=== PATIENT | female | born 1960 | race African-American/Black ===

== ENCOUNTER → 2016-10-04 | Outpatient (CLI) | payer OTHER ==
[~2016-10-04] MED LIST: ADULT LOW DOSE81 MG PO; AMLODIPINE BESY10 MG PO; APAP500 PO; ATIVAN1 MG PO; BENZTROPINE ME0.5 MG PO; CELEXA 20 MG TA20 MG PO; CLOZAPINE; CLOZAPINE25 MG PO; CORRECTOL5 M1 PO; DEPAKOTE500 MG PO; DUONEB 2.5-0.5 M3 ML INH; ENALAPRIL MALEAT5 M1 PO; FERRO-TIME325 MG PO; FERROUS GLUCON325 M4 PO; GEMFIBROZIL 60600 MG PO; GLUCOPHAGE1000 MG PO; GLUCOPHAGE500 MG PO; HALDOL5 MG/1 ML IM; HALOPERIDO50 MG/1 M1 IM; IRON325 PO; LANTUS SUBQ; LEVOTHYROXIN0.125 M1 PO; LEVOTHYROXIN0.137 M1 PO; LIPITOR20 MG PO; LITHIUM CARBON150 MG PO; MUCINEX600 MG PO; MULTI VITAMIN1 EACH PO; NEURONTIN 400400 M1 PO; SEROQUEL 100 M100 MG PO; THERAPEUTIC-M1 EAC2; VITCB500GO PO; ZPAK
== END ==
LOC: RAD 01:09
DX: Z12.31 Encounter for screening mammogram for malignant neoplasm of breast (principal)

== ENCOUNTER → 2016-12-21 | Outpatient (CLI) | payer OTHER | LOC: ULTRA 10-07 01:03 | DX: N63 Unspecified lump in breast (principal) ==

== ENCOUNTER → 2018-02-05 | Outpatient (CLI) | payer OTHER | LOC: RAD 12:41 → SPEECH 12:41 | DX: I11.0 Hypertensive heart disease with heart failure (principal); I50.9 Heart failure, unspecified; R13.13 Dysphagia, pharyngeal phase; E11.8 Type 2 diabetes mellitus with unspecified complications; E03.9 Hypothyroidism, unspecified; F20.0 Paranoid schizophrenia; M25.562 Pain in left knee ==

== ENCOUNTER 2018-10-03 13:53 | Inpatient (IN) | payer OTHER ==
[2018-10-03] VITALS (24 sets, daily range): BP systolic 78–107; BP diastolic 36–61
[~2018-10-03] VITALS: Ht 170.2 cm; Wt 67.4 kg
[~2018-10-03 13:53] MED LIST changes: -APAP500 PO; +ATIVAN0.5 MG PO; -ATIVAN1 MG PO; +BISA-LAX5 MG PO; -CORRECTOL5 M1 PO; -DUONEB 2.5-0.5 M3 ML INH; -GLUCOPHAGE1000 MG PO; +IPRAT-ALBUT 0.5-3 ML INH; -LEVOTHYROXIN0.137 M1 PO; +LEVOXYL125 MCG PO; +METFORMIN HCL1000 M1 PO; +TYLENOL325 MG PO
[2018-10-03 14:24] LABS: HEMATOCRIT 25.6 % (37.0-47.0); HEMOGLOBIN 8.5 gm/dL (12.0-15.0); MCH 28.3 pg (26.0-34.0); MCHC 33.1 g/dL (28.0-37.0); MCV 85.4 fL (80.0-100.0); PLATELET COUNT 629 thou/uL (150-400); RDW 16.5 % (10.5-14.5); WBC 12.9 thou/uL (4.0-11.0)
[2018-10-03 14:33] LABS: ANION GAP 11 mmol/L (7-16); BUN 15 mg/dL (7-18); CALCIUM 8.9 mg/dL (8.5-10.1); CHLORIDE 100 mmol/L (98-107); CO2 27 mmol/L (21-32); CREATININE 1.5 mg/dL (0.6-1.0); GLUCOSE 181 mg/dL (74-106); POTASSIUM 4.1 mmol/L (3.5-5.1); SODIUM 138 mmol/L (136-145)
[2018-10-03 14:35] LABS: URINE BILIRUBIN NEGATIVE (Negative); URINE BLOOD NEGATIVE (Negative); URINE CLARITY CLEAR; URINE COLOR YELLOW; URINE GLUCOSE-RANDOM* TRACE (Negative); URINE KETONES NEGATIVE (Negative); URINE LEUKOCYTES NEGATIVE (Negative); URINE NITRITE NEGATIVE (Negative); URINE PROTEIN (DIPSTICK) TRACE (Negative); URINE SPECIFIC GRAVITY >= 1.030 (1.005-1.035)
[2018-10-03 14:41] LABS: ALBUMIN 2.3 g/dL (3.4-5.0); SGOT 23 U/L (15-37); SGPT 36 U/L (30-65); TOTAL BILIRUBIN 0.3 mg/dL (<0.1-1.0); TOTAL PROTEIN 8.1 g/dL (6.4-8.2); TROPONIN-I <0.06 ng/mL (<0.06)
[2018-10-03 14:59] LABS: BE(vivo) -2.4 mmol/L (-2 to +3); HCO3 22.9 mmol/L (22.0-26.0); PO2 72.6 mmHg (80.0-100.0); pH 7.355 (7.360-7.450)
[2018-10-03 15:26] LABS: ABSOLUTE NEUTROPHILS 11.4 thou/uL (1.4-8.2)
[2018-10-03 15:27] LABS: ANISOCYTOSIS 1+; POLYCHROMASIA OCCASIONAL
[2018-10-03] MEDS ORDERED: HUMALOG100 UNIT/1 SUBQ (15:37)
[2018-10-03] MEDS ORDERED: ASPIR 8181 MG PO (15:39)
[2018-10-03] MEDS ORDERED: COREG6.25 MG PO (15:41)
[2018-10-03] MEDS ORDERED: LISINOPRIL2.5 MG PO (15:44)
[2018-10-03] MEDS ORDERED: TRAMADOL 50 MG50 MG PO (15:46)
[2018-10-03] MEDS ORDERED: OXYBUTYNIN 5 MG5 M2 PO (15:46)
[2018-10-03] MEDS ORDERED: GLUCOTROL5 MG PO (15:47)
[2018-10-03 16:59] LABS: HCO3 24.3 mmol/L (22.0-26.0); PCO2 48.3 mmHg (35.0-45.0); PO2 102.8 mmHg (80.0-100.0); sO2 97.2 % (92.0-98.0)
[2018-10-03 17:02] LABS: pH 7.319 (7.360-7.450)
[2018-10-03 18:57] LABS: % SATURATION 7 % (20-39); IRON 18 ug/dL (50-170); TIBC 241 ug/dL (250-450)
--- NOTE | 2018-10-03 19:03 | 2DMMODE ---
[facility] [place] [address] 2 D/M-MODE ECHOCARDIOGRAM Name: TIM BAZZI Room #: 240-P [facility] IN [facility]#: [id number] ������������� Admission: 10/03/18 ������������� Attend Phys: Huan Oliveira, Discharge: ��� ������������� ��� Date of : 60 Date of Service: 10/03/18 1903 �� Report #: [id number] �������� ��������������������������������������������[id number] THIS REPORT FOR: //name// APPROVED REPORT Study performed: 10/03/2018 17:51:11 EXAM: Comprehensive 2D, Doppler, and color-flow Echocardiogram Patient Location: ER Status: on-call/STAT BSA: 1.93 HR: 91 bpm BP: 87/50 mmHg Other Information Study Quality: Good Indications Short of air, Pericardial effusion, new onset CHF. Hx: HTN, HLP, DM, Tob. 2D Dimensions RVDd: 35.23 mm IVSd: 10.40 (7-11mm) LVOT Diam: 21.05 (18-24mm) LVDd: 55.59 mm PWd: 9.23 (7-11mm) Ascending Ao: 32.79 (22-36mm) LVDs: 45.86 (25-40mm) Aortic Root: 30.76 mm Volumes Left Atrial Volume (Systole) Single Plane 4CH: 42.36 mL Single Plane 2CH: 58.68 mL LA ESV Index: 28.00 mL/m2 Aortic Valve AoV Peak Shravan.: 1.50 m/s AO Peak Gr.: 9.04 mmHg LVOT Max P.41 mmHg LVOT Max V: 1.05 m/s YUMIKO Vmax: 2.43 cm2 Pulmonary Valve PV Peak Shravan.: 0.77 m/s PV Peak Gr.: 2.40 mmHg Tricuspid Valve [facility] [address] [place] [address] 2 D/M-MODE ECHOCARDIOGRAM Name: TIM BAZZI Room #: [address] [place] [address] [place] [facility].#: [id number] ������������� Admission: 10/03/18 ������������� Attend Phys: Huan Oliveira, Discharge: ��� ������������� ��� Date of : 60 Date of Service: 10/03/18 1903 �� Report #: [id number] �������� ��������������������������������������������[id number] TR Peak Shravan.: 2.29 m/s RAP Estimate: 10.00 mmHg TR Peak Gr.: 20.93 mmHg PA Pressure: 31.00 mmHg Left Ventricle The left ventricle is normal size. There is normal left ventricular wall thickness. Left ventricular systolic function is moderately decreased. LVEF is 40-45%. This study is not technically sufficient to allow evaluation of the LV diastolic function. Right Ventricle The right ventricle is normal size. Right ventricle is mildly hypokinetic. Atria The left atrium size is normal. The right atrium size is normal. Aortic Valve Aortic valve is trileaflet, minimally calcified. Moderate aortic regurgitation. There is no aortic valvular stenosis. Mitral Valve Mitral valve leaflets are mildly thickened. Moderate to severe mitral regurgitation No evidence of mitral valve stenosis. Tricuspid Valve The tricuspid valve is normal in structure. Mild tricuspid regurgitation. Estimated PAP is 30mmHg. Pulmonic Valve The pulmonary valve is normal in structure. Trace pulmonic regurgitation. Great Vessels The aortic root is normal in size. The ascending aorta is normal in size. IVC is normal in size and collapses <50% with inspiration. Pericardium Moderate to moderately large pericardial effusion. <Conclusion> Left ventricular systolic function is moderately decreased. LVEF is 40-45%. [facility] [address] [place] [address] 2 D/M-MODE ECHOCARDIOGRAM Name: BAZZITIM Room #: 240-P [facility] IN [facility].#: [id number] ������������� Admission: 10/03/18 ������������� Attend Phys: Huan Oliveira, Discharge: ��� ������������� ��� Date of : 60 Date of Service: 10/03/18 1903 �� Report #: [id number] �������� ��������������������������������������������[id number] Aortic valve is trileaflet, minimally calcified, no stenosis. Moderate aortic regurgitation. Mitral valve leaflets are mildly thickened. Moderate to severe mitral regurgitation Mild tricuspid regurgitation. Estimated pulmonary artery pressure of 30mmHg. Moderate to moderately large pericardial effusion. Pleural effusions EF similar to May 2013. AI similiar, MR less than previously. Pericardial effusion not present on prior study ��������������������������������������������� <ELECTRONICALLY SIGNED> ���������������������������������������� By: Kamaljit Segal MD, [facility] ��������������������������������������������� 10/03/181902 02 02 Kamaljit Segal MD, [facility] /INF
[2018-10-03 19:35] LABS: TOTAL PROTEIN 7.4 g/dL (6.4-8.2)
--- NOTE | 2018-10-03 23:03 | NUR ---
VASCULAR ACCESS CONSULTED FOR A CL FOR THIS PT ON MULTIPLE IV MEDS AND PRESSORS. 5FRTLPICC PLACED IN RT IJ PER HOSPITAL P&P. TIP AT THE [facility] AND RELEASED FOR USE. PLEASE SEE INSERTION NOTE FOR DETAILS.
[2018-10-04] VITALS (68 sets, daily range): BP systolic 63–137; BP diastolic 28–64
[2018-10-04 05:34] LABS: HEMATOCRIT 22.5 % (37.0-47.0); HEMOGLOBIN 7.5 gm/dL (12.0-15.0); MCH 28.6 pg (26.0-34.0); MCHC 33.4 g/dL (28.0-37.0); MCV 85.4 fL (80.0-100.0); RBC 2.63 mil/uL (4.20-5.00); RDW 16.3 % (10.5-14.5); WBC 11.4 thou/uL (4.0-11.0)
[2018-10-04 05:45] LABS: ANION GAP 7 mmol/L (7-16); BUN 16 mg/dL (7-18); CALCIUM 8.1 mg/dL (8.5-10.1); CHLORIDE 102 mmol/L (98-107); CO2 29 mmol/L (21-32); CREATININE 1.4 mg/dL (0.6-1.0); GLUCOSE 155 mg/dL (74-106); MAGNESIUM 1.8 mg/dL (1.8-2.4); POTASSIUM 3.2 mmol/L (3.5-5.1); SODIUM 138 mmol/L (136-145); TROPONIN-I <0.06 ng/mL (<0.06)
--- NOTE | 2018-10-04 06:25 | NUR ---
END OF SHIFT SUMMARY: Pt has been intermittently restless and awake tonight despite being on Propofol 20-25 mcg/kg/min. Pt opens eyes to voice, able to follow commands and lift head off pillow. BP low with sedation so pt has been on Levophed gtt to keep SBP >90 and MAP >60; Levophed currently at 12 mcg/min. Pt given Lasix at beginning of shift, diuresed well, 2050 cc clear yellow urine this shift. Monitor remains sinus rhythm with 1st degree AVB and BBB. O2 sat 98-100% on 40% FiO2 per vent. Suctioning minimal pink tinged thin secretions from ETT. Remains in soft wrist restraints bilaterally as pt always reaches for ETT when awake.
[2018-10-04 09:12] LABS: APTT 32.7 Seconds (24.5-32.8); INR 1.3; PROTIME 13.1 Seconds (9.3-11.4)
--- NOTE | 2018-10-04 11:20 | HC ---
[facility] [place] [address] CONSULTATION Name: TIM BAZZI Room #: 240-[facility] IN M.R.#: [id number] Admission: 10/03/18 ������������������ Attend Phys: Huan Oliveira MD Discharge: ������������������ Date of : 60 Report #: [id number] THIS REPORT FOR: //name// CC: Orlando Oliveira DATE OF SERVICE: 10/03/2018 REASON FOR CONSULTATION: I was asked to evaluate concerning respiratory failure and pulmonary infiltrate with congestive heart failure. HISTORY OF PRESENT ILLNESS: The patient was a 58-year-old who was discharged yesterday, [facility] after treatment for pneumonia. She has underlying paranoid schizophrenia, hypertension, hyperlipidemia, diabetes and Hodgkin's lymphoma. Unclear if she is on any treatment for her lymphoma. Unclear of the stage. She developed acute respiratory compromise in the snf this morning. No fever, chills or sweats. No definite cough or sputum production. No nausea or vomiting. On presentation to the Emergency Room, she became unresponsive and required intubation and mechanical ventilation. She has had minimal tracheal secretions. She has been on the ventilator, 40% FiO2 with ABG showing a pO2 of 104, pCO2 of 48 and pH 7.3. Chest x-ray showed evidence of pleural effusions. Echocardiogram showed a fairly large pericardial effusion and bilateral pleural effusions. She had diffuse ST wave changes. CT of the head was negative. CT of the chest showed no definite infiltrate, although she had atelectasis and right upper lobe bronchiectasis. She has had no vomiting or diarrhea. There has been no abdominal pain reported. She has now an indwelling Valencia catheter. No rashes or decubiti. REVIEW OF SYSTEMS: A 10-point review of systems was negative other than what is described above. ALLERGIES: None known. MEDICATIONS: As noted on her MAR, now on vancomycin, Zosyn and Levaquin. PAST MEDICAL HISTORY: Paranoid schizophrenia, hypothyroidism, hyperlipidemia, Hodgkin's disease, diabetes, iron deficiency anemia and hypertension. FAMILY HISTORY: Unobtainable. SOCIAL HISTORY: Smoker of cigarettes. No significant alcohol intake. PHYSICAL EXAMINATION: VITAL SIGNS: Afebrile, blood pressure 95/52 on 5 mcg of Levophed, heart rate 94, intubated on FIO2 of 40%. She was sedated on propofol. IV access without drainage or erythema. [address] [address] CONSULTATION Name: TIM BAZZI Jane Room #: 240-P [facility] IN .R.#: [id number] Admission: 10/03/18 ������������������ Attend Phys: Huan Oliveira MD Discharge: ������������������ Date of : 60 Report #: [id number] HEENT: Eyes without scleral icterus. Pupils are equal, round and reactive to light. Mouth was orally intubated with no lesions identified. NECK: Supple. LUNGS: Decreased breath sounds in the bases bilaterally. HEART: Distant heart sounds with no murmur, gallop or rub. ABDOMEN: Soft, nontender, no hepatosplenomegaly or mass appreciated. GENITOURINARY: External genitalia without lesion or mass with indwelling Valencia catheter. RECTAL: Not performed. EXTREMITIES: Without clubbing, cyanosis or edema. NEUROLOGIC: The patient was sedated and did not respond to painful stimuli. Unable to assess mood. LABORATORY STUDIES: Hemoglobin 8.5, WBC 12.9 and platelet count 629,000. Creatinine 1.5. Alkaline phosphatase 155. Liver function tests normal. LDH 186. TSH 6.3. Sedimentation rate 103. CRP 242. Urinalysis is unremarkable. BNP 3243. Procalcitonin less than 0.05. Blood and sputum cultures are pending. Echocardiogram: EF of 40-45% with moderate to large pericardial effusion, moderate MR and moderate aortic regurgitation. CT of the chest, large pericardial effusion, bilateral pleural effusions, basilar atelectasis and right upper lobe bronchiectasis. IMPRESSION: 1. A 58-year-old recently hospitalized for pneumonia now with acute respiratory failure, pericardial effusion, I am suspecting pericarditis the cause of which is still indeterminate. The patient does have a history of lymphoma. I do not know much more than that regarding this diagnosis. There was no adenopathy seen on CT scan. No evidence of pneumonia on CT scan. No evidence of urinary tract infection. 2. Hypertension, diabetes, schizophrenia and Hodgkin's lymphoma. RECOMMENDATION: We will continue with healthcare-associated antibiotic coverage for now pending further studies. Would anticipate sampling the pericardium fluid or pleural fluid to further evaluate this. Her sedimentation rate is markedly elevated. We will check viral studies. Continue full ICU support. Sixty minutes. ��������������������������������������������� <ELECTRONICALLY SIGNED> ���������������������������������������� By: Gabino Murillo MD ��������������������������������������������� 10/04/18 1120 2215 0949 Gabino Murillo MD /nt
[2018-10-04 15:01] LABS: CLARITY CLOUDY; COLOR DARK YELLOW; SOURCE RIGHT THORACENTESIS; TOTAL VOLUME 60 mL
[2018-10-04 15:18] LABS: BF NUCLEATED CELLS 602; BF RBC 8758
[2018-10-04 15:45] LABS: BE(vivo) -3.8 mmol/L (-2 to +3); HCO3 22.7 mmol/L (22.0-26.0); sO2 97.6 % (92.0-98.0)
[2018-10-04 15:47] LABS: pH 7.292 (7.360-7.450)
[2018-10-04 16:03] LABS: BF MACROPHAGE 14; BF NEUTROPHILS 1
--- NOTE | 2018-10-04 16:30 | NUR ---
patient admits from [facility] with SOA. Patient intubated and sedated. Patient has a PA. Carine mckee sp with PA office Saud Ocasio who is aware of admission and consent to tx. Patient recently dc [facility]. Called and left message at [facility] on womens unit, to call [email or web address] for update. Casemgt following for dc planning.
--- NOTE | 2018-10-04 17:53 | EKG ---
[address] [address] ELECTROCARDIOGRAM REPORT Name: TIM BAZZI Room #: 240-P ADM IN M.R.#: [id number] ������������������ Admission: 10/03/18 ������������������ Attend Phys: Huan Oliveira MD Discharge: ������������������ Date of : 60 Report #: [id number] ����������������������������������������������������������������� [id number] THIS REPORT FOR: //name// [facility] ED Test Date: 2018-10-03 Test Time: 17:23:30 Pat Name: TIM BAZZI Department: Room: 240 Gender: F Payroll Human Resources Assistant: AMIRA : 1960 Requested By: Amadou Hernandez Order Number: [id number] MD: Kamaljit Segal Measurements Intervals [place] Rate: 96 P: 58 ND: 172 QRS: -46 QRSD: 142 T: 72 QT: 428 QTc: 541 Interpretive Statements Sinus rhythm IVCD, consider atypical RBBB Diffuse ST elevation, consider pericarditis Compared to ECG 05/22/2013 04:26:[address] segment elevation is now present Electronically Signed On 10-04-2018 17:53:33 CDT by Kamaljit Segal [email or web address] ��������������������������������������������� <ELECTRONICALLY SIGNED> ���������������������������������������� By: Kamaljit Segal MD, [facility] ��������������������������������������������� 10/04/18 1753 1723 172 Kamaljit Segal MD, [facility] /EPI
--- NOTE | 2018-10-04 18:02 | EKG ---
[address] [address] ELECTROCARDIOGRAM REPORT Name: TIM BAZZI Room #: 240-P ADM IN M.R.#: [id number] ������������������ Admission: 10/03/18 ������������������ Attend Phys: Huan Oliveira MD Discharge: ������������������ Date of : 60 Report #: [id number] ����������������������������������������������������������������� [id number] THIS REPORT FOR: //name// [facility] Test Date: 2018-10-04 Test Time: 07:43:40 Pat Name: TIM BAZZI Department: Room: 240 P Gender: F Fish Cutter: ALVAREZ : 1960 Requested By: Kamaljit Segal Order Number: [id number] MD: Kamaljit Segal Measurements Intervals [place] Rate: 96 P: OR: QRS: -44 QRSD: 145 T: 81 QT: 533 QTc: 674 Interpretive Statements Sinus rhythm with first-degree AV block RBBB and LAFB Minimal diffuse ST elevation, consider pericarditis Compared to ECG 05/22/2013 04:26:58 no significant change was found Electronically Signed On 10-04-2018 18:02:30 CDT by aKmaljit Segal [email or web address] ��������������������������������������������� <ELECTRONICALLY SIGNED> ���������������������������������������� By: Kamaljit Segal MD, [facility] ��������������������������������������������� 10/04/18 1802 0743 0743 Kamaljit Segal MD, [facility] /EPI
--- NOTE | 2018-10-04 19:32 | NUR ---
VERBAL CONSENT GIVEN FOR THORACENTESIS BY FACILITY-SEE CONSENT. PT TOLERATED PROCEEDURE WELL. VITAL SIGNS STABLE, ORDERS FROM PARESH TO REEVALUATE THE NEED FOR CPAP TRIAL AFTER THORACENTESIS. 1600 CPAP ATTEMPTED, BLOOD GASES NOT IDEAL, ORDERS PER PARESH TO PUT BACK ON AC SETTINGS AND DRAW A BLOOD GAS IN TWO HOURS-REPORTED THIS TO SARAH ESPINAL. ATTEMPTED TO SWITCH PROPOFOL TO PRECEDEX AND TITRATE LEVOPHED. PT DID NOT TOLERATE ATTEMPT. PT REMAINS ON LEVOPHED 10MCG AND PROPOFOL 21MCG. VITAL SINGS STABLE WITH THESE SETTINGS.
[2018-10-04 19:48] LABS: BE(vivo) 2.9 mmol/L (-2 to +3); HCO3 25.5 mmol/L (22.0-26.0); PCO2 31.2 mmHg (35.0-45.0); PO2 93.4 mmHg (80.0-100.0); sO2 97.9 % (92.0-98.0)
[2018-10-05] VITALS (90 sets, daily range): BP systolic 65–126; BP diastolic 27–76
--- NOTE | 2018-10-05 04:45 | NUR ---
ASSUMED CARE @ 1900 10/04/18, PT ASSESSMENTS AND VSS COMPLETE PER ICU PROTOCOL. PT ABLE TO FOLLOW COMMANDS, PT ON LOW DOSE PROPOFOL AND PRECEDEX GTT WAS INITIATED DURING THE SHIFT, BP TOLERATING BETTER NOW, LEVO GTT DOWN TO 2MCG FROM 10MCG AT START OF SHIFT. PT IN 1 DEGREE AVB. PT ON THE VENT, SEE PROCESS INTERVENTIONS FOR SPECIFIC SETTING, SATS IN THE HIGH 90'S. OG IN PLACE TO LIS, BELLY DISTENDED, DRUM-LIKE SOUND HEARD WHEN PERCUSSED, TRENT FLOOR PLAN ADJUSTER NOTIFIED, KUB ORDERED, STILL AWAITING RESULTS. BA IN PLACE, GOP NOTED. RESTRAINTS IN PLACE FOR PATIENT SAFETY. FALL PRECAUTIONS IN PLACE. PLAN OF CARE- WILL CONT TO MONITOR.
[2018-10-05 04:52] LABS: HEMATOCRIT 21.1 % (37.0-47.0); HEMOGLOBIN 7.1 gm/dL (12.0-15.0); MCH 28.5 pg (26.0-34.0); MCHC 33.4 g/dL (28.0-37.0); MCV 85.4 fL (80.0-100.0); RBC 2.47 mil/uL (4.20-5.00); RDW 16.2 % (10.5-14.5); WBC 12.9 thou/uL (4.0-11.0)
[2018-10-05 05:01] LABS: CALCIUM 7.8 mg/dL (8.5-10.1); CREATININE 1.1 mg/dL (0.6-1.0); MAGNESIUM 2.4 mg/dL (1.8-2.4); POTASSIUM 3.8 mmol/L (3.5-5.1)
[2018-10-05 05:18] LABS: HCO3 23.1 mmol/L (22.0-26.0); PO2 97.2 mmHg (80.0-100.0); pH 7.426 (7.360-7.450); sO2 97.6 % (92.0-98.0)
--- NOTE | 2018-10-05 08:51 | EKG ---
[place] [address] [employer] [facility] [employer] [place] [address] ELECTROCARDIOGRAM REPORT Name: TIM BAZZI Room #: 240- ADM IN M.R.#: [id number] ������������������ Admission: 10/03/18 ������������������ Attend Phys: Huan Oliveira MD Discharge: ������������������ Date of : 60 Report #: [id number] ����������������������������������������������������������������� [id number] THIS REPORT FOR: //name// [facility] Test Date: 2018-10-05 Test Time: 07:05:22 Pat Name: TIM BAZZI Department: Room: 240 Gender: F Sleeve Presser Operator: ALVAREZ : 1960 Requested By: Kamaljit Segal Order Number: [id number] MD: Jean Rodriguez Measurements Intervals [place] Rate: 83 P: 62 MT: 224 QRS: -49 QRSD: 153 T: 74 QT: 461 QTc: 542 Interpretive Statements Sinus rhythm Prolonged MT interval RBBB and LAFB nonspecific ST segment abnormalities Compared to ECG 10/04/2018 07:43:40 First degree AV block now present Electronically Signed On 10-05-2018 8:51:10 CDT by Jean Rodriguez [email or web address] ��������������������������������������������� <ELECTRONICALLY SIGNED> ���������������������������������������� By: Jean Rodriguez MD ��������������������������������������������� 10/05/18 0851 4 4 Jean Rodriguez MD /NIESHA
[2018-10-05 09:00] LABS: CALCIUM 8.1 mg/dL (8.5-10.1); CREATININE 1.1 mg/dL (0.6-1.0)
[2018-10-05 12:27] LABS: BE(vivo) -2.5 mmol/L (-2 to +3); HCO3 21.6 mmol/L (22.0-26.0); PCO2 34.2 mmHg (35.0-45.0); PO2 117.6 mmHg (80.0-100.0); pH 7.419 (7.360-7.450); sO2 98.4 % (92.0-98.0)
[2018-10-05 18:06] LABS: BODY FLUID ALBUMIN 1.6 g/dL (()); BODY FLUID AMYLASE 17 U/L (()); BODY FLUID GLUCOSE 172 mg/dL (()); BODY FLUID LDH 100 IU/L (()); BODY FLUID PROTEIN 3.5 g/dL (())
[2018-10-05 18:06] LABS: ANA INTERPRETATION Positive (Negative)
--- NOTE | 2018-10-05 18:42 | NUR ---
PT EXTUBATED AT 1255, STARTED ON FACE SHIELD 40% THEN TO 2L NC. PT SOA WITH EXERTION. A/O X 2, VERY RESTLESS. ABLE TO TITRATE LEVOPHED OFF, BUT PRECEDEX RESTARTED FOR AGITATION AND RESTLESSNESS. PT MAKING MANY ATTEMPTS TO GET OUT OF BED AND DISCONNECT TUBES AND WIRES. PT D/C'D BOTH PERIPHERAL IV'S, R IJ REMAINS INTACT. PT ABD DISTENDED, SALINE ENEMA GIVEN AND PT SIPPING ON MAG CITRATE. PT HAD LARGE HARD BM IN BEDSIDE COMMODE. PT UP X 1 ASSIST.
--- NOTE | 2018-10-05 20:00 | NUR ---
Pt is showing sign of aspiration when I let her take a sip of water. Drank few sip of nectar thick water w/o any troble. Will ask speech to see in am.
--- NOTE | 2018-10-05 22:35 | NUR ---
Pt had been very restless,anxious and impulsive. Precedex gtt is infusing with good effect but it seems to dropped her BP once I increased higher dosage. Notified LÓPEZ Will; seee new order.
[2018-10-06] VITALS (93 sets, daily range): BP systolic 69–131; BP diastolic 29–94
--- NOTE | 2018-10-06 00:40 | NUR ---
Pt looks much more comfortable. Able to rest at this time. Will continue to monitor changes.
[2018-10-06 05:32] LABS: CALCIUM 8.5 mg/dL (8.5-10.1); CREATININE 1.1 mg/dL (0.6-1.0); MAGNESIUM 2.9 mg/dL (1.8-2.4)
[2018-10-06 06:31] LABS: HEMATOCRIT 22.7 % (37.0-47.0); HEMOGLOBIN 7.2 gm/dL (12.0-15.0); MCH 28.1 pg (26.0-34.0); MCHC 31.8 g/dL (28.0-37.0); MCV 88.5 fL (80.0-100.0); RBC 2.56 mil/uL (4.20-5.00); RDW 16.5 % (10.5-14.5); WBC 14.3 thou/uL (4.0-11.0)
--- NOTE | 2018-10-06 07:00 | NUR ---
Pt is continue to be tachypnic. Her ABD remains very distended. She has very little bowel sound. No BM in this shift after receiving laxative last night. report is given to am shift RN.
--- NOTE | 2018-10-06 11:01 | EKG ---
[place] [address] [facility] [place] [address] ELECTROCARDIOGRAM REPORT Name: TIM BAZZI Room #: 240- ADM IN M.R.#: [id number] ������������������ Admission: 10/03/18 ������������������ Attend Phys: Huan Oliveira MD Discharge: ������������������ Date of : 60 Report #: [id number] ����������������������������������������������������������������� [id number] THIS REPORT FOR: //name// [facility] Test Date: 2018-10-06 Test Time: 07:11:56 Pat Name: TIM BAZZI Department: Room: 240 Gender: F Clinical Cytogenetics Director: VILMA : 1960 Requested By: Kamaljit Segal Order Number: [id number] MD: Jean Rodriguez Measurements Intervals [place] Rate: 85 P: 9 FL: 178 QRS: -44 QRSD: 165 T: 84 QT: 467 QTc: 556 Interpretive Statements Sinus rhythm RBBB and LAFB Probable left ventricular hypertrophy Compared to ECG 10/05/2018 07:05:22 First degree AV block no longer present Electronically Signed On 10-06-2018 11:01:30 CDT by Jean Rodriguez [email or web address] ��������������������������������������������� <ELECTRONICALLY SIGNED> ���������������������������������������� By: Jean Rodriguez MD ��������������������������������������������� 10/06/18 1101 0 0 Jean Rodriguez MD /NIESHA
--- NOTE | 2018-10-06 14:00 | NUR ---
DR. RICHARDS HERE. UPDATE GIVEN. REPORTED HYPOTENSION AND LOW URINE OUTPUT. 500CCBOLUS GIVEN.
--- NOTE | 2018-10-06 15:00 | NUR ---
DR. MEJÍA REPORTED LOW URINE OUTPUT. ORDERS GIVEN. NS INCREASED TO 100
--- NOTE | 2018-10-06 18:40 | NUR ---
END OF SHIFT NOTE. PT HAD TO BE RESTRAINED TODAY, CRAWLING OOB. VERY CONFUSED. 1 L BOLUS FOR LOW URINE OUTPUT ORDERED. TITRATING LEVOPHED FOR MAP 65. PRECEDEX GTT. ATIVAN AND HALDOL PRN.
--- NOTE | 2018-10-06 19:10 | NUR ---
Pt is oliguric today per report. Her maxwell with some blood tinged in line. Flushes her maxwell per sterile technique with 50 cc of sterile water. All returned, no s/sx of any obstruction. IVF bolus is infusing per order. Labor breathing notes. Will slowdown IVF, obtain lab stat and notify physician alternative medicine practitioner.
[2018-10-06 19:42] LABS: CALCIUM 7.7 mg/dL (8.5-10.1); CREATININE 1.4 mg/dL (0.6-1.0); POTASSIUM 4.7 mmol/L (3.5-5.1)
--- NOTE | 2018-10-06 19:43 | NUR ---
Pt is more labored breathing tonight. Exspiratory wheeze t/o her lung field. RR 26, O2 sat 99% notes on the monitor. RT gave tx w/o any improvement. Slowly down IVF to 100 cc /hr. Notified LÓPEZ Will television news producer; see new orders. Dobhofff placed w/o any difficulty on Rt nare. No s/sx of any injury indicates. She is sahra procedure. Will obtain CXR and KUB stat.
[2018-10-06 20:07] LABS: BE(vivo) -4.1 mmol/L (-2 to +3); PCO2 38.5 mmHg (35.0-45.0); PO2 88.3 mmHg (80.0-100.0); pH 7.355 (7.360-7.450); sO2 96.4 % (92.0-98.0)
--- NOTE | 2018-10-06 20:30 | NUR ---
I ATTEMPTED TO ADVANCE DOBHOFF TUBE MORE THAN 55 CM PRIOR KUB OBTAIN. BUT I FELT GREAT RESISTANT. HER KUB IS CONFIRMED DOBHOFF IS IN HER STOMACH. I WILL LEAVE IT AT 55 CM FOR NOW. WILL NOTIFY MOTEL MAID LEARNING DEVELOPER.
[2018-10-06 22:05] LABS: ADENOVIRUS Negative (Negative); INFLUENZA A Negative (Negative); INFLUENZA B Negative (Negative); METAPNEUMOVIRUS Negative (Negative); PARAINFLUENZA 1 Negative (Negative); PARAINFLUENZA 2 Negative (Negative); PARAINFLUENZA 3 Negative (Negative); RHINOVIRUS Negative (Negative); RSV A Negative (Negative); RSV B Negative (Negative)
[2018-10-07] VITALS (79 sets, daily range): BP systolic 51–130; BP diastolic 17–76
[2018-10-07 04:39] LABS: HEMOGLOBIN 7.6 gm/dL (12.0-15.0); MCH 28.7 pg (26.0-34.0); MCHC 32.9 g/dL (28.0-37.0); MCV 87.3 fL (80.0-100.0); RBC 2.63 mil/uL (4.20-5.00); RDW 16.9 % (10.5-14.5); WBC 13.3 thou/uL (4.0-11.0)
[2018-10-07 04:48] LABS: CALCIUM 8.2 mg/dL (8.5-10.1); CREATININE 1.5 mg/dL (0.6-1.0); MAGNESIUM 3.1 mg/dL (1.8-2.4); POTASSIUM 4.7 mmol/L (3.5-5.1)
--- NOTE | 2018-10-07 06:02 | NUR ---
Pt remains in a critical conditions. Continue to be on low dose of levophed due to hypotention. No s/sx of any peripheral ischemic indiates. No changes of her breathing status from last assessments. Her edematous seems worsen this am. She gained nearly 6.7 lbs within 24 hrs. Her urine output remain low. She made only 200 of urine after lasix IV and fluid bolus. Cr and BUN increased this am. Notified LÓPEZ Will. No new order at this time. Continue to observe her closely.
[2018-10-07 10:39] LABS: URINE CREATININE-RANDOM* 196.6 mg/dL; URINE SODIUM-RANDOM* <5 mmol/L
--- NOTE | 2018-10-07 10:53 | EKG ---
[address] [address] ELECTROCARDIOGRAM REPORT Name: TIM BAZZI Room #: 240-P ADM IN M.R.#: [id number] ������������������ Admission: 10/03/18 ������������������ Attend Phys: Huan Oliveira MD Discharge: ������������������ Date of : 60 Report #: [id number] ����������������������������������������������������������������� [id number] THIS REPORT FOR: //name// 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 Assembler: RIMA : 1960 Requested By: Kamaljit Segal Order Number: [id number] MD: Jean Rodriguez Measurements Intervals [place] Rate: 89 P: 14 FL: 180 QRS: -43 QRSD: 157 T: 82 QT: 450 QTc: 548 Interpretive Statements Sinus rhythm RBBB and LAFB Nonspecific ST segment abnormalities Compared to ECG 10/06/2018 07:11:56 Myocardial infarct finding now present Electronically Signed On 10-07-2018 10:53:15 CDT by Jean Rodriguez [email or web address] ��������������������������������������������� <ELECTRONICALLY SIGNED> ���������������������������������������� By: Jean Rodriguez MD ��������������������������������������������� 10/07/18 1053 D: [id number] 3 Jean Rodriguez MD /NIESHA
--- NOTE | 2018-10-07 18:31 | NUR ---
END OF SHIFT NOTE. PT REMAINED SEDATE MOST OF THE DAY BUT THEN WOKE UP AND ATTEMPTED TO CRAWL OOB. ATIVAN 0.5IV GIVEN. DOBB MARY IN PLACE. REMAINS OLIGURIC. RANDOM NA AND CR CALLED TO DR. BACON. REMAINS ON PRECEDEX AT 0.5. LEVOPHED WEANED OFF.
[2018-10-08] VITALS (25 sets, daily range): BP systolic 90–140; BP diastolic 56–103
--- NOTE | 2018-10-08 04:23 | NUR ---
pt assesment as charted, repositioned q 2hrs and prn thru the noc, prn aggition meds given earlier in the evening, precidex and fluids infusing, vss, bilat wrist restraints in place, dophoff capped, will con't to monitor per ppoc.
[2018-10-08 05:17] LABS: ABSOLUTE NEUTROPHILS 10.4 thou/uL (1.4-8.2); BASOPHILS 0.1 % (0.0-2.0); HEMATOCRIT 23.8 % (37.0-47.0); HEMOGLOBIN 7.5 gm/dL (12.0-15.0); LYMPHOCYTES 5.9 % (24.0-44.0); MCH 27.8 pg (26.0-34.0); MCHC 31.5 g/dL (28.0-37.0); MCV 88.3 fL (80.0-100.0); MONOCYTES 6.5 % (1.0-8.0); PLATELET COUNT 499 thou/uL (150-400); POLYS 87.5 % (36.0-66.0); RBC 2.69 mil/uL (4.20-5.00); RDW 17.1 % (10.5-14.5); WBC 11.9 thou/uL (4.0-11.0)
[2018-10-08 05:18] LABS: ALBUMIN 2.1 g/dL (3.4-5.0); CALCIUM 8.4 mg/dL (8.5-10.1); CREATININE 1.4 mg/dL (0.6-1.0); POTASSIUM 4.7 mmol/L (3.5-5.1)
[2018-10-08 05:32] LABS: BE(vivo) -4.8 mmol/L (-2 to +3); HCO3 19.6 mmol/L (22.0-26.0); PCO2 33.4 mmHg (35.0-45.0); PO2 106.2 mmHg (80.0-100.0); pH 7.386 (7.360-7.450); sO2 97.9 % (92.0-98.0)
--- NOTE | 2018-10-08 08:20 | EKG ---
[address] [address] ELECTROCARDIOGRAM REPORT Name: TIM BAZZI Room #: 240-P ADM IN M.R.#: [id number] ������������������ Admission: 10/03/18 ������������������ Attend Phys: Huan Oliveira MD Discharge: ������������������ Date of : 60 Report #: [id number] ����������������������������������������������������������������� [id number] THIS REPORT FOR: //name// [facility] Test Date: 2018-10-08 Test Time: 07:32:04 Pat Name: TIM BAZZI Department: Room: 240 P Gender: F Nail Technician: ALVAREZ : 1960 Requested By: Kamaljit Segal Order Number: [id number] MD: Goyo Loo Measurements Intervals [place] Rate: 97 P: 48 AR: 179 QRS: -43 QRSD: 149 T: 85 QT: 415 QTc: 527 Interpretive Statements Sinus rhythm RBBB and LAFB Lateral leads are also involved Compared to ECG 10/07/2018 07:44:33 Electronically Signed On 10-08-2018 8:19:47 CDT by Goyo Loo [email or web address] ��������������������������������������������� <ELECTRONICALLY SIGNED> ���������������������������������������� By: Goyo Loo MD ��������������������������������������������� 10/08/18 0819 1 1 Goyo Loo MD /NIESHA
--- NOTE | 2018-10-08 09:50 | 2DMMODE ---
[facility] [address] [place] [address] 2 D/M-MODE ECHOCARDIOGRAM Name: TIM BAZZI Room #: 240-P [facility] IN ..#: [id number] ������������� Admission: 10/03/18 ������������� Attend Phys: Huan Oliveira, Discharge: ��� ������������� ��� Date of : 60 Date of Service: 10/08/18 0950 �� Report #: [id number] �������� ��������������������������������������������[id number] THIS REPORT FOR: //name// APPROVED REPORT Study performed: 10/08/2018 08:07:33 EXAM: Comprehensive 2D, Doppler, and color-flow Echocardiogram Patient Location: ICU Room #: 240 Status: routine BSA: 1.89 HR: 108 bpm BP: 119/62 mmHg Rhythm: Tachycardia Other Information Study Quality: Adequate Technically limited study due to uncooperative patient. Indications COPD Diabetes Pericardial Effusion 2D Dimensions RVDd: 40.99 mm IVSd: 6.77 (7-11mm) LVOT Diam: 21.71 (18-24mm) LVDd: 56.98 mm PWd: 9.73 (7-11mm) Ascending Ao: 34.38 (22-36mm) LVDs: 46.23 (25-40mm) Aortic Root: 32.16 mm IVC: 23.00 mm Volumes Left Atrial Volume (Systole) Single Plane 4CH: 52.91 mL Single Plane 2CH: 62.93 mL LA ESV Index: 32.00 mL/m2 Aortic Valve AoV Peak Shravan.: 1.54 m/s AO Peak Gr.: 9.45 mmHg LVOT Max P.67 mmHg LVOT Max V: 0.82 m/s YUMIKO Vmax: 1.97 cm2 AI Vmax: 4.28 m/s [facility] [address] [place] [address] 2 D/M-MODE ECHOCARDIOGRAM Name: TIM BAZZI Room #: [address] [place] [address] [place] [address]#: [id number] ������������� Admission: 10/03/18 ������������� Attend Phys: Huan Oliveira, Discharge: ��� ������������� ��� Date of : 60 Date of Service: 10/08/18 0950 �� Report #: [id number] �������� ��������������������������������������������[id number] AI Amador: 4.14 m/s2 AI PHT: 299.98 ms Mitral Valve MV E Max Shravan.: 1.40 m/s IVRT: 44.98 ms Pulmonary Valve PV Peak Shravan.: 0.74 m/s PV Peak Gr.: 2.19 mmHg Tricuspid Valve TR Peak Shravan.: 3.50 m/s RAP Estimate: 64.00 mmHg TR Peak Gr.: 49.05 mmHg Left Ventricle Left ventricle is at the upper limits of normal. There is normal left ventricular wall thickness. Left ventricular systolic function is mildly decreased. LVEF is 45%. This study is not technically sufficient to allow evaluation of the LV diastolic function. Right Ventricle Right ventricle is mildly dilated. The right ventricular systolic function is normal. Atria The left atrium size is normal. Right atrium is mildly dilated. Aortic Valve The aortic valve is normal in structure. Moderate aortic regurgitation. There is no aortic valvular stenosis. Mitral Valve Mitral valve leaflets are mildly thickened. Severe mitral regurgitation. No evidence of mitral valve stenosis. Tricuspid Valve The tricuspid valve is normal in structure. Severe tricuspid regurgitation. PAP is estimated at 64 mmHg. Pulmonic Valve The pulmonary valve is normal in structure. Mild pulmonic regurgitation. Great Vessels The aortic root is normal in size. IVC is dilated and collapses [facility] [address] [place] [address] 2 D/M-MODE ECHOCARDIOGRAM Name: TIM BAZZI Room #: 240-P [facility] IN .R.#: [id number] ������������� Admission: 10/03/18 ������������� Attend Phys: Huan Oliveira, Discharge: ��� ������������� ��� Date of : 60 Date of Service: 10/08/18 0950 �� Report #: [id number] �������� ��������������������������������������������[id number] <50% with inspiration. Pericardium Small pericardial effusion. No echo indications of pericardial tamponade. Moderate pleural effusion. <Conclusion> Left ventricle is at the upper limits of normal. There is normal left ventricular wall thickness. Left ventricular systolic function is mildly decreased. LVEF is 45%. Right ventricle is mildly dilated. Right atrium is mildly dilated. Moderate aortic regurgitation. Severe mitral regurgitation. Severe tricuspid regurgitation. PAP is estimated at 64 mmHg. Small pericardial effusion. No echo indications of pericardial tamponade. Moderate pleural effusion. ��������������������������������������������� <ELECTRONICALLY SIGNED> ���������������������������������������� By: Jean Rodriguez MD ��������������������������������������������� 10/08/1850 Jean Rodriguez MD /INF
--- NOTE | 2018-10-08 09:59 | NUR ---
If ready to use dobhoff for enteral nutrition, recommend jevity 1.5 at goal 50ml/hr. Defer any fluid needs to physician
[2018-10-08 10:04] LABS: SOURCE THORACENTESIS
--- NOTE | 2018-10-08 13:59 | NUR ---
PT HAVING INCREASED WORK OF BREATHING THIS AM. DR YODER NOTIFIED AND PT PUT ON BIPAP. MAINTENANCE IV FLUIDS D/C'D. ONETIME IV LASIX GIVEN THIS AFTERNOON. PRECEDEX GTT @ 0.5, PT STILL MILDLY RESTLESS BUT LETHARGIC. PT CONTINUES TO BE CONFUSED.
[2018-10-09] VITALS (26 sets, daily range): BP systolic 93–134; BP diastolic 55–77
--- NOTE | 2018-10-09 02:48 | NUR ---
SHIFT NOTE PT ASSESSMENT AND VS PER CHARTING. PT TURNED Q2H AND PRN. PT CLEANED AND LINEN CHANGE PERFOEMED. WILL CONTINUE TO MONITOR TILL THE END OF THE SHIFT.
[2018-10-09 04:43] LABS: ALBUMIN 2.1 g/dL (3.4-5.0); CALCIUM 8.7 mg/dL (8.5-10.1); CREATININE 1.2 mg/dL (0.6-1.0); PHOSPHORUS 4.9 mg/dL (2.5-4.9); POTASSIUM 4.8 mmol/L (3.5-5.1)
[2018-10-09 07:37] LABS: BE(vivo) -3.6 mmol/L (-2 to +3); HCO3 21.2 mmol/L (22.0-26.0); PO2 132.6 mmHg (80.0-100.0); pH 7.376 (7.360-7.450); sO2 98.6 % (92.0-98.0)
--- NOTE | 2018-10-09 14:55 | NUR ---
FOLLOWING FOR DC PLANNING. CLINICAL INFO REVIEWED. UPDATE TO NIKHIL MARIE AT [facility] PA OFFICE 10/08 AND TODAY 10/09/18, APPEARS APPROPRIATE FOR [facility] STAY AND AWAITING NIKHIL'S COMMUNICATION R/T PA OFFICE CONSENT FOR LTACH.
[2018-10-10] VITALS (28 sets, daily range): BP systolic 85–138; BP diastolic 53–77
[2018-10-10 04:32] LABS: CALCIUM 8.3 mg/dL (8.5-10.1); CREATININE 1.2 mg/dL (0.6-1.0); MAGNESIUM 2.5 mg/dL (1.8-2.4); POTASSIUM 4.5 mmol/L (3.5-5.1)
--- NOTE | 2018-10-10 10:07 | PATH ---
[facility] [address] [facility] [place] [address] PATHOLOGY RPT PROCEDURE Name: TIM BAZZI Room #: 240-P ADM IN .R.#: [id number] ������������������ Admission: 10/03/18 ������������������ Date of : 60 Discharge: Report #: [id number] Path Case #: [id number] Note [facility] Accession Number: [id number] TESTS RESULT FLAG UNITS REF RANGE LAB Clinician Provided Cytology Information No. of containers..01 Other (Miscellaneous) Source: PLEURAL FLUID DIAGNOSIS: 02 PLEURAL FLUID NEGATIVE FOR MALIGNANT CELLS. MESOTHELIAL CELLS ARE PRESENT. THIS INTERPRETATION INCLUDES EVALUATION OF A CELL BLOCK. Pathologist ICD10: 02 J90, I51.7 Signed out by: Mildred Mercado MD, Pathologist NPI- [id number] Performed by: Luis Vargas, [employer] Operator ([facility]) Gross description: 01 30ML, REDDISH-ORANGE, CLOUDY /LCS FLAG LEGEND: L-Low Normal,H-High Normal,LL-Alert Low,HH-Alert High <-Panic Low,>-Panic High,A-Abnormal,AA-Critical Abnormal Performed at: [address] [place] [address] Ar Olivera MD, [address] [address] Mildred Mercado MD, Specimen Comment: A courtesy copy of this report has been sent to Specimen Comment: [phone], . Specimen Comment: Report sent to / DR ALEGER Specimen Comment: A duplicate report has been generated due to demographic updates. Performed at: [address], [place], [place] [id number] MD Ar Olivera MD Phone: [phone]
[2018-10-10 13:05] LABS: DIRECT BILIRUBIN 0.1 mg/dL (<0.1-0.3); PHOSPHORUS 4.7 mg/dL (2.5-4.9); TOTAL BILIRUBIN 0.3 mg/dL (<0.1-1.0); TOTAL PROTEIN 6.5 g/dL (6.4-8.2)
--- NOTE | 2018-10-10 14:06 | NUR ---
FAXED CLINICAL UPDATE TO [facility] SPOKE WITH THIEN IN ADM. SHE RECEIVED UPDATE. DCP TO FOLLOW.
--- NOTE | 2018-10-10 18:43 | NUR ---
PATIENT ASSESSMENTS AND VITAL SIGNS DOCUMENTED. SHE IS TO HAVE TPN STARTED TONIGHT. TUBE FEEDINGS ON HOLD PER PHYSICIAN ORDER. NO BOWEL MOVEMENT TODAY. PRECEDEX HAS BEEN TITRATED FOR PATIENTS RESTLESSNESS AND AGGITATION. SHE IS ABLE TO SCOOT HERSELF TO THE END OF THE BED AND GET SIDEWAYS IN THE BED WITH LEGS OFF THE BED. SHE DOES NOT FOLLOW COMMANDS. SHE WILL ANSWER SIMPLE QUESTIONS INTERMITTENTLY, HOWEVER DOES NOT COMPLETE THOUGHTS. PLAN OF CARE IS TO CONTINUE TO MONITOR PATIENT NEURO STATUS, ASSESSMENTS, TITRATE PRECEDEX FOR OPTIMAL BREATHING CAPABILITIES.
[2018-10-11] VITALS (60 sets, daily range): BP systolic 85–155; BP diastolic 49–99
--- NOTE | 2018-10-11 05:22 | NUR ---
PATIENT IS SLOWLY PROGRESSING IN HER CARE PLAN. VITAL SIGNS STABLE WITH NURSE NOT PERCEIVING ANY PAIN OR NAUSEA ON BEHALF OF PATIENT. ORIENTED TO SELF WHEN AWAKE, NURSE HAS TITRATED PRECEDEX FOR EFFECT. BREATHING STABLE ON BIPAP EVIDENCED BY READINGS ON CONTINUOUS SATURATION MONITOR. NO BOWEL MOVEMENT DURING SHIFT. CONTINUE PLAN OF CARE.
[2018-10-11 06:09] LABS: HEMATOCRIT 25.8 % (37.0-47.0); HEMOGLOBIN 8.5 gm/dL (12.0-15.0); MCH 29.2 pg (26.0-34.0); MCHC 32.9 g/dL (28.0-37.0); MCV 88.8 fL (80.0-100.0); RBC 2.9 mil/uL (4.20-5.00); RDW 17.5 % (10.5-14.5); WBC 9.6 thou/uL (4.0-11.0)
[2018-10-11 06:32] LABS: ALBUMIN 2.1 g/dL (3.4-5.0); CALCIUM 8.8 mg/dL (8.5-10.1); MAGNESIUM 2.2 mg/dL (1.8-2.4); PHOSPHORUS 3.2 mg/dL (2.5-4.9); POTASSIUM 4.1 mmol/L (3.5-5.1); TOTAL BILIRUBIN 0.3 mg/dL (<0.1-1.0); TOTAL PROTEIN 6.5 g/dL (6.4-8.2)
--- NOTE | 2018-10-11 15:22 | NUR ---
FOLLOWING OFR DC PLANNING. PER NIKHIL MARIE AT [facility] PA OFFICE, OK FOR TRANSFER TO ANY LOCAL ACCEPTING LTAC. REFERRAL TO [facility] BUT DECLINED NO PSYCH AT FACILITY. REFERRAL FAXED TO [facility]. UPDATE TO NIKHIL MARIE 10/10/18.
--- NOTE | 2018-10-11 19:30 | NUR ---
SHIFT SUMMARY: SEE ASSESSMENTS FOR DETAILS. FENTANYL 50 MCG IV GIVEN X 1 FOR ABDOMINAL DISCOMFORT WITH PT RESTING QUIETLY AFTER ADMINISTRATION. PT GENERALLY RESTLESS IN BED, REPOSITIONING SELF, PULLING AT TUBES/WIRES ESPECIALLY BA TUBING OFTEN UNINTENTIONALLY, PRECEDEX 0.8-1.2 MCG/KG/HR FOR SEDATION. SR. PT ON 2L/NC THEN AFTER FENTANYL ADMINISTRATION, PT HAVING EPISODES OF SLEEP APNEA SO REPLACED ON BIPAP. STRICTLY NPO RELATED TO ILEUS. DOBHOFF IN PLACE. BA WITH BLOOD TINGED URINE FROM HER PULLING AT TUBING. BA IRRIGATED AND PLACEMENT CONFIRMED. PT NOT PROGRESSING BASED ON ILEUS.
[2018-10-12] VITALS (20 sets, daily range): BP systolic 109–166; BP diastolic 59–119
[2018-10-12 05:13] LABS: CALCIUM 8.9 mg/dL (8.5-10.1); CREATININE 0.9 mg/dL (0.6-1.0); MAGNESIUM 2.1 mg/dL (1.8-2.4); PHOSPHORUS 3.5 mg/dL (2.5-4.9); POTASSIUM 4.3 mmol/L (3.5-5.1)
--- NOTE | 2018-10-12 07:24 | NUR ---
ASSUMED CARE AT 1900. PT CONFUSED AND AGITATED. UNABLE TO MAKE NEEDS KNOWN. FENYANYL, HALDOL, ATIVAN UTILIZED FOR CALM. VITAL SIGNS STABLE. GAVE PATIENT A BATH. 500 CC URINE OUTPUT BLOOD TINGED DUE TO FREQUENT PULLING ON CATHETER PREVIOUSLY. PRECEDEX MAXED AT 1.4 MCG/KG/HR. HYPOACTIVE BOWEL SOUNDS. NO FEVER. WILL CONTINUE TO FOLLOW PLAN OF CARE.
--- NOTE | 2018-10-12 18:06 | NUR ---
ASSSESSMENTS CHARTED - PT HAS BEEN SEDATED THROUGHOUT THE SHIFT ON PRESIDEX 1.4 MCS/KG/MIN - PT HAS BECOME RESTLESS AT TIMES THROUGHOUT THE SHIFT - MOVES LEGS AROOUND IN THE BED - GRIMACING - GIVEN FENTANYL X 3 WITH GOOD EFFECT - PT BECAME MUCH QUIETER IN THE BED AND APPEARED COMFROTABLE. PT HAS BEEN TURNED FROM SIDE TO SIDE Q 2-3 HOURS - PT DOES MOVE IN BED AND PLACE HERSELF ON HER BACK DESPITE WEDGES/PILLOW. PT HAS REMIANED ON THE BIPAP THROUGHOUT THE SHIFT - RESPS LABOURED AND ABDOMINAL BREATHING. NO STOOLS THIS SHIFT - GIVEN REGLAN. ACCUCHECKS COVERED PER SSI. PT HAS REMAINED RESTRAINED SECONDARY TO LINES/ TUBES AND PATIENT RESTLESSNESS. PT TO HAVE CHEST AND ABDO XRAY IN THE AM - CLOZAPINE GIVEN VIA DOBHOFF ORDERED BY DOCTOR ALL OTHER MEDS TO BE HELD AT THIS TIME. APPEARS TO BE RESTSING COMFORTABLY AT THE PRESENT TIME.
[2018-10-13] VITALS (24 sets, daily range): BP systolic 98–168; BP diastolic 47–123
[2018-10-13 04:27] LABS: HEMATOCRIT 24.7 % (37.0-47.0); HEMOGLOBIN 8.3 gm/dL (12.0-15.0); MCH 29.9 pg (26.0-34.0); MCHC 33.5 g/dL (28.0-37.0); MCV 89.2 fL (80.0-100.0); RBC 2.77 mil/uL (4.20-5.00); RDW 18.4 % (10.5-14.5); WBC 9.6 thou/uL (4.0-11.0)
[2018-10-13 04:45] LABS: CREATININE 0.8 mg/dL (0.6-1.0); MAGNESIUM 1.9 mg/dL (1.8-2.4); PHOSPHORUS 2.7 mg/dL (2.5-4.9); POTASSIUM 4.1 mmol/L (3.5-5.1)
--- NOTE | 2018-10-13 06:22 | NUR ---
DURING ASSESSMENT FOR A WOUND ON PT LEFT UPPER THIGH. TOOK PICTURE AND PUT INTERVENTION IN . AT 2300 PT BECAME RESTLESS, GAVE 50MCG FENTANYL AND REPLACED PRECEDEX BAG. PT STILL IN RESTLESS STATE FOLLOWED WITH 3MG OF HALIDOL. AT 0224 PT STILL NOT RESTING COMFORTABLY, GAVE 1MG LORAZEPAM. PT FINALLY GETTING GOOD REST. HOURLY ROUNDING. URINE OUTPUT IS GOOD. VSS, Q2 TURNS, AND PT STILL ON BIPAP. RT TRIED TO TAKE PT OFF BIPAP AT 0300, PT DID NOT TOLERATE PROCEDURE WELL. PT HAS HAD TPN RUNNING AT 75ML/HR. PT NPO LESS ONE MED THAT IS NECESSARY WHICH IS CRUSHED AND GIVEN VIA MARY.
--- NOTE | 2018-10-13 15:29 | NUR ---
PT DOES NOT FOLLOW COMMANDS. LUNGGS ARE COARSE REMAINS ON BIPAP AT FI02 OF 35%. WITH OXYGEN SATURATION 99 PERCENT. SINUS RHYTHM ON THE FILM MOUNTER. REMAINS ON PRECEDIX FOR SEDATION. REST AT TIMES. AND THEN MOVES HER UPPER BODY IN THE BED. RESTRATINTS BILATERAL. TPN INFUSING. 1 PLUS EDEMA NOTED. DOBHOFF TUBE IN PLACE. RESPOSITION AND TURN Q 2 HOURS WILL CONTINUE TO ASSESS AND MONITOR PER NURSING AT THIS TIME.
[2018-10-14] VITALS (28 sets, daily range): BP systolic 99–169; BP diastolic 51–111
[2018-10-14 05:31] LABS: HEMATOCRIT 27.4 % (37.0-47.0); HEMOGLOBIN 8.8 gm/dL (12.0-15.0); MCH 28.7 pg (26.0-34.0); MCV 89.7 fL (80.0-100.0); RBC 3.05 mil/uL (4.20-5.00); RDW 19.5 % (10.5-14.5); WBC 9.4 thou/uL (4.0-11.0)
[2018-10-14 05:42] LABS: CALCIUM 8.9 mg/dL (8.5-10.1); CREATININE 0.8 mg/dL (0.6-1.0); MAGNESIUM 1.7 mg/dL (1.8-2.4); PHOSPHORUS 2.9 mg/dL (2.5-4.9); POTASSIUM 4.3 mmol/L (3.5-5.1)
--- NOTE | 2018-10-14 06:56 | NUR ---
ASSUMED CARE @ 1900 10/13/18, PT ASSESSMENTS AND VSS COMPLETE PER ICU PROTOCOL. PT ABLE TO FOLLOW COMMANDS ONLY IN THE INITIAL ASSESSMENT, DID NOT FOLLOW COMMANDS ON OTHER ASSESSMENTS. PT ON PRECEDEX GTT IN PLACE, ATIVAN PRN USED DURING SHIFT. PT IN SR ON THE MONITOR, PT AFEBRILE. LEFT HAND AND LEG IS COLDER THAN RIGHT HAND AND LEG, BUT PULSES STILL PRESENT ON ALL LIMBS. PT ON BIPAP THROUGH OUT NIGHT, SAME SETTINGS. TPN IN PLACE, Q6H ACCUCHECKS, BS COVERED WITH INSULIN SLIDING SCALE AT BOTH CHECKS. BA IN PLACE, GOP NOTED. PT IN RESTRAINTS, FALL PRCAUTIONS IN PLACE. BATH GIVEN DURING THE SHIFT, NO COMPLICATIONS NOTED. PLAN OF CARE- CONT TO MONITOR.
--- NOTE | 2018-10-14 15:23 | NUR ---
PT IS ON SEDATION AND BIPAP. LUNGS ARE COARSE OXYGEN SATURATION IS 99 PERCNET. ABDOMEN IS ROUND AND SOFT. NO BOWEL MOVEMENT NOTED. SINUS RHYTHM ON THE DIRECTOR ORGANIZATIONAL. BA TO DD WITH YELLOW URINE PRESENT. BATH DONE TODAY. ATIVAN GIVEN WITH RESTLESS ACTIVITY NOTED AND PRECEDIX. SCDS ON BILATERAL. TPN INFUSING ORDERED. PT DOES NOT FOLLOW COMMANDS WITH SEDATION VACATION. WILL CONTINUE TO MONITOR AND ASSESS PT CARE PLAN AT THIS TIME.
[2018-10-15] VITALS (24 sets, daily range): BP systolic 65–159; BP diastolic 41–81
[2018-10-15 05:26] LABS: BE(vivo) 14.1 mmol/L (-2 to +3); HCO3 40.2 mmol/L (22.0-26.0); PCO2 59.9 mmHg (35.0-45.0); pH 7.445 (7.360-7.450); sO2 94.4 % (92.0-98.0)
[2018-10-15 05:42] LABS: CALCIUM 9.4 mg/dL (8.5-10.1); CREATININE 0.8 mg/dL (0.6-1.0); MAGNESIUM 1.8 mg/dL (1.8-2.4); PHOSPHORUS 2.6 mg/dL (2.5-4.9)
--- NOTE | 2018-10-15 06:34 | NUR ---
ASSUMED CARE @ 1900 10/14/18, PT ASSESSMENTS AND VSS COMPLETE PER ICU PROTOCOL. PT ABLE TO ANSWER TO NAME BUT, NOT FOLLOWING COMMANDS, PT NOT MAKING COHERENT SENTENCES , BASELINE UNKNOWN, PRECEDEX GTT STILL IN PLACE, FENTANYL AND ATIVAN GIVEN DURING THE SHIFT. PT IN SR-ST DURING THE SHIFT, AFEBRILE, BP STABLE. PT TAKEN OFF THE BIPAP DURING THE SHIFT PUT ON NC, SATS IN THE HIGH 90'S. PT PULLED OUT DOBHOB DURING THE SHIFT, BS COVERED WITH INSULIN DURING THE SHIFT, TPN IN PLACE. BA IN PLACE, GOP NOTED, FALL PRECAUTIONS IN PLACE, RESTRAINTS IN PLACE, PLAN OF CARE- CONT TO MONITOR.
--- NOTE | 2018-10-15 11:20 | NUR ---
SPOKE C GI REGARDING PT PULLING OUT DOBHOFF, REQUEST SPEECH EVAL PT AND REPLACE IF FAILS OR UNABLE TO SCREEN.
--- NOTE | 2018-10-15 12:06 | HC ---
[facility] [place] [address] CONSULTATION Name: TIM BAZZI Room #: [facility] IN M.R.#: [id number] Admission: 10/03/18 ������������������ Attend Phys: Huan Oliveira MD Discharge: ������������������ Date of : 60 Report #: [id number] THIS REPORT FOR: //name// CC: Orlando Oliveira DATE OF SERVICE: 10/07/2018 NEPHROLOGY CONSULTATION REASON FOR CONSULTATION: Elevating creatinine, decreased urine output. HISTORY OF PRESENT ILLNESS: This patient resides in a nursing facility. She has paranoid schizophrenia, diabetes, apparently chronically ill. She was recently hospitalized at [facility] with pneumonia, respiratory difficulties, developed worsening shortness of air at her facility, came to the Emergency Room and was intubated in the Emergency Room, subsequently extubated 2 days ago. She is sedated currently and not able to give any reasonable history. She has been hypotensive, currently on Levophed and this did not respond to multiple fluid boluses and strongly positive fluid balances over the last several days. Her serum creatinine has risen from 1.1 to 1.5 over the last 48 hours. PAST MEDICAL HISTORY: She has a prior history of Hodgkin's lymphoma, I believe treated and this is I believe remote. She had the recent pneumonia episode at [facility], history of diabetes mellitus, history of paranoid schizophrenia, and history of hypertension. MEDICATIONS: At the facility include gabapentin 400 mg t.i.d., metformin 1000 mg b.i.d., Depakote 1000 mg at bedtime, atorvastatin 20 mg daily, Celexa 20 mg daily, levothyroxine 125 mcg daily, Ativan 0.5 mg daily, Haldol 100 mg long acting IM every 4 weeks, insulin, aspirin 81 mg daily, Coreg 6.25 mg b.i.d., lisinopril 2.5 mg daily, oxybutynin 5 mg daily, Ultram 50 mg t.i.d. p.r.n., glipizide 5 mg daily, ascorbic acid 1000 mg b.i.d., Cogentin 0.5 mg daily, amlodipine 10 mg daily, iron, and clozapine . FAMILY HISTORY: Unobtainable. SOCIAL HISTORY: Unobtainable. There is some record for being a smoker. REVIEW OF SYSTEMS: Unobtainable. PHYSICAL EXAMINATION: GENERAL: The patient is seen in the ICU. She is sedated. D[place] [address] CONSULTATION Name: TIM BAZZI Room #: [address] [place] [address].#: [id number] Admission: 10/03/18 ������������������ Attend Phys: Huan Oliveira MD Discharge: ������������������ Date of : 60 Report #: [id number] SKIN: No skin lesions. SKELETAL: Somewhat overweight. HEENT: Extraocular movements cannot be tested. Dobbhoff in place. Mucous membranes seem moist. NECK: Supple. CHEST: Shows coarse breath sounds, decreased at the bases. HEART: Regular. ABDOMEN: Soft and nontender. EXTREMITIES: Show trace peripheral edema dependently. LABORATORY AND DIAGNOSTIC DATA: Urinalysis was concentrated but completely benign, was done at the time of admission. CBC remarkable for anemia with hemoglobin 8.5 down to 7.6, white count is mildly elevated around 13,000. She did have 2 bands on the one differential done at the time of admission and platelets of 525. INR was 1.3. Currently, sodium 140, potassium 4.7, chloride 106, bicarbonate 23, creatinine 1.5, BUN 37, magnesium at 3.1. ASSESSMENT: 1. Acute kidney injury. She had a dye study with contrast and urine output is sluggish, but she is also hypotensive. Certainly, there could be septic physiology. Because of the large pericardial effusion I would certainly put some consideration in to tamponade type physiology with low blood pressures. She has been given appropriate IV fluid. I suspect complete diagnostic utility might involve a right heart cath ruling out tamponade and investigating for the systemic vascular resistance to determine whether this is more cardiac or septic in origin in terms of her hypotension. 2. Pericardial and pleural effusions. The pleural effusion was tapped, transudative appearance. 3. Acute respiratory failure, intubated, now extubated. 4. Decreased left ventricular ejection fraction, this is at 40-45%, unknown etiology. 5. Remote history of Hodgkin's lymphoma. 6. Diabetes mellitus. 7. Polypharmacy. She is on an incredible array of medications at her facility and certainly this needs to be addressed as best we can. 8. History of paranoid schizophrenia. ��������������������������������������������� <ELECTRONICALLY SIGNED> ���������������������������������������� By: Geronimo Díaz MD ��������������������������������������������� 10/15/18 1206 0923 1416 Geronimo Díaz MD /nt
--- NOTE | 2018-10-15 12:48 | NUR ---
FAXED CLINICAL UPDATE TO [facility] SPOKE WITH STEPHANE IN ADM. SHE RECEIVED UPDATE. DCP TO FOLLOW.
--- NOTE | 2018-10-15 13:35 | NUR ---
VASCULAR ACCESS ROUNDS. THIS PATIENT CONTINUES TO BE IN ICU, NPO AND ON TPN- CENTRAL LINE CONTINUES TO BE APPROPRIATE AT THIS TIME
--- NOTE | 2018-10-15 18:22 | NUR ---
ASSUMED CARE OF PT AT 0700. PT ON PRECEDEX GTT, BILAT SOFT WRIST RESTRAINTS INTACT. PT VERY RESTLESS T/O THE DAY. PRN ATIVAN GIVEN X1 WHEN PT WAS THROWING LEGS OUT OF BED. PRECEDEX TITRATED DOWN, PT WOULD OPEN EYES AND FOLLOW COMMANDS BUT REMAINED VERY RESTLESS. ST WAS ABLE TO PERFORM BEDSIDE SWALLOW EVAL. ORDER RECEIVED FOR HONEY THICKENED LIQUIDS AND PUREE DIET. PT TOOK APPX 10% OF SUPPER. PT/OT EVAL ORDERED.
[2018-10-16] VITALS (15 sets, daily range): BP systolic 92–149; BP diastolic 46–82
[2018-10-16 03:18] LABS: CALCIUM 8.9 mg/dL (8.5-10.1); CREATININE 0.9 mg/dL (0.6-1.0); TOTAL BILIRUBIN 0.2 mg/dL (<0.1-1.0); TOTAL PROTEIN 6.2 g/dL (6.4-8.2)
[2018-10-16 03:22] LABS: HEMATOCRIT 29.8 % (37.0-47.0); MCH 30.2 pg (26.0-34.0); MCHC 33.6 g/dL (28.0-37.0); RBC 3.31 mil/uL (4.20-5.00); RDW 20.1 % (10.5-14.5); WBC 9.8 thou/uL (4.0-11.0)
--- NOTE | 2018-10-16 03:39 | NUR ---
ASSUMED PT CARE AT 1900. VSS. PT WAS DROWSY/SLEEPING. PT RESTED WELL FOR MOST OF THE NIGHT, AT SOME POINT SHE STATED THAT SHE FELT BETTER TODAY. PRECEDEX STOPPED FOR A BRIEF MOMENT WHILE PILLS WERE CRUSHED AND ADMINISTERED TO PT IN HONEY THICK CONSISTENCY LIQUID. PT TOLERATED CRUSHED PILLS WELL. GOOD URINE OUTPUT OVERNIGHT, PT SEEMED TO BE IN NO APPARENT DISTRESS. SHE TOLERATED 2L NC OVER NIGHT WITH 02 SAT AT 99%. WILL CONTINUE TO MONITOR PER POC.
--- NOTE | 2018-10-16 09:53 | NUR ---
VASCULAR ACCESS TEAM ROUNDING,PT CONTINUES ON MULTIPLE MEDS IVF X4, CENTRAL LINE APPROPRIATE.
--- NOTE | 2018-10-16 12:53 | NUR ---
FOLLOWING FOR DC PLANNING. LAST UPDATE TO NIKHIL MARIE AT PA OFFICE 10/15/18. UPDATED TODAY PT READY FOR TRANSITION TO [facility] AND NIKHIL ROBBINS PA OFFICE CONSENTS FOR DC TO [facility]. CHART COPIED. DC ORDERS FAXED TO [facility]. DC GAS MAIN FITTER TO SET UP AMBULANCE GRADUATING MACHINE OPERATOR BETWEEN 3-4 PM PER [facility]S REQUEST. [facility] ADMISSIONS UPDATED PER DC GAS MAIN FITTER. NIKHIL MARIE'S CONTACT # PROVIDED TO [facility] CASE MANAGEMENT. PT TRANSPORTING WITH TPN AND PRECEDEX INFUSING PER INF[facility]ION [facility] AND WILL [place] PLANNING AIDE PUMPS BACK TO [facility].
[2018-10-16] MEDS ORDERED: UNASYN 3 GM VIAL3 G1 IVPB (14:42)
[2018-10-16] MEDS ORDERED: TORSEMIDE20 MG PO (14:44)
[2018-10-16] MEDS ORDERED: SOLU-MEDRO40 MG/1 M1 IV PUSH (14:45)
[2018-10-16] MEDS ORDERED: TPN ELECTROLYTE20 ML IV (14:47)
[2018-10-16] MEDS ORDERED: PRECEDEX IV (14:48)
--- NOTE | 2018-10-16 15:10 | NUR ---
PT. DISCHARGING TODAY TO [facility] FAXED DC ORDERS/SUMMARY TO FACILITY SPOKE WITH STEPHANE IN ADM. SHE RECEIVED DC ORDERS AND NOTIFIED OF TIME OF TRANSPORT.
--- NOTE | 2018-10-16 15:35 | NUR ---
PT DISCHARGING WITH TPN AND PRECEDEX INFUSING PER INFUSION PUMP. [place]OADCAST TECHNICIAN WILL RETURN INFUSION PUMPS TONIGHT WITH TRACKING NUMBER [id number].
--- NOTE | 2018-10-17 09:44 | NUR ---
DCP NOTIFIED [facility] MSG WITH THIEN IN ADM. THAT PT. DISCHARGED TO [facility].
== END 2018-10-16 15:45 | DRG 208 ==
LOC: ER 13:53 → EROBS 16:41 → ICU 16:41
PROVIDERS: Emergency Medicine; Hospitalist; Internal Medicine; Internal Medicine Nephrology; Internal Medicine Pulmonary Disease; Nurse Practitioner Acute Care; Pediatrics; ADMIT Internal Medicine
DX: J96.01 Acute respiratory failure with hypoxia (principal); I50.23 Acute on chronic systolic (congestive) heart failure; E43 Unspecified severe protein-calorie malnutrition; J15.3 Pneumonia due to streptococcus, group B; G92 Toxic encephalopathy; J69.0 Pneumonitis due to inhalation of food and vomit; I31.9 Disease of pericardium, unspecified; J90 Pleural effusion, not elsewhere classified; C81.90 Hodgkin lymphoma, unspecified, unspecified site; N17.9 Acute kidney failure, unspecified; F20.0 Paranoid schizophrenia; D62 Acute posthemorrhagic anemia; K56.7 Ileus, unspecified; E03.9 Hypothyroidism, unspecified; E78.5 Hyperlipidemia, unspecified; E11.9 Type 2 diabetes mellitus without complications; D50.9 Iron deficiency anemia, unspecified; J44.9 Chronic obstructive pulmonary disease, unspecified; I34.0 Nonrheumatic mitral (valve) insufficiency; I11.0 Hypertensive heart disease with heart failure; I35.1 Nonrheumatic aortic (valve) insufficiency; F17.210 Nicotine dependence, cigarettes, uncomplicated; R41.0 Disorientation, unspecified; I95.9 Hypotension, unspecified; D63.8 Anemia in other chronic diseases classified elsewhere; R13.10 Dysphagia, unspecified; K59.00 Constipation, unspecified; R14.0 Abdominal distension (gaseous); I25.5 Ischemic cardiomyopathy; G40.909 Epilepsy, unspecified, not intractable, without status epilepticus; Z68.23 Body mass index [BMI] 23.0-23.9, adult; Z23 Encounter for immunization; Z79.899 Other long term (current) drug therapy
CPT/HCPCS: 10078

== ENCOUNTER 2018-11-29 09:38 | Emergency (ER) | payer OTHER ==
[~2018-11-29] VITALS: Ht 167.6 cm; Wt 71.6 kg
[~2018-11-29 09:38] MED LIST changes: +ASPIR 8181 MG PO; +COREG6.25 MG PO; +GLUCOTROL5 MG PO; +HUMALOG100 UNIT/1 SUBQ; +LISINOPRIL2.5 MG PO; +OXYBUTYNIN 5 MG5 M2 PO; +PRECEDEX IV; +SOLU-MEDRO40 MG/1 M1 IV PUSH; +TORSEMIDE20 MG PO; +TPN ELECTROLYTE20 ML IV; +TRAMADOL 50 MG50 MG PO; +UNASYN 3 GM VIAL3 G1 IVPB
[2018-11-29 11:34] LABS: ABSOLUTE NEUTROPHILS 3.1 thou/uL (1.4-8.2); BASOPHILS 1.4 % (0.0-2.0); EOSINOPHILS 3.1 % (0.0-3.0); HEMATOCRIT 37.6 % (37.0-47.0); HEMOGLOBIN 12.2 gm/dL (12.0-15.0); LYMPHOCYTES 33.7 % (24.0-44.0); MCH 29.2 pg (26.0-34.0); MCHC 32.3 g/dL (28.0-37.0); MCV 90.2 fL (80.0-100.0); MONOCYTES 9.7 % (1.0-8.0); PLATELET COUNT 318 thou/uL (150-400); POLYS 52.1 % (36.0-66.0); RBC 4.17 mil/uL (4.20-5.00); RDW 17.8 % (10.5-14.5); URINE BILIRUBIN NEGATIVE (Negative); URINE BLOOD NEGATIVE (Negative); URINE CLARITY CLEAR; URINE COLOR YELLOW; URINE GLUCOSE-RANDOM* NEGATIVE (Negative); URINE KETONES NEGATIVE (Negative); URINE NITRITE-REFLEX NEGATIVE (Negative); URINE PROTEIN (DIPSTICK) NEGATIVE (Negative); URINE SPECIFIC GRAVITY <= 1.005 (1.005-1.035); URINE UROBILINOGEN 0.2 E.U./dl (0.2-1.0)
[2018-11-29 11:35] LABS: URINE LEUKOCYTES-REFLEX 2+ (Negative)
[2018-11-29 11:41] LABS: AMP/METHAMP Negative (Negative); BARBITURATES Negative (Negative); BENZODIAZEPINES Negative (Negative); COCAINE Negative (Negative); METHADONE Negative (Negative); OPIATES Negative (Negative); PCP Negative (Negative)
[2018-11-29 11:43] LABS: SQUAMOUS 4-10 Moderate /LPF (0-3)
[2018-11-29 11:44] LABS: BACTERIA-REFLEX 1-9 Few /HPF (None Seen); CASTS None Seen /LPF (None Seen); CRYSTALS None Seen /LPF (None Seen); URINE RBC None Seen /HPF (0-2); URINE WBC-REFLEX 6-15 Few /HPF (0-5)
[2018-11-29 11:45] LABS: ANION GAP 6 mmol/L (7-16); BUN 10 mg/dL (7-18); CHLORIDE 106 mmol/L (98-107); CO2 31 mmol/L (21-32); GLUCOSE 110 mg/dL (74-106); POTASSIUM 3.8 mmol/L (3.5-5.1); SODIUM 143 mmol/L (136-145)
[2018-11-29 11:47] LABS: CALCIUM 9.6 mg/dL (8.5-10.1)
[2018-11-29 11:54] LABS: TROPONIN-I <0.06 ng/mL (<0.06)
[2018-11-29 13:10] LABS: URINE BILIRUBIN NEGATIVE (Negative); URINE BLOOD NEGATIVE (Negative); URINE CLARITY CLEAR; URINE COLOR YELLOW; URINE GLUCOSE-RANDOM* NEGATIVE (Negative); URINE KETONES NEGATIVE (Negative); URINE LEUKOCYTES-REFLEX NEGATIVE (Negative); URINE NITRITE-REFLEX NEGATIVE (Negative); URINE PROTEIN (DIPSTICK) TRACE (Negative); URINE SPECIFIC GRAVITY <= 1.005 (1.005-1.035)
[2018-11-29 15:09] VITALS: BP 132/86
--- NOTE | 2018-11-29 17:04 | EKG ---
[place] [address] [address] [facility] [employer] 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: as : 1960 Requested By: Terence Rivera Order Number: [id number] MD: Gooy Loo Measurements Intervals [place]son Rate: 97 P: 78 IL: 220 QRS: -57 QRSD: 143 T: 196 QT: 415 QTc: 527 Interpretive Statements Sinus rhythm Prolonged IL interval Left atrial enlargement RBBB and LAFB LVH with secondary repolarization abnormality Compared to ECG 10/08/2018 07:32:04 Electronically Signed On 11-29-2018 17:04:32 CDT by Goyo Loo [email or web address] ��������������������������������������������� <ELECTRONICALLY SIGNED> ���������������������������������������� By: Goyo Loo MD ��������������������������������������������� 11/29/18 1704 1054 105 Goyo Loo MD /NIESHA
== END 2018-11-29 15:45 | disposition home or self-care (01) ==
LOC: ER 09:38
PROVIDERS: Emergency Medicine
DX: G47.10 Hypersomnia, unspecified (principal); E03.9 Hypothyroidism, unspecified; E78.5 Hyperlipidemia, unspecified; F20.0 Paranoid schizophrenia; C81.90 Hodgkin lymphoma, unspecified, unspecified site; E11.9 Type 2 diabetes mellitus without complications; I10 Essential (primary) hypertension; F17.210 Nicotine dependence, cigarettes, uncomplicated; Z86.2 Personal history of diseases of the blood and blood-forming organs and certain disorders involving the immune mechanism; Z79.4 Long term (current) use of insulin

== ENCOUNTER 2019-02-05 20:54 | Inpatient (IN) | payer OTHER ==
[~2019-02-05] VITALS: Ht 162.6 cm; Wt 64.7 kg
[2019-02-05 20:56] VITALS: BP 95/80
[2019-02-05 21:05] LABS: BE(vivo) 1.7 mmol/L (-2 to +3); HCO3 26.6 mmol/L (22.0-26.0); PCO2 43.2 mmHg (35.0-45.0); PO2 56.5 mmHg (80.0-100.0); pH 7.407 (7.360-7.450); sO2 89.5 % (92.0-98.0)
[2019-02-05 21:48] LABS: HEMATOCRIT 29.7 % (37.0-47.0); HEMOGLOBIN 9.6 gm/dL (12.0-15.0); MCH 28.2 pg (26.0-34.0); MCHC 32.4 g/dL (28.0-37.0); RBC 3.42 mil/uL (4.20-5.00); RDW 15.5 % (10.5-14.5); WBC 9.6 thou/uL (4.0-11.0)
[2019-02-05 21:56] LABS: ANION GAP 9 mmol/L (7-16); BUN 9 mg/dL (7-18); CALCIUM 8.5 mg/dL (8.5-10.1); CHLORIDE 101 mmol/L (98-107); CO2 29 mmol/L (21-32); CREATININE 0.9 mg/dL (0.6-1.0); GLUCOSE 140 mg/dL (74-106); POTASSIUM 3.8 mmol/L (3.5-5.1); SODIUM 139 mmol/L (136-145)
[2019-02-05 22:06] LABS: TROPONIN-I <0.06 ng/mL (<0.06)
--- NOTE | 2019-02-05 22:58 | NUR ---
PATIENT TO CT AT THIS TIME
[2019-02-06 02:00] VITALS: BP 108/66
--- NOTE | 2019-02-06 02:16 | NUR ---
REPORT GIVEN TO INPATIENT RNPADMAJA
[2019-02-06 02:37] VITALS: BP 107/63
[2019-02-06 08:17] VITALS: BP 127/72
--- NOTE | 2019-02-06 08:33 | EKG ---
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 : 1960 Requested By: Amadou Hernandez Order Number: [id number] MD: Goyo Loo Measurements Intervals Erin Rate: 112 P: SC: QRS: -41 QRSD: 152 T: 147 QT: 366 QTc: 500 Interpretive Statements Sinus tachycardia RBBB and LAFB LVH with secondary repolarization abnormality Compared to ECG 11/29/2018 10:54:57 Electronically Signed On 02-06-2019 8:33:06 CDT by Goyo Loo [email or web address] ��������������������������������������������� <ELECTRONICALLY SIGNED> ���������������������������������������� By: Goyo Loo MD ��������������������������������������������� 02/06/19 0833 10 10 Goyo Loo MD /NIESHA
[2019-02-06 10:45] LABS: CLARITY TURBID; COLOR DARK RED; SOURCE LEFT CHEST; TOTAL VOLUME 25 mL
[2019-02-06 11:08] LABS: BF NUCLEATED CELLS 434; BF RBC 1218956
[2019-02-06 11:19] LABS: BF MACROPHAGE 9; BF NEUTROPHILS 4
[2019-02-06 12:06] VITALS: BP 98/51
--- NOTE | 2019-02-06 13:55 | NUR ---
patient admits from [facility] with hypoxia. Patient has [place] guardian [phone] Saud Ocasio who gave consent to treat and aware patient at [facility]. Updated guardian and [place]. Plan return once stable. [email or web address] following.
[2019-02-06 16:22] VITALS: BP 106/56
--- NOTE | 2019-02-06 16:46 | NUR ---
ASSESSMENTS CHARTED. MEDS PER SEP. TOLERATING DIET AND FLUIDS WITH NO C/O OF NAUSEA OR PAIN. PT TO IR FOR THOROCENTESIS THIS AM. 400 CC FLUID FROM LEFT LUNG REMOVED. SPECIMENS TO LAB. PT NO SOB POST PROCEDURE. PT UP WITH STAND BY ASSIST AND MAY BE UNSTEADY ON HER FEET. PT IS IMPULSIVE. FORGETS TO CALL. NO COMPLAINTS AT THE PRESENT TIME. APPEARS TO BE RESTING COMFORTABLY.
[2019-02-06 19:55] VITALS: BP 101/72
[2019-02-07 04:45] VITALS: BP 90/60
--- NOTE | 2019-02-07 05:39 | NUR ---
PT ALERT AND ORIENTED. DENIES PAIN/. VITALS STABLE. SOA , ON 02 1L WITH SCHEDULED NEBULIZERS. COURSE, WHEEZES ALL LUNG SIBLEY. NO FURTHER C/O. WILL CONTINUE TO FOLLOW PLAN OF CARE.
[2019-02-07 07:25] VITALS: BP 77/42
[2019-02-07 08:05] VITALS: BP 96/59
[2019-02-07 09:13] LABS: SOURCE CHEST
--- NOTE | 2019-02-07 15:12 | NUR ---
Discharge Planning: iqra called bertha Tinsley/admissions at [facility] a voicemail that patient to dc tomorrow from hospital and left Alvina a callback number if she has quesitons.
--- NOTE | 2019-02-07 16:43 | NUR ---
ASSESSMENT CHARTED. PT NAILA DIET AND FLUIDS. MEDS PER MAR - NO CO'S OF PAIN OR NASUEA. PATIENT WITH MOIST COUGH STATES SHE IS NOT COUGHING ANYTHING UP. PT HAS BEEN UP IN ROOM, NOT WANTED TO WALK SO FAR THIS SHIFT, WILL ATTEMPT AGAIN TO GET PATIENT TO WALK. PT WITH MONITOR D/C'S NOW M/S STATUS. NO CO'S AT THE PRESENT TIME - STATES SHE IS COMFORTABLE.
[2019-02-07 19:49] VITALS: BP 128/59
--- NOTE | 2019-02-08 03:45 | NUR ---
Pt rested well over night. No c/o nausea vomiting. Requested a lunch box. Pt almost chocked on her food due to large bit and eating fast. Pt encourage to ensure she breaths before her next bit due to her hypoxia. Currently M/S broom worker DC'd. course and wheezy in all lung interiano. Persistent cough still present. Utilizing scheduled nebulizers. Pt to dc today back to [facility]. Will continue to follow plan of care.
[2019-02-08 05:25] VITALS: BP 100/53
[2019-02-08 07:48] VITALS: BP 95/62
[2019-02-08 09:44] VITALS: BP 95/62
--- NOTE | 2019-02-08 10:07 | PATH ---
[facility] [place] [address] PATHOLOGY RPT PROCEDURE Name: TIM BAZZI Room #: 204- ADM IN .R.#: [id number] ������������������ Admission: 02/06/19 ������������������ Date of : 60 Discharge: Report #: [id number] Path Case #: [id number] Note [facility] Accession Number: [id number] TESTS RESULT FLAG UNITS REF RANGE LAB Clinician Provided Cytology Information No. of containers..01 Other (Miscellaneous) Source: 01 CHEST FLUID DIAGNOSIS: 02 CHEST FLUID INADEQUATE, INSUFFICIENT CELLS FOR STUDY. ESSENTIALLY ACELLULAR SPECIMEN. SPECIMEN CONSISTS OF BLOOD. THIS INTERPRETATION INCLUDES EVALUATION OF A CELL BLOCK. Signed out by: 02 Marcos Islas MD, Pathologist NPI- [id number] Performed by: 01 Luis Vargas, Population Geneticist ([facility]) Gross description: 01 9ML, DARK RED, CLOUDY /LCS FLAG LEGEND: L-Low Normal,H-High Normal,LL-Alert Low,HH-Alert High <-Panic Low,>-Panic High,A-Abnormal,AA-Critical Abnormal Performed at: [address] [place] [address] Ar Olivera MD, [address] [address] Mildred Mercado MD, Performed at: [address], [place], [place] [id number] MD Ar Olivera MD Phone: [phone]
--- NOTE | 2019-02-08 10:35 | NUR ---
PT DISCHARGING TODAY BACK TO [facility]. FAXED DC ORDERS/SUMMARY TO FACILITY SPOKE WITH PAULO IN ADM THAT TRANSPORT ARRANGED THROUGH [facility]IA [facility]ER VAN ([facility] V[facility] NOT AVAILABLE) TO RESEARCH TEST ENGINE EVALUATOR BETWEEN [phone]. DCP FAXED DC SUMMARY TO PA'S OFFICE AND NOTIFIED OF DC TODAY. UNIT NOTIFIED AND CHART COPY PER US. RN TO CALL REPORT TO [phone].
--- NOTE | 2019-02-08 11:57 | NUR ---
ASSESSMENT CHARTED - MEDS PER MAR- NO CO'S OF PAIN OR NASUEA - NAILA DIET AND FLUIDS. UP TO THE BATHROOM - A LITTLE UNSTEADY ON FEET. PT BACK TO FACILITY THIS AM - REPORT CALLED TO FACILTIY - PT IV REMOVED PRIOR TO D/C. LEFT UNIT VIA STRETCHER /AMBULANCE - NO CO'S AT TIME OF D/C.
[2019-02-08 17:10] LABS: BODY FLUID ALBUMIN 2.2 g/dL (()); BODY FLUID AMYLASE 31 U/L (()); BODY FLUID GLUCOSE 69 mg/dL (())
== END 2019-02-08 11:49 | DRG 189 ==
LOC: ER 20:54 → EROBS 02-06 01:32 → 2N 02-06 01:32
PROVIDERS: Emergency Medicine; Nurse Practitioner Acute Care; ADMIT Hospitalist
PROC: 0W9B3ZZ Drainage of Left Pleural Cavity, Percutaneous Approach (ICD-10-PCS; principal; 2019-02-06)
DX: J96.21 Acute and chronic respiratory failure with hypoxia (principal); J44.1 Chronic obstructive pulmonary disease with (acute) exacerbation; F20.0 Paranoid schizophrenia; I42.8 Other cardiomyopathies; J90 Pleural effusion, not elsewhere classified; E03.9 Hypothyroidism, unspecified; E78.5 Hyperlipidemia, unspecified; E11.9 Type 2 diabetes mellitus without complications; I10 Essential (primary) hypertension; F17.210 Nicotine dependence, cigarettes, uncomplicated; D50.9 Iron deficiency anemia, unspecified; I95.9 Hypotension, unspecified; I34.0 Nonrheumatic mitral (valve) insufficiency; I35.1 Nonrheumatic aortic (valve) insufficiency; Z79.899 Other long term (current) drug therapy; Z85.71 Personal history of Hodgkin lymphoma
CPT/HCPCS: 10081; 10194

== ENCOUNTER 2019-07-04 12:26 | Inpatient (IN) | payer OTHER ==
[~2019-07-04] VITALS: Ht 172.7 cm; Wt 66.0 kg
[2019-07-04 12:28] VITALS: BP 189/105; BP 89/54
--- NOTE | 2019-07-04 12:36 | NUR ---
VERBAL CONSENT RECEIEVED FROM SHAQUILLE RIVERA FROM PUBLIC ADMIN OFFICE TO TREAT PATIENT. BANG DOWD WITNESSED
[2019-07-04 12:41] LABS: HCO3 32.9 mmol/L (22.0-26.0); PCO2 47.6 mmHg (35.0-45.0); PO2 58.6 mmHg (80.0-100.0); pH 7.458 (7.360-7.450); sO2 91.4 % (92.0-98.0)
[2019-07-04 12:47] LABS: WBC 7.5 thou/uL (4.0-11.0)
[2019-07-04 12:48] LABS: ABSOLUTE NEUTROPHILS 4.2 thou/uL (1.4-8.2); BASOPHILS 1.5 % (0.0-2.0); EOSINOPHILS 2.8 % (0.0-3.0); HEMATOCRIT 34.5 % (37.0-47.0); HEMOGLOBIN 11.4 gm/dL (12.0-15.0); LYMPHOCYTES 28.6 % (24.0-44.0); MCH 28.7 pg (26.0-34.0); MCHC 33.1 g/dL (28.0-37.0); MCV 86.5 fL (80.0-100.0); PLATELET COUNT 388 thou/uL (150-400); POLYS 56.1 % (36.0-66.0); RBC 3.99 mil/uL (4.20-5.00); RDW 17.6 % (10.5-14.5)
[2019-07-04 12:57] LABS: CALCIUM 9.3 mg/dL (8.5-10.1); CREATININE 1.1 mg/dL (0.6-1.0); POTASSIUM 3.1 mmol/L (3.5-5.1)
[2019-07-04 13:16] LABS: URINE BILIRUBIN NEGATIVE (Negative); URINE BLOOD NEGATIVE (Negative); URINE CLARITY CLEAR; URINE COLOR YELLOW; URINE GLUCOSE-RANDOM* NEGATIVE (Negative); URINE KETONES NEGATIVE (Negative); URINE LEUKOCYTES-REFLEX NEGATIVE (Negative); URINE NITRITE-REFLEX NEGATIVE (Negative); URINE PROTEIN (DIPSTICK) NEGATIVE (Negative); URINE UROBILINOGEN 0.2 E.U./dl (0.2-1.0)
--- NOTE | 2019-07-04 15:01 | NUR ---
1500- CPR INITIATED - NO PULSE EPI GIVEN AT 1504 PULSE CHECK AT 1506- +PULSE
--- NOTE | 2019-07-04 15:14 | NUR ---
PT INTUBATED SIZE 7.5-- 24 AT THE TEETH +COLOR CHANGE. 20MG OF ETOMIDATE GIVEN AT 1511 100MG OF SUCC GIVEN AT 1511
[2019-07-04 17:06] LABS: AMP/METHAMP Negative (Negative); BARBITURATES Negative (Negative); BENZODIAZEPINES Negative (Negative); COCAINE Negative (Negative); METHADONE Negative (Negative); OPIATES Negative (Negative); PCP Negative (Negative)
--- NOTE | 2019-07-04 17:14 | NUR ---
CALL PLACED TO CAMERON KRISHNA (GUARDIAN) FOR AUTHORIZATION FOR PICC LINE. WAITING FOR CALL BACK
--- NOTE | 2019-07-04 17:40 | NUR ---
APPROVAL OBTAINED TO START CENTRAL LINE BY EMILEE GIRALDO
--- NOTE | 2019-07-04 18:06 | NUR ---
VASCULAR ACCESS CONSULTED FOR MEDICAL NECESSITY CVAD. PT INTUBATED UNABLE TO DO TEACHING. RIJ WAS WIDELY PATENT WITH USG. 25CM 6FR TL JACC INSERTED TO 7CM EXTERNAL WITH BRISK BR. STAT CXR ORDERED.
[2019-07-04 18:12] VITALS: BP 94/43
--- NOTE | 2019-07-04 18:14 | NUR ---
CXR CONFIRMED CVAD IS IN SVC, RIJ RELEASED FOR IMMEDIATE USE PER PROTOCOL TO BANG IN ED
--- NOTE | 2019-07-04 19:26 | NUR ---
PATIENT ARRIVED TO UNIT AT 1832 WITH ED RN AND RESP. THERAPIST. PATIENT ON 100% FIO2 ON THE VENTILATOR. PATIENT NOT FOLLOWING COMMANDS. HYPOTHERMIA PROTOCOL INITATED.
--- NOTE | 2019-07-04 20:09 | NUR ---
1625- FLUID VOLUME RESUSCITATION ALONE HAS BEEN INEFFECTIVE IN MAINTAINING PT. PRESSURES. SPOKE WITH PSYCHIATRIC THERAPIST, ANA MARIA LAGOS WHO ADVISED CONTINUED FLUID VOLUME RESUSCITATION AND ADDITION OF DOPAMINE TITRATED FOR EFFECT TO MAP OF 60. DOPAMINE ADMINISTERED AT INITIAL DOSE OF 20MCG/KG/MIN. UNABLE TO OBTAIN MAP OF 60 WITH PROPOFOL DOSING. PROPOPOL HELD AT 1625 TO INCREASE PERFUSION PRESSURE. 1645- NOTIFIED PSYCHIATRIC THERAPIST ANA MARIA LAGOS OF ONGOING DECREASE IN BP. ADDITIONAL ORDERS FOR LEVOPHED OBTAINED WITH TITRATION INITIATED AT 20 MCG/MIN. PT. RESPONDED MINIMALLY IN FIVE MINUTES REQUIRING INCREASE IN DOSING TO 25 MCG/MIN. PT. CONTINUED TO FAIL TO ACHIEVE MAP OF 60. DOPAMINE TITRATED FOR EFFECT TO 30MCG/KG/MIN AT 1715. PSYCHIATRIC THERAPIST ANA MARIA LAGOS STATED TO TITRATE LEVOPHED FOR EFFECT AND DOSE REQUIRED INCLUDING INCREASE TO DOUBLE STRENGTH LEVOPHED IF NEEDED. 1718- PLUNKETT TO BEDSIDE WITH THIS RN. STATES THAT SHE WOULD LIKE CENTRAL LINE PLACEMENT AT THIS TIME. THE GUARDIAN WAS CONTACTED FOR PERMISSION. PT. CONTINUES TO DEMONSTRATE DECREASED LOC ALTHOUGH SHE BEGAN TO ATTEMPT TO REMOVE TREATMENTS INCLUDING ET TUBE. ORDERS WERE OBTAINED FOR SOFT RESTRAINTS AND PROPOFOL WAS RESUMED AT 10MCG/KG/MIN. SEDATION WAS EFFECTIVE BUT REDUCED BP REQUIRING ONGOING TITRATION OF VASOACTIVE MEDICATIONS TO MAINTAIN EFFECTIVE PERFUSION PRESSURES. URINARY CATHETER WAS ALSO PLACED AT THIS TIME. URINE OUTPUT WAS MAINTAINED AT GREATER THAN 30ML/HR. 1730 - REDUCED PROPOFOL TO 5MCG/KG/MIN TO MAINTAIN LIMITED SEDATION WND IMPROVE BLOOD PRESSURES AT THIS TIME. 1740- SRAVAN FROM IV TEAM TO THE BEDSIDE. 1745- PT. BEGAN RESISTING LINE PLACEMENT AND REQUIRED INCREASE IN DOSE OF PROPOFOL TO 10MCG/KG/MIN. THIS NURSE CONTINUED TO ASSIST WITH LINE PLACEMENT. LEVOPHED WAS TITRATED TO 40MCG/MIN. ANOTHER BOLUS WAS ORDERED AND ADMINISTERED. ONGOING DECREASE IN PRESSURE REQUIRED TITRATION OF DOPAMINE TO 35MCG/KG/MIN. 1755- RADIOLOGY TO BEDSIDE FOR VERIFICATION OF PLACEMENT. 1800- PLACEMENT VERIFIED BY SRAVAN. DOPAMINE,NS AND LEVOPHED TREATMENTS TRNASFERRED TO CENTRAL LINE. AFTER AGITATION FROM PROCEDURE PT. BP CONTINUED TO DECLINE REQUIRING ADDITIONAL INCREASE IN DOPAMINE TO 50MCG/KG/MIN AND LEVOPHED TO 50 MCG/MIN. 1820- HAD BANG CONTACT DOCTOR DIMITRIOS FOR FURTHER ORDERS. [address] [facility] HOLD ON MEDICATIONS AND CONTACT PHARMACY FOR ADDITIONAL MEDICATION. REQUESTED RT TO RETURN TO ER FOR PT. TRANSPORT TO CT AND ICU. 1840- TRANSPORTED PT. TO CT FOR PE PROTOCOL. PT. TOLERATED PROCEDURE WELL AND STARTED TO ROUSE. PT. TRANSPORTED TO ICU AND TRANSFER OF CARE COMPLETED.
[2019-07-04 20:17] LABS: BE(vivo) -4.3 mmol/L (-2 to +3); HCO3 25.2 mmol/L (22.0-26.0); PO2 294.6 mmHg (80.0-100.0); sO2 99.5 % (92.0-98.0)
[2019-07-04 20:19] LABS: pH 7.172 (7.360-7.450)
[2019-07-04 20:20] LABS: PCO2 70.3 mmHg (35.0-45.0)
--- NOTE | 2019-07-04 21:05 | 2DMMODE ---
[place] [address] [facility] [place] [address] 2 D/M-MODE ECHOCARDIOGRAM Name: TIM BAZZI Room #: 242-P [facility].#: [id number] Admission: 07/04/19 Attend Phys: Sirisha Johnson, Discharge: Date of : 60 Report #: [id number] THIS REPORT FOR: //name// APPROVED REPORT Study performed: 07/04/2019 17:56:41 EXAM: Comprehensive 2D, Doppler, and color-flow Echocardiogram Patient Location: Bedside Room #: 242 Status: on-call, stat BSA: 1.88 HR: 93 bpm Rhythm: NSR Other Information Study Quality: Adequate Risk Factors: Cardiac Risk Factors: HTN, Hyperlipidemia, DM Indications COPD Respiratory Failure S/P Code 2D Dimensions IVSd: 10.53 (7-11mm) LVOT Diam: 22.00 (18-24mm) LVDd: 44.49 mm PWd: 10.70 (7-11mm) Ascending Ao: 29.59 (22-36mm) LVDs: 38.16 (25-40mm) Aortic Root: 27.71 mm LV Single Plane 4CH: 45.29 % LV Single Plane 2CH: 39.53 % Biplane EF: 43.4 % Volumes Left Atrial Volume (Systole) Single Plane 4CH: 56.36 mL Single Plane 2CH: 90.30 mL LA ESV Index: 45.00 mL/m2 Aortic Valve AoV Peak Shravan.: 1.78 m/s [facility] [address] [place] [address] 2 D/M-MODE ECHOCARDIOGRAM Name: TIM BAZZI Room #: 242-P [facility] IN .R.#: [id number] Admission: 07/04/19 Attend Phys: Sirisha Johnson, Discharge: Date of : 60 Report #: [id number] AO Peak Gr.: 12.67 mmHg LVOT Max P.48 mmHg LVOT Max V: 0.93 m/s YUMIKO Vmax: 2.04 cm2 Pulmonary Valve PV Peak Shravan.: 1.01 m/s PV Peak Gr.: 4.10 mmHg Tricuspid Valve TR Peak Shravan.: 2.74 m/s TR Peak Gr.: 30.00 mmHg Left Ventricle The left ventricle is normal size. There is normal LV segmental wall motion. Borderline concentric left ventricular hypertrophy. Left ventricular systolic function is mildly decreased. LVEF is 40-45%. This study is not technically sufficient to allow evaluation of the LV diastolic function. Right Ventricle Right ventricle is dilated. The right ventricular systolic function is normal. Atria Left atrium is moderately dilated. Right atrium is dilated. Aortic Valve The aortic valve is normal in structure. Mild to moderate aortic regurgitation. There is no aortic valvular stenosis. Mitral Valve Mitral valve leaflets are mildly thickened. Severe mitral regurgitation. No evidence of mitral valve stenosis. Tricuspid Valve The tricuspid valve is normal in structure. Moderate tricuspid regurgitation. Tricuspid regurgitant jet measures 30 mmHg. Unable to assess PA pressure. Pulmonic Valve The pulmonary valve is normal in structure. Mild pulmonic regurgitation. Great Vessels The aortic root is normal in size. The ascending aorta is normal in size. IVC is dilated. Pt. on ventilator. [facility] [address] [place] [address] 2 D/M-MODE ECHOCARDIOGRAM Name: TIM BAZIZ Jane Room #: 242-[facility].#: [id number] Admission: 07/04/19 Attend Phys: Sirisha Johnson, Discharge: Date of : 60 Report #: [id number] Pericardium There is no pericardial effusion. Pleural effusion is present. <Conclusion> The left ventricle is normal size. LVEF is 40-45%. Right ventricle is dilated. The aortic valve is normal in structure. Mild to moderate aortic regurgitation. Mitral valve leaflets are mildly thickened. Severe mitral regurgitation. The tricuspid valve is normal in structure. Moderate tricuspid regurgitation. Tricuspid regurgitant jet measures 30 mmHg. Unable to assess PA pressure. The pulmonary valve is normal in structure. Mild pulmonic regurgitation. There is no pericardial effusion. <ELECTRONICALLY SIGNED> By: Macho Coughlin MD 07/04/192103 03 03 Macho Coughlin MD /INF
--- NOTE | 2019-07-04 21:57 | NUR ---
ASSUMED CARE OF PT AT 1900. PT WAS PLACED ON COOLING BLANKET BY DAY SHIFT RN, TESSA, ICU NURSING STAFF AND ED RN (ALL AT BEDSIDE AT 1900). PT THRASHING IN BED ON BILATERAL SOFT WRIST RESTRAINS. NOT FOLLOWING COMMANDS. PT ON MAXED ON LEVOPHED AND HIGH DOSE DOPAMINE FOR HYPOTENSION. PT ON LOW DOSE PROPOFOL GTT. DR YODER AT BEDSIDE AT 191. HE ORDERED TO INITIATE HYPOTHERMIA PROTOCOL. PT HAD ALREADY BEEN UNDERGOING COOLING IN ED WITH ICE BAGS, PER DAY SHIFT RN REPORT. ARTICSUN SHOWS [employer] TEMP REACHED AT 1851. PT BRONCHED AT [address] YODER AND RT SEE. POST BRONCH LABS AND ABG DRAWNED PER PROTOCOL. PT NOW HAS TOLERATED SLOWLY BEING TITRATED OFF DOPAMINE GTT AND REMAINS ON LEVO GTT PER PROTOCOL ORDERS. DR CLAUDIA DELONG AT BEDSIDE AT 2144. WILL CONTINUE TO MONITOR PT.
[2019-07-04 22:51] LABS: BE(vivo) -3.8 mmol/L (-2 to +3); HCO3 22.4 mmol/L (22.0-26.0); PCO2 45.3 mmHg (35.0-45.0); PO2 76.6 mmHg (80.0-100.0); sO2 94.2 % (92.0-98.0)
[2019-07-04 22:52] LABS: pH 7.312 (7.360-7.450)
[2019-07-05 00:42] LABS: HEMOGLOBIN 9.8 gm/dL (12.0-15.0)
[2019-07-05 00:44] LABS: HEMATOCRIT 30.4 % (37.0-47.0); MCH 28.3 pg (26.0-34.0); MCHC 32.4 g/dL (28.0-37.0); MCV 87.2 fL (80.0-100.0); PLATELET COUNT 347 thou/uL (150-400); RBC 3.48 mil/uL (4.20-5.00); RDW 18.1 % (10.5-14.5)
[2019-07-05 01:08] LABS: CREATININE 1.6 mg/dL (0.6-1.0); MAGNESIUM 1.5 mg/dL (1.8-2.4); TROPONIN-I 0.09 ng/mL (<0.06)
[2019-07-05 01:09] LABS: CALCIUM 7.2 mg/dL (8.5-10.1); POTASSIUM 4.6 mmol/L (3.5-5.1)
[2019-07-05 01:31] LABS: ABSOLUTE NEUTROPHILS 9.6 thou/uL (1.4-8.2); ANISOCYTOSIS 2+; BURR CELLS 1+; POIKILOCYTOSIS 2+
[2019-07-05 06:00] LABS: HEMATOCRIT 31.2 % (37.0-47.0); HEMOGLOBIN 10.1 gm/dL (12.0-15.0); MCHC 32.2 g/dL (28.0-37.0); MCV 86.9 fL (80.0-100.0); PLATELET COUNT 344 thou/uL (150-400); RBC 3.59 mil/uL (4.20-5.00); RDW 17.8 % (10.5-14.5); WBC 12.5 thou/uL (4.0-11.0)
[2019-07-05 06:08] LABS: CALCIUM 7.6 mg/dL (8.5-10.1); CREATININE 1.3 mg/dL (0.6-1.0); POTASSIUM 4.3 mmol/L (3.5-5.1)
[2019-07-05 06:17] LABS: CALCIUM 7.7 mg/dL (8.5-10.1); CREATININE 1.3 mg/dL (0.6-1.0); MAGNESIUM 2.2 mg/dL (1.8-2.4); POTASSIUM 4.3 mmol/L (3.5-5.1); TROPONIN-I 0.07 ng/mL (<0.06)
[2019-07-05 06:40] LABS: ANISOCYTOSIS 1+; PLATELET ESTIMATE NORMAL; POIKILOCYTOSIS 1+
[2019-07-05 12:12] LABS: HEMATOCRIT 31.6 % (37.0-47.0); HEMOGLOBIN 10.1 gm/dL (12.0-15.0); MCH 27.8 pg (26.0-34.0); MCHC 32.1 g/dL (28.0-37.0); MCV 86.6 fL (80.0-100.0); PLATELET COUNT 339 thou/uL (150-400); RBC 3.64 mil/uL (4.20-5.00); RDW 17.8 % (10.5-14.5); WBC 12.6 thou/uL (4.0-11.0)
[2019-07-05 12:38] LABS: ANION GAP 8 mmol/L (7-16); BUN 25 mg/dL (7-18); CALCIUM 8.2 mg/dL (8.5-10.1); CHLORIDE 105 mmol/L (98-107); CO2 26 mmol/L (21-32); CREATININE 1.3 mg/dL (0.6-1.0); GLUCOSE 116 mg/dL (74-106); MAGNESIUM 2.1 mg/dL (1.8-2.4); POTASSIUM 4.4 mmol/L (3.5-5.1); SODIUM 139 mmol/L (136-145); TROPONIN-I <0.06 ng/mL (<0.06)
--- NOTE | 2019-07-05 12:49 | HC ---
[facility] [place] [address] CONSULTATION Name: TIM BAZZI Room #: 242-P [facility] IN ..#: [id number] Admission: 07/04/19 Attend Phys: Sirisha Jonhson MD Discharge: Date of : 60 Report #: [id number] THIS REPORT FOR: //name// CC: Kamaljit Johnson DATE OF SERVICE: 07/04/2019 INFECTIOUS DISEASE CONSULTATION REASON FOR CONSULTATION: Evaluate septic shock and respiratory failure. HISTORY OF PRESENT ILLNESS: The patient is a 59-year-old with underlying history of schizophrenia, who presents with an acute change in mental status. She resides in a usp. After breakfast this morning, she went out to smoke a cigarette. After returning, she was in her room and was later found encephalopathic and short of breath. Oxygen saturation was 87%. She had had no previous cough or sputum production. She does have a history of hypertension, diabetes, and remote history of lymphoma. She has had previous aspiration pneumonia treated earlier this year. She has a chronic left pleural effusion noted as well. Following evaluation in the Emergency Room, she went bradycardic and lost her pulse. She required CPR and was intubated. She had gross aspiration with food in her mouth. She did undergo bronchoscopy without any foreign material in the deep airways. She has remained in shock after IV fluid resuscitation and is now on vasopressors. On an FiO2 of 50%. She has a right IJ catheter in place. She has a right wrist art-line in place, indwelling Valencia catheter. She has had no reported chest pain or cardiac injury. There have been no other episodes of nausea, vomiting or diarrhea. REVIEW OF SYSTEMS: A 10-point review of systems negative other than what has been described above. PAST MEDICAL HISTORY: Paranoid schizophrenia, hypothyroidism, hyperlipidemia, Hodgkin's disease, diabetes, iron deficiency anemia and hypertension. ALLERGIES: None known. MEDICATIONS: As noted on her MAR including Depakote, ipratropium, albuterol, levothyroxine, clozapine, atorvastatin, Celexa, Ativan, allopurinol, Tylenol, insulin, aspirin, carvedilol, lisinopril, Cogentin, amlodipine, iron. She was given azithromycin and ceftriaxone in the Emergency Room. FAMILY HISTORY: Noncontributory. [address] [address] CONSULTATION Name: TIM BAZZI Room #: 242-P [facility] IN M.R.#: [id number] Admission: 07/04/19 Attend Phys: Sirisha Johnson MD Discharge: Date of : 60 Report #: [id number] SOCIAL HISTORY: She was a smoker of cigarettes. No significant alcohol intake. No evidence of a previous HIV risk. PHYSICAL EXAMINATION: VITAL SIGNS: Currently afebrile, blood pressure of 106/58 on vasopressors and heart rate 89. GENERAL: She is obese. SKIN: Without rash or decubitus. No palpable adenopathy. Right IJ catheter site unremarkable with no drainage. Right wrist art line in place with no drainage. HEENT: Eyes, without scleral icterus. She did have conjunctival edema. Pupils were reactive to light. Mouth with oral intubation. She does have dentition in fair repair. NECK: Supple, with no thyromegaly or mass. She did have some fullness in the superior portion of her chest. HEART: Regular without appreciable murmur, gallop or rub. CHEST: Decreased breath sounds in the left base posteriorly, coarse breath sounds bilaterally. ABDOMEN: Soft, obese, and nontender. No hepatosplenomegaly or mass. GENITOURINARY: External genitalia with indwelling Valencia catheter. EXTREMITIES: Without clubbing, cyanosis or edema. She was able to move all extremities, although she was not responding to command. A cooling protocol was in place. LABORATORY DATA: Reviewed. Microbiology reviewed. X-rays reviewed. IMPRESSION: 1. A 59-year-old with underlying diabetes, valvular heart disease, schizophrenia, presents with altered mental status and pneumonia with aspiration, likely healthcare associated. She is post-cardiac post-cardiopulmonary arrest. 2. Diabetes. 3. History of congestive heart failure. 4. history of Hodgkin's lymphoma. 5. Ileus. RECOMMENDATIONS: We will continue broad antibiotic coverage for healthcare-associated pneumonia. Obtain cultures and antigen testing. Full ICU support with antibiotics, vasopressors and nutritional support. We will adjust antibiotics pending further laboratory studies. <ELECTRONICALLY SIGNED> By: Gabino Murillo MD 07/05/19 [id number] Gabino Murillo MD /nt
[2019-07-05 13:05] LABS: ABSOLUTE NEUTROPHILS 9.6 thou/uL (1.4-8.2); ANISOCYTOSIS 1+; METAMYELOCYTES 1 %; PLATELET ESTIMATE NORMAL
--- NOTE | 2019-07-05 14:26 | NUR ---
PT ADMITTED RELATED TO CARDIAC ARREST. CM REVIEWED CHART AND SPOKE WITH CARE TEAM. PT IS CURRENTLY SEDATED AND INTUBATED. PT IS LTC RESIDENT AT [facility]. 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 KYRA CALLED AND SPOKE WITH TONYA ONE OF THE HISTORIC CLOTHING AND COSTUME MAKER SHE INIDCATED THAT [facility] HAD NOTIFIED THEM THAT THEY WERE SENDING PT TO [facility]. CM PROVIDED BRIEF CLINIAL STATUS UPDATE. CM ASKED DC MUD TRUCKER TO FAX CLINICALS TO [facility] AND TO [facility] PA OFFICE . TONYA INDICATED THAT ONCE MEDICALLY STABLE AND IF APPROPRIATE THEY WOULD ANTICIPATE PT PT RETURN TO [facility]. CM TO FOLLOW INDICATED WITH DC PLANNING.
--- NOTE | 2019-07-05 16:16 | NUR ---
FAXED CLINICAL UPDATE TO [facility] RECEIVED CONFIRMATION AND LEFT MSG WITH PAULO IN ADM. DP TO FOLLOW.
[2019-07-05 18:23] LABS: HEMATOCRIT 31.1 % (37.0-47.0); MCHC 32.2 g/dL (28.0-37.0); PLATELET COUNT 312 thou/uL (150-400); RBC 3.57 mil/uL (4.20-5.00); RDW 17.9 % (10.5-14.5); WBC 10.9 thou/uL (4.0-11.0)
[2019-07-05 18:41] LABS: ANION GAP 9 mmol/L (7-16); BUN 28 mg/dL (7-18); CALCIUM 7.9 mg/dL (8.5-10.1); CHLORIDE 105 mmol/L (98-107); CO2 26 mmol/L (21-32); CREATININE 1.3 mg/dL (0.6-1.0); GLUCOSE 119 mg/dL (74-106); POTASSIUM 3.9 mmol/L (3.5-5.1); SODIUM 140 mmol/L (136-145); TROPONIN-I <0.06 ng/mL (<0.06)
[2019-07-05 18:46] LABS: ABSOLUTE NEUTROPHILS 8.8 thou/uL (1.4-8.2)
[2019-07-05 18:47] LABS: ANISOCYTOSIS 1+
[2019-07-05 19:07] VITALS: BP 89/57
[2019-07-05 20:03] VITALS: BP 91/52
--- NOTE | 2019-07-05 20:10 | NUR ---
ASSESSMENTS AND INTERVENTIONS DOCCMENTED. PATIENT REMAINS ON HYPOTHERMIA PROTOCOL. VENT ALARMING RELATED TO HIGH PEAK PRESSURES. RT PAGED, DR. YODER PAGED. NO NEW ORDERS. VENT CONTINUES TO ALARM THROUGH OUT SHIFT EVEN AFTER SUCCTIONING AND REPLACEMENT OF HME. PATIENT STABLE. PATIENT TITRATED OFF PRESSORS. THE PLAN OF CARE IS TO START REWARMING AND TREAT INFECTION.
--- NOTE | 2019-07-05 20:13 | NUR ---
ELROY CALLED AND PATIENT NU,NATE IS #[id number]
[2019-07-06] VITALS (7 sets, daily range): BP systolic 78–123; BP diastolic 38–72
[2019-07-06 04:39] LABS: HEMATOCRIT 29.3 % (37.0-47.0); HEMOGLOBIN 9.7 gm/dL (12.0-15.0); MCH 28.4 pg (26.0-34.0); MCHC 33.2 g/dL (28.0-37.0); MCV 85.5 fL (80.0-100.0); RBC 3.43 mil/uL (4.20-5.00); RDW 17.9 % (10.5-14.5); WBC 10.5 thou/uL (4.0-11.0)
[2019-07-06 04:48] LABS: CALCIUM 7.9 mg/dL (8.5-10.1); CREATININE 1.3 mg/dL (0.6-1.0)
[2019-07-06 04:51] LABS: POTASSIUM 2.8 mmol/L (3.5-5.1)
[2019-07-06 05:11] LABS: HCO3 21.8 mmol/L (22.0-26.0); PCO2 33.9 mmHg (35.0-45.0); PO2 99.7 mmHg (80.0-100.0); pH 7.426 (7.360-7.450); sO2 97.7 % (92.0-98.0)
--- NOTE | 2019-07-06 06:15 | NUR ---
PT INTUBATED AND ON VENT. DEEPLY SEDATED MOST OF THE NIGHT, PER HYPOTHERMIA PROTOCOL. ON PROPOFOL AND VERSED GTTS FOR SEDATION. PT BEGAN THE REWARMING PHASE AT 1850 YESTERDAY EVENING. PT HAS NOT YET REACHED GOAL TEMP; DEVON HUGGER APPLIED. PROPFOL SLOWLY TITRATED DOWN OVERNIGHT. EARLIER THIS MORNING, PT WAS OPENING EYES SPONTANEOUSLY, BUT DID NOT TRACK. PT WAS MOVING BUE, BUT THE MOVEMENT WAS NOT PURPOSEFUL. SEDATION INCREASED. WILL CONTINUE TO MONITOR.
--- NOTE | 2019-07-06 11:03 | NUR ---
Patient reached goal temp at 0758. Potassium was already infusing from previous lab draw. Will recheck per protocol.
--- NOTE | 2019-07-06 13:24 | NUR ---
NURSE TALKED WITH DR. TAYLOR IN REGARDS TO VANCOMYCIN LEVEL. HE EXPRESSED TO KEEP DOSE IS ALREADY ORDERED.
--- NOTE | 2019-07-06 17:05 | NUR ---
Care assumed at 1500. Pt remains normo-thermic, sedated on vent, slight generalized tremors noted. Monitor sinus rhythm.
[2019-07-07] VITALS: BP 116/69
--- NOTE | 2019-07-07 03:23 | NUR ---
NO CHANGES OVERNIGHT. REMAINS INTUBATED AND ON VENT. PT HAS BEEN IN THE 'NORMO-THERMIC' PHASE OF THE HYPOTHERMIA PROTOCOL SINCE YESTERDAY MORNING. PT MODERATELY SEDATED WITH PROPOFOL AND VERSED GTTS. PT OPENS EYES AND WITHDRAWS TO PAIN, BUT DOES NOT TRACK OR FOLLOW ANY COMMANDS. WILL CONTINUE TO MONITOR.
[2019-07-07 04:00] VITALS: BP 106/55
[2019-07-07 08:00] VITALS: BP 116/59
[2019-07-07 09:17] LABS: HEMATOCRIT 28.8 % (37.0-47.0); HEMOGLOBIN 9.5 gm/dL (12.0-15.0); MCH 28.4 pg (26.0-34.0); MCHC 32.9 g/dL (28.0-37.0); MCV 86.3 fL (80.0-100.0); PLATELET COUNT 326 thou/uL (150-400); RBC 3.34 mil/uL (4.20-5.00); RDW 18.4 % (10.5-14.5)
[2019-07-07 09:26] LABS: BE(vivo) 1.6 mmol/L (-2 to +3); HCO3 25.1 mmol/L (22.0-26.0); PCO2 35.4 mmHg (35.0-45.0); PO2 100.6 mmHg (80.0-100.0); pH 7.469 (7.360-7.450); sO2 97.9 % (92.0-98.0)
[2019-07-07 09:30] LABS: ALBUMIN 2.2 g/dL (3.4-5.0); CREATININE 1.2 mg/dL (0.6-1.0); POTASSIUM 3.4 mmol/L (3.5-5.1); TOTAL BILIRUBIN 0.3 mg/dL (<0.1-1.0); TOTAL PROTEIN 7.2 g/dL (6.4-8.2)
[2019-07-07 09:34] LABS: ABSOLUTE NEUTROPHILS 9.4 thou/uL (1.4-8.2); METAMYELOCYTES 1 %; MYELOCYTES 1 %
[2019-07-07 09:35] LABS: ANISOCYTOSIS 2+; BURR CELLS 1+; PLATELET ESTIMATE NORMAL; POLYCHROMASIA SLIGHT
[2019-07-07 09:36] LABS: TEARDROPS OCCASIONAL
--- NOTE | 2019-07-07 10:43 | NUR ---
CALLED DR. PIZANO, NEUROGY CONSULT AND MOD SLIDING SCALE OK.
[2019-07-07 12:00] VITALS: BP 124/68
--- NOTE | 2019-07-07 15:14 | NUR ---
0715 ASSUMED CARE, REPORT RECEIVED SEE CHARTING. 0900 DR YODER AT BEDSIDE POC DISCUSSED, LABS, ETC. [address] YANEZ AT BEDSIDE POC DISCUSSED, DR YANEZ SPOKE WITH DR PIZANO REGARDING POC. 1100 NEURO CONSULT AT BEDSIDE POC DISCUSSED.
[2019-07-07 16:00] VITALS: BP 111/56
--- NOTE | 2019-07-07 19:07 | NUR ---
1440 DR YODER REQUESTED TO WEAN OFF VERSED GTT IF POSSIBLE. PT OFF GTT AT 1440.
--- NOTE | 2019-07-07 19:08 | NUR ---
1909 REPORT GIVEN TO PM RN, VSS, PT RESTING SEDATED ON DIPRIVAN.
[2019-07-07 20:00] VITALS: BP 110/66
--- NOTE | 2019-07-07 22:30 | HC ---
[facility] [place] [address] CONSULTATION Name: TIM BAZZI Room #: 242[facility] IN M.R.#: [id number] Admission: 07/04/19 Attend Phys: Sirisha Johnson MD Discharge: Date of : 60 Report #: [id number] THIS REPORT FOR: //name// CC: Kamaljit Johnson DATE OF SERVICE: 07/07/2019 INPATIENT PSYCHIATRIC EVALUATION The patient is in the Intensive Care Unit, room 242 on endotracheal intubation with propofol, therefore, verbal interview and the ability to check reflexes responsive to things is grossly minimal. PRIMARY TEAM ATTENDING: Farhana Mullins M.D. CONSULTING: Pulmonary Critical Care physician is Kory Perea M.D. CONSULTING PSYCHIATRIST: Mario Soto D.O. REASON FOR CONSULTATION: Psychiatric medications. HISTORY OF PRESENT ILLNESS: This is a 59-year-old black female who is already quite disabled under guardianship with the public front office administrator as her guardian. The patient unfortunately appeared in the Emergency Room from prison and was walking and talking normally and went out to smoke. We found in her room with a low O2 saturation. Apparently, the patient was given sandwich and she must have choked on it, so CPR was started. Pulseless electrical activity was found. The patient was intubated and moved to the ICU. The patient's QTc was 511 on 07/04/2019. Date of admission was 07/04/2019 that apparently was after resuscitation. On bedside exam today, the patient is supine, had a bit elevated at bed, intubated, not responsive, given the iatrogenic efforts, yesterday when the nurse called me the only Psych medication I started her on was haloperidol with hope that she would be leaning more responsive and this would help with ICU delirium. In discussion with Dr. Perea today, we have a situation where the patient quite frankly is too ill for psychiatric pharmacologic measures. I would encourage the hospitalist and nurses is to continue with measures to delirium and so forth. On 10/04/2018, consultation by Dr. Koenig in terms of past psychiatric history of schizophrenia as a PA guardian, she was discharged from [facility] on 10/01/2018, had been on Clozaril back then. GENERAL MEDICAL HISTORY: Hypertension, hyperlipidemia, diabetes mellitus, [facility] [address] [place] [address] CONSULTATION Name: TIM BAZZI Room #: 242-P [facility] IN .R.#: [id number] Admission: 07/04/19 Attend Phys: Sirisha Johnson MD Discharge: Date of : 60 Report #: [id number] history of healthcare-acquired pneumonia, tobacco abuse, chronic anemia, history of dysphagia. SURGICAL AND FAMILY HISTORY: Not obtainable at this time. Lives in prison. Also, in reviewing notes, the patient was intubated for respiratory failure back in September. At that point, Dr. Koenig had elected to continue Psych meds via NG tube. I think given the patient's recent history, I am supportive that with the propofol and other life support kind of medications the patient is getting, I think the benefit of doing so would be highly questionable. Also, I do not want to add to aspiration risk as we are trying to wean and extubate so forth continuing. LABORATORY DATA: The patient's current laboratories on 07/07/2019, white count 12.0, H and H 9.5 and 28.8, platelet count 326. Absolute neutrophil count 9.4. Blood gas today was favorable from arterial line, pH 7.469, pCO2 of 35.4, pO2 of 100.6, bicarbonate 25.1, oxygen saturation 96.4, APTT done on 07/05/2019, 32.1. Chemistries done on the , sodium 145, potassium 3.4, chloride 109, bicarbonate 26, anion gap 10, BUN 23, creatinine 1.2, estimated GFR 56, glucose 205, calcium 8.0, total bilirubin 0.3, AST 24, ALT 40, alkaline phosphatase was 112. NT-proBNP 4274. Albumin 2.2. Urinalysis done on the was negative. Toxicology screen was negative. Depakote level on the was 58. Vancomycin trough on the was 19. Serology, she has a respiratory virus panel pending. PHYSICAL EXAMINATION: VITAL SIGNS: This patient tele is in sinus rhythm, pulse 99, respirations 16, BP 116/59. Arterial mapped 89. Physical exam as stated supine with iatrogenically flaccid. MENTAL STATUS EXAMINATION: This is a well-developed, disheveled black female in the ICU, intubated with life support measures. Attention and concentration could not be assessed. Speech: Nonverbal. Thought process, thought content cannot be assessed. Unable to assess for suicidality, homicidality. Memory unable to assess. Insight and judgment are both impaired. Fund of knowledge below normal by history. FORMULATION: A 59-year-old black female status post choking aspiration, cardiac arrest in the Emergency Room in [place], now intubated with life support measures. DIAGNOSIS: Delirium due to cardiac arrest, intubation, propofol sedationAt Schizophrenia by history. PLAN: Given the severe illness of the patient, her past response and recurrence of respiratory failure requiring intubation, I think all psychiatric medications [address] [address] CONSULTATION Name: TIM BAZZI Room #: 242-P ADM IN M.R.#: [id number] Admission: 07/04/19 Attend Phys: Sirisha Johnson MD Discharge: Date of : 60 Report #: [id number] should be discontinued. I conferred with Dr. Perea and I think the haloperidol may not be advantageous at this time given the efforts to wean and extubate the patient, I think the basic point is regardless of her being agitated per se, she needs to be successfully extubated and have improvement from respiratory failure, once that happens, certainly psychiatric medications can be revisited. I discussed this with Dr. Farhana Mullins via telephone, Dr. Kory Perea in person, Intensive Care Unit nursing staff. Thnak you for allowing me to participate in this patients care. I will be happy to reconsult when patient is extubated and can better participate in her care. Time spent on interview, review of records, coordination of care for this matter is at least 45 minutes. <ELECTRONICALLY SIGNED> By: Mario Soto DO 07/07/19 2230 1005 1051 Mario Soto DO /nt
[2019-07-08] VITALS (10 sets, daily range): BP systolic 100–125; BP diastolic 47–64
[2019-07-08 05:23] LABS: BE(vivo) 1.7 mmol/L (-2 to +3); HCO3 25.3 mmol/L (22.0-26.0); PCO2 35.7 mmHg (35.0-45.0); PO2 82.7 mmHg (80.0-100.0); pH 7.468 (7.360-7.450); sO2 96.8 % (92.0-98.0)
[2019-07-08 05:24] LABS: HEMATOCRIT 29.7 % (37.0-47.0); HEMOGLOBIN 9.4 gm/dL (12.0-15.0); MCHC 31.7 g/dL (28.0-37.0); MCV 88.2 fL (80.0-100.0); PLATELET COUNT 348 thou/uL (150-400); RBC 3.36 mil/uL (4.20-5.00); RDW 18.8 % (10.5-14.5); WBC 12.1 thou/uL (4.0-11.0)
[2019-07-08 05:38] LABS: CREATININE 0.8 mg/dL (0.6-1.0); POTASSIUM 4.2 mmol/L (3.5-5.1); TOTAL BILIRUBIN 0.4 mg/dL (<0.1-1.0); TOTAL PROTEIN 6.8 g/dL (6.4-8.2)
[2019-07-08 06:11] LABS: ANISOCYTOSIS 2+; PLATELET ESTIMATE NORMAL; POIKILOCYTOSIS 2+
--- NOTE | 2019-07-08 10:58 | NUR ---
Recommend change formula to vital AF 1.2 at goal of 50ml/hr
--- NOTE | 2019-07-08 12:54 | EKG ---
[address] [place] [place] [address] ELECTROCARDIOGRAM REPORT Name: TIM BAZZI Room #: 242-P ADM IN M.R.#: [id number] Admission: 07/04/19 Attend Phys: Sirisha Johnson MD Discharge: Date of : 60 Report #: [id number] THIS REPORT FOR: //name// [facility] ED Test Date: 2019-07-04 Test Time: 12:39:20 Pat Name: TIM BAZZI Department: Room: 242 Gender: F Instrument Sterilizer: nadir : 1960 Requested By: Emmy Flores Order Number: [id number] MD: Goyo Loo Measurements Intervals [place] Rate: 85 P: 55 GA: 232 QRS: -39 QRSD: 150 T: 120 QT: 429 QTc: 511 Interpretive Statements Sinus rhythm Prolonged GA interval Probable left atrial enlargement LVH with IVCD, LAD and secondary repol abnrm RIGHT BUNDLE BRANCH BLOCK and lafb Compared to ECG 02/05/2019 21:11:25 Electronically Signed On 07-08-2019 12:53:51 MAGNESIUM MILL OPERATOR by Goyo Loo [email or web address] <ELECTRONICALLY SIGNED> By: Goyo Loo MD 07/08/19 1253 1239 1239 Goyo Loo MD /EPI
--- NOTE | 2019-07-08 12:57 | EKG ---
[address] [place] [address] ELECTROCARDIOGRAM REPORT Name: TIM BAZZI Room #: 242-P ADM IN M.R.#: [id number] Admission: 07/04/19 Attend Phys: Sirisha Johnson MD Discharge: Date of : 60 Report #: [id number] THIS REPORT FOR: //name// [facility] ED Test Date: 2019-07-04 Test Time: 15:11:46 Pat Name: TIM BAZZI Department: Room: 242 Gender: F Hall Coordinator: YEIMY : 1960 Requested By: Aysha Carvalho Order Number: [id number] MD: Goyo Loo Measurements Intervals [place] Rate: 70 P: 0 [place]: 187 QRS: -35 QRSD: 159 T: 37 QT: 478 QTc: 516 Interpretive Statements Sinus with frequent PACs Probable left atrial enlargement LVH with IVCD and secondary repol abnrm Compared to ECG 02/05/2019 21:11:25 Wandering atrial pacemaker now present Electronically Signed On 07-08-2019 12:57:14 TRUCK ASSEMBLER by Goyo Loo [email or web address] <ELECTRONICALLY SIGNED> By: Goyo Loo MD 07/08/19 1257 151 151 Goyo Loo MD /EPI
--- NOTE | 2019-07-08 13:15 | EKG ---
[address] [address] ELECTROCARDIOGRAM REPORT Name: TIM BAZZI Room #: 242- ADM IN M.R.#: [id number] Admission: 07/04/19 Attend Phys: Sirisha Johnson MD Discharge: Date of : 60 Report #: [id number] THIS REPORT FOR: //name// [facility] Test Date: 2019-07-05 Test Time: 07:13:00 Pat Name: TIM BAZZI Department: Room: 242 Gender: F Lease Out Worker: Rancho WATTS : 1960 Requested By: Aysha Carvalho Order Number: [id number] MD: Goyo Loo Measurements Intervals [place] Rate: 66 P: 0 [place]: QRS: -36 QRSD: 152 T: QT: 552 QTc: 579 Interpretive Statements Sinus rhythm. Artifact noted. Compared to ECG 02/05/2019 21:11:25 Electronically Signed On 07-08-2019 13:15:07 DRAIN CLEANER by Goyo Loo [email or web address] <ELECTRONICALLY SIGNED> By: Goyo Loo MD 07/08/19 1315 2 2 Goyo Loo MD /NIESHA
--- NOTE | 2019-07-08 15:00 | NUR ---
PT IS POST CARDIAC ARREST AND HYPERTHERMIA. EYES OPEN NON RESPONSIVE . PUPILS ARE A 4 AND REACTIVE BILATERAL. REMAINS ON THE VENT. LUNGS ARE COARSE THROUGHOUT. SUCTION COPIOUS THICK SECREATIONS. SCDS ON BILATERAL, VITALS ARE STABLE. TOLERATING TUBE FEEDINGS RESIDUAL OF 40 CC NOTED. ABDOMEN IS ROUND AND BOWEL SOUNDS HYPOACTIVE. NO ISSUES OR CONERNS NOTED. WILL CONTINUE TO PROGRESS TOWARDS GOALS. NEURO CONSULTED ON PT TO SEE.
[2019-07-09] VITALS (24 sets, daily range): BP systolic 87–113; BP diastolic 45–79
[2019-07-09 06:23] LABS: HEMATOCRIT 26.2 % (37.0-47.0); HEMOGLOBIN 8.7 gm/dL (12.0-15.0); MCHC 33.1 g/dL (28.0-37.0); MCV 87.5 fL (80.0-100.0); RBC 2.99 mil/uL (4.20-5.00); RDW 18.7 % (10.5-14.5); WBC 10.8 thou/uL (4.0-11.0)
[2019-07-09 06:27] LABS: CREATININE 0.9 mg/dL (0.6-1.0); POTASSIUM 3.8 mmol/L (3.5-5.1)
[2019-07-09 06:33] LABS: CALCIUM 8.6 mg/dL (8.5-10.1)
--- NOTE | 2019-07-09 07:32 | NUR ---
NO CHANGES OVERNIGHT. PT REMAINS INTUBATED AND ON VENT. SEDATED WITH PROPFOL. PT OPENS EYES AND MOVES AROUND IN THE BED, BUT DOES NOT TRACK OR FOLLOW ANY COMMANDS. WILL CONTINUE TO MONITOR.
--- NOTE | 2019-07-09 11:51 | NUR ---
PT CONTINUES TO BE SEDATED AND INTUBATED. CLINICAL UPDATE SENT TO [facility]. TO FOLLOW INDICATED WITH DC PLANNING.
--- NOTE | 2019-07-09 13:15 | NUR ---
FAXED CLINICAL UPDATE TO [facility] SPOKE WITH SYDNI AT FACILITY AND SHE RECEIVED UPDATE. DP TO FOLLOW.
--- NOTE | 2019-07-09 19:30 | NUR ---
Report along with bedside check done with oncoming nurse. Pt is lightly sedated with Propofol. Sinus rhythm with first degree block. Maintained on the ventilator with no weaning trials per orders from Dr Spencer. Tolerating tube feedings. KUB of abdomen was done. Family member came by to visit today and is planning to come back tomorrow to visit.
[2019-07-09 22:09] LABS: INFLUENZA A Negative (Negative); INFLUENZA B Negative (Negative); METAPNEUMOVIRUS Negative (Negative); PARAINFLUENZA 1 Negative (Negative); PARAINFLUENZA 2 Negative (Negative); PARAINFLUENZA 3 Negative (Negative); RHINOVIRUS Negative (Negative); RSV A Negative (Negative); RSV B Negative (Negative)
[2019-07-10] VITALS (25 sets, daily range): BP systolic 85–121; BP diastolic 44–64
[2019-07-10 06:03] LABS: HEMATOCRIT 24.8 % (37.0-47.0); MCH 28.5 pg (26.0-34.0); MCHC 32.3 g/dL (28.0-37.0); MCV 88.2 fL (80.0-100.0); PLATELET COUNT 279 thou/uL (150-400); RBC 2.81 mil/uL (4.20-5.00); RDW 19.2 % (10.5-14.5); WBC 8.9 thou/uL (4.0-11.0)
[2019-07-10 06:06] LABS: CREATININE 0.9 mg/dL (0.6-1.0); POTASSIUM 3.9 mmol/L (3.5-5.1)
[2019-07-10 06:11] LABS: CALCIUM 8.5 mg/dL (8.5-10.1)
--- NOTE | 2019-07-10 07:00 | NUR ---
NO CHANGES OVERNIGHT. PT INTUBATED AND ON VENT. SEDATED ON PROPOFOL. PT'S MENTATION IS THE SAME; PT STILL DOES NOT TRACK OR FOLLOW ANY COMMANDS. WILL CONTINUE TO MONITOR.
[2019-07-10 07:12] LABS: ABSOLUTE NEUTROPHILS 6.1 thou/uL (1.4-8.2); METAMYELOCYTES 2 %; NUCLEATED RBCS 1 /100WBC; PLATELET ESTIMATE NORMAL
--- NOTE | 2019-07-10 10:20 | NUR ---
0930-MILTON CEDENO & DIMITRI IN.ORDERS NOTED.--VW
--- NOTE | 2019-07-10 11:40 | NUR ---
SPUTUM C&S SENT.THICK,TENACIOUS MUCOUS PLUG,ROMAN IN COLOR. IN TO SEE.--VW
--- NOTE | 2019-07-10 18:40 | NUR ---
RESTED MUCH MORE COMF AFTER FENTANYL EARLIER.STABLE,SLOWLY PROGRESSING TOWARD GOALS.--VW
[2019-07-11] VITALS (24 sets, daily range): BP systolic 86–140; BP diastolic 36–117
[2019-07-11 04:47] LABS: CALCIUM 8.4 mg/dL (8.5-10.1); CREATININE 0.9 mg/dL (0.6-1.0); POTASSIUM 3.9 mmol/L (3.5-5.1)
--- NOTE | 2019-07-11 04:49 | NUR ---
NO OVERNIGHT EVENTS. PT. IS RESTLESS AT TIMES, ATIVAN GIVEN PRN FOR INCREASED AGITATION. PT. STILL HAVING TROUBLE MANAGING SECRETIONS. ASSESSMENTS AND VITAL SIGNS CHARTED. MEDICATION TITRATION CHARTED. PT. STILL NOT FOLLOWING COMMANDS OR TRACKING WHICH WILL MAKE CPAP TRIAL DIFFICULT. CONTINUE TO FOLLOW POC. WILL CONTINUE TO MONITOR.
--- NOTE | 2019-07-11 12:43 | EKG ---
[address] [address] ELECTROCARDIOGRAM REPORT Name: TIM BAZZI Room #: 242-P ADM IN M.R.#: [id number] Admission: 07/04/19 Attend Phys: Sirisha Johnson MD Discharge: Date of : 60 Report #: [id number] THIS REPORT FOR: //name// [facility] Test Date: 2019-07-07 Test Time: 09:57:37 Pat Name: TIM BAZZI Department: Room: 242 P Gender: F Bead Inspector: ROSIE : 1960 Requested By: Geronimo Ayoub Order Number: [id number] MD: Goyo Loo Measurements Intervals [place] Rate: 97 P: 216 [place]: 172 QRS: -28 QRSD: 139 T: 159 QT: 422 QTc: 536 Interpretive Statements Sinus rhythm. Nonspecific intraventricular conduction delay Compared to ECG 02/05/2019 21:11:25 Electronically Signed On 07-11-2019 12:43:29 INFORMATION SYSTEMS TECHNICIAN by Goyo Loo [email or web address] <ELECTRONICALLY SIGNED> By: Goyo Loo MD 07/11/19 1243 D: [id number] 0957 Goyo Loo MD /NIESHA
--- NOTE | 2019-07-11 19:33 | NUR ---
ASSESSMENTS AND INTERVENTIONS DOCCUEMENTED. PATIENT REMAINS ON THE VENT WITH LIGHT SEDATION. DR. MORENO PAGED IN REGARDS TO RESTARTING PSYCH MEDS. ORDERS RECIEVED. PATIENT FOLLOWING COMMANDS FOR DR. MORENO. DR. BRAVO WANTING WEANING TRIAL. NIECE AT BEDSIDE. FAMILY EDUCATED ABOUT PATIENT INFORMATION AND HOW ONLY THE GUARDIAN CAN ACCESS THE PATIENTS MEDICAL INFORMATION. PATIENT BECOMING AGITATED WITH STIMULATION PATIENT STARTING WEANING TRIAL AT SHIFT CHANGE.
--- NOTE | 2019-07-11 21:28 | NUR ---
CPAP TRIAL DONE FROM 1930 TO 2029. PT. TOLERATED OK, BECAME TACHYPNIC AND TACHYCARDIC THEN WAS PLACED BACK ON PREVIOUS VENT SETTINGS. WILL CONTINUE TO MONITOR.
[2019-07-12] VITALS (25 sets, daily range): BP systolic 79–133; BP diastolic 39–60
--- NOTE | 2019-07-12 04:49 | NUR ---
NO OVERNIGHT EVENTS. PT. LESS RESTLESS THROUGHOUT THE NIGHT THAN PREVIOUS NIGHT. ASSESSMENTS AND VITAL SIGNS CHARTED. MEDICATION TITRATION CHARTED. PT. TO DO CPAP TRIAL DURING AM. CONITNUE TO FOLLOW POC. WILL CONTINUE TO MONITOR.
--- NOTE | 2019-07-12 10:00 | NUR ---
FAXED CLINICAL UPDATE TO [facility] SPOKE WITH RENZO IN ADM HE RECEIVED UPDATE. DP TO FOLLOW.
--- NOTE | 2019-07-12 10:49 | NUR ---
ATTEMPTED CPAP TRIAL THIS AM FROM 0930 TILL 1015. PATIENT STARTED BECOMING RESTLESS, TACHYCARDIC, AND TACHYPNIC. SEDATION WAS TURNED BACK UP AND PATIENT BACK ON VENT. PATIENT RESTING QUIETLY AT THIS TIME. NO FUTHER CONCERNS/ WILL CONTINUE TO MONITOR AND CARE PER PLAN OF CARE.
--- NOTE | 2019-07-12 13:44 | EEG ---
[facility] [place] [address] ELECTROENCEPHALOGRAM Name: TIM BAZZI Jane Room #: 242-P [facility] IN M.R.#: [id number] Admission: 07/04/19 Attend Phys: Sirisha Johnson MD Discharge: Date of : 60 Report #: [id number] THIS REPORT FOR: //name// CC: Kamaljit Johnson DATE OF SERVICE: 07/07/2019 This patient is being evaluated post-cardiac arrest. EEG was done by placing the electrode by standard 10-20 system of electrode placement. Both referential and sequential montages were used for recording. Background activity goes up to about 7 Hz and 30 microvolt. The patient is on propofol. Photic stimulation is unremarkable. Moderate amount of slowing is noticed on both sides. IMPRESSION: This patient's EEG demonstrates moderate amount of slowing, which is intermixed with background activity. No active epileptiform activity was noticed and well-defined cortical activity is present. Thank you very much for this referral. <ELECTRONICALLY SIGNED> By: Mando Quiroz MD 07/12/19 1344 1001 1014 Mando Quiroz MD /nt
[2019-07-12 22:09] LABS: ADENOVIRUS Negative (Negative)
[2019-07-13] VITALS (24 sets, daily range): BP systolic 97–167; BP diastolic 49–104
--- NOTE | 2019-07-13 04:13 | NUR ---
NO OVERNIGHT EVENTS. PT. RESTLESS AT TIMES THROUGHOUT THE NIGHT. ABLE TO SQUEEZE WITH BOTH HANDS. ASSESSMENTS AND VITAL SIGNS CHARTED. MEDICATION TITRATION CHARTED. PT. TO DO CPAP TRIAL TODAY. CONTINUE TO FOLLOW POC. WILL CONTINUE TO MONITOR.
[2019-07-13 09:13] LABS: BE(vivo) 2.7 mmol/L (-2 to +3); HCO3 28.7 mmol/L (22.0-26.0); PCO2 50.7 mmHg (35.0-45.0)
--- NOTE | 2019-07-13 10:17 | NUR ---
ON THE VENT WITH MINIMAL SEDATION, DURING SEDATION VACATION FOLLOWS COMMANDS. CAPAP TRIAL THIS MORNING AND ABG RESULTS OBTAINED AND WILL BE REPORTED TO MANAGER RN CASE WHEN HE ROUNDS (NO CRITICAL VALUES). TOLERATING TUBEFEEDING WITH MINIMAL RESIDUALS. BA WITH ADEQUATE OUTPUT. WILL CONTINUE WITH POC AND MONITOR CLOSELY.
--- NOTE | 2019-07-13 14:44 | NUR ---
DR. BRAVO ROUNDED AND OK FOR EXTUBATION ONCE STOMACH DECOMPRESSED PER OGT AND PROPOFOL WEANED OFF.
--- NOTE | 2019-07-13 15:22 | EKG ---
[address] [place] [address] ELECTROCARDIOGRAM REPORT Name: TIM BAZZI Room #: 242- ADM IN M.R.#: [id number] Admission: 07/04/19 Attend Phys: Sirisha Johnson MD Discharge: Date of : 60 Report #: [id number] THIS REPORT FOR: //name// [facility] Test Date: 2019-07-13 Test Time: 07:55:12 Pat Name: TIM BAZZI Department: Room: 242 P Gender: F Manager Simulation: ROSIE : 1960 Requested By: Mario Soto Order Number: [id number] MD: Kamaljit Segal Measurements Intervals [place] Rate: 87 P: 34 SC: 237 QRS: -40 QRSD: 136 T: 95 QT: 412 QTc: 496 Interpretive Statements Sinus rhythm Nonspecific IVCD with LAD Nonspecific T abnrm, anterolateral leads Compared to ECG 07/07/2019 09:57:37 No significant change was found Electronically Signed On 07-13-2019 15:22:17 MOLD LOFT WORKER by Kamaljit Segal [email or web address] <ELECTRONICALLY SIGNED> By: Kamaljit Segal MD, [facility] 07/13/19 1522 0755 0755 Kamaljit Segal MD, FAC /EPI
--- NOTE | 2019-07-13 16:42 | NUR ---
PATIENT EXTUBATED AT 1607 [address] RT. VIVI SHAY. THE PSYCHIATRIST NOTIFIED OF EXTUBATION REQUESTED. PATIENT COMFORTABLE ON 2L PER NC. ALERT AND ORIENTED AND DENIES CONCERNS AT THIS TIME.
--- NOTE | 2019-07-13 23:45 | NUR ---
ASSUMED CARE OF PT AT 1900. SINCE THEN, PT HAS HAD A FEW COUGHING EPISODES (NONPRODUCTIVE). AROUND 2300, PT STARTED TO C/O CHEST PAIN. Cheri DENIS CALENDER RUNNER CALLED; EKG ORDERED. GUAIFENESIN ORDERED, AND BEDSIDE SWALLOW TO BE PERFORMED PRIOR. EKG SHOWED SINUS RHYTHM WITH BORDERLINE PROLONGED QT INTERVAL. PT DID WELL WITH HONEY THICK LIQUIDS AND APPLESAUCE, BUT THE GUAIFENESIN CONSISTENCY WAS THINNER. PT DID NOT TOLERATE THE GUAIFENESIS WELL; ONLY 200 MG/400 MG GIVEN. WILL CONTINUE TO MONITOR.
[2019-07-14] VITALS (22 sets, daily range): BP systolic 93–126; BP diastolic 44–68
[2019-07-14 04:50] LABS: CALCIUM 9.3 mg/dL (8.5-10.1); CREATININE 0.9 mg/dL (0.6-1.0)
--- NOTE | 2019-07-14 07:30 | NUR ---
PT BECAME INCREASINGLY RESTLESS THROUGHOUT THE NIGHT. PT HAD BM THIS MORNING, AND WHEN TURNING TO GET CLEANED UP, R IJ CENTRAL LINE DRESSING BECAME LOOSE AND THE LINE POSSIBLY PULLED OUT A FEW CM. CENTRAL LINE REDRESSED AND CXR OBTAINED TO CONFIRM CORRECT PLACEMENT; LINE REMAINS IN PLACE. WILL CONTINUE TO MONITOR.
[2019-07-14 09:50] LABS: HEMATOCRIT 29.7 % (37.0-47.0); HEMOGLOBIN 9.3 gm/dL (12.0-15.0); MCH 28.1 pg (26.0-34.0); MCHC 31.3 g/dL (28.0-37.0); MCV 89.5 fL (80.0-100.0); PLATELET COUNT 362 thou/uL (150-400); RBC 3.31 mil/uL (4.20-5.00); RDW 18.6 % (10.5-14.5)
[2019-07-14 10:40] LABS: ABSOLUTE NEUTROPHILS 7.5 thou/uL (1.4-8.2)
[2019-07-14 10:41] LABS: ANISOCYTOSIS 1+; POLYCHROMASIA OCCASIONAL
--- NOTE | 2019-07-14 16:25 | EKG ---
[place] [address] [facility] [place] [address] ELECTROCARDIOGRAM REPORT Name: TIM BAZZI Room #: 242-P ADM IN M.R.#: [id number] Admission: 07/04/19 Attend Phys: Sirisha Johnson MD Discharge: Date of : 60 Report #: [id number] THIS REPORT FOR: //name// [facility] Test Date: 2019-07-13 Test Time: 23:27:28 Pat Name: TIM BAZZI Department: Room: 242 P Gender: F Track Sweeper: TIM : 1960 Requested By: Sariah Fernández Order Number: [id number] MD: Macho Coughlin Measurements Intervals [place] Rate: 99 P: 0 MT: 175 QRS: -38 QRSD: 137 T: 113 QT: 389 QTc: 500 Interpretive Statements Sinus rhythm left atrial enlargement LVH with IVCD, Nonspecific ST-T wave changes Compared to ECG 07/13/2019 07:55:12 no significant changes Electronically Signed On 07-14-2019 16:24:35 CLINICAL IMPLEMENTATION SPECIALIST by Macho Coughlin [email or web address] <ELECTRONICALLY SIGNED> By: Macho Coughlin MD 07/14/19 1624 26 26 Macho Coughlin MD /EPI
--- NOTE | 2019-07-14 18:48 | NUR ---
pt all over the bed, restless and impulsive. in afternoon with assistance of Dr. Soto, pt up to chair with use of gait belt. [employer] game on tv, rn awakening pt. rn monitoring pt closely to for her safety. pt shifting her self in chair and moving down in chair. repositioned several times with 2 assist. pt very unstable when standing. pt back to bed. later called out that she couldn't move. pt had call light wrapped around her neck and was only able to rock back and forth but not forward. call light removed. pt repositioned for comfort.
[2019-07-15] VITALS (18 sets, daily range): BP systolic 88–233; BP diastolic 44–165
[2019-07-15 05:36] LABS: ABSOLUTE NEUTROPHILS 5.4 thou/uL (1.4-8.2); EOSINOPHILS 3.7 % (0.0-3.0); HEMATOCRIT 29.3 % (37.0-47.0); HEMOGLOBIN 9.5 gm/dL (12.0-15.0); LYMPHOCYTES 23.2 % (24.0-44.0); MCH 28.6 pg (26.0-34.0); MCHC 32.4 g/dL (28.0-37.0); MCV 88.3 fL (80.0-100.0); MONOCYTES 7.7 % (1.0-8.0); PLATELET COUNT 382 thou/uL (150-400); POLYS 64.4 % (36.0-66.0); RBC 3.32 mil/uL (4.20-5.00); RDW 17.2 % (10.5-14.5); WBC 8.3 thou/uL (4.0-11.0)
[2019-07-15 05:43] LABS: CALCIUM 9.9 mg/dL (8.5-10.1); CREATININE 0.9 mg/dL (0.6-1.0); POTASSIUM 3.7 mmol/L (3.5-5.1)
--- NOTE | 2019-07-15 06:00 | NUR ---
PT SLEPT AT INTERVALS TONIGHT AFTER ATIVAN AND HALDOL GIVEN. CONT TO HAVE TREMORS AT TIMES AWAKE AND ALERT ORIENTED. DENIES PAIN. 700 CC UO THIS SHIFT SINUS RHYTHM. RENMAINS NPO. WILL CONT TO MONITOR.
--- NOTE | 2019-07-15 13:30 | NUR ---
PATIENT IN CHAIR WITH 2 ASSIST AND GAIT BELT. PATIENT WORKING WITH SPEECH THERAPY.
--- NOTE | 2019-07-15 14:13 | NUR ---
FOLLOWING FOR DC PLANNING. CLINICAL INFO REVIEWED. PT EXTUBATED 07/13 AND ON ROOM AITH WITH SATS IN HIGH 90'S TODAY. [facility]'D PT WITH COUGH NOTED WITH THIN LIQUIDS AND RECOMMNED MODIFIED DIET WITH THICKENED LIQUIDS AT PRESENT. PT/OT ORDERED. PT IS ALERT, ALITTLE CONFUSED AT TIMES. THERAPY EVALS ORDERED. LEFT CLINICAL UPDATE ON VM OF NIKHIL MARIE, PT'S BAND SAW OPERATOR FROM [facility] PUBLIC ADMIN OFFICE. REQUESTED DC PROCESS CONTROL PROGRAMMER UPDATE [facility] ADMISSIONS AND FAX UPDATE IF THEY REQUEST. ALSO REQUESTED DC PROCESS CONTROL PROGRAMMER LET FACILITY ADMISSIONS KNOW PT READY FOR RETURN IN NEXT COUPLE DAYS PER HOSPITALIST IN [facility] TODAY.
--- NOTE | 2019-07-15 18:43 | NUR ---
ASSESSMENTS AND INTERVENTIONS DOCCUMENTED. PATIENT IN BED AT SHIF CHANGE. PATIENT VERY RESTLESS EVEN WITH INTERVENTION. PATIENT ASKING TO BE MOVED TO THE CHAIR. PATIENT DID WELL WITH 2 ASSIST. PT WORKING WITH PATIENT. SPEECH EVALUATED PATIENT AND PATIENT WAS GIVEN A DIET. DR. BEE ROUNDING ON PATIENT. ORDERS FOR PSYCH MEDICATIONS RECIEVED. THE PLAN OF CARE IS TO RESUME MEDICATIONS AND TRANSFER TO CCU.
--- NOTE | 2019-07-16 03:09 | NUR ---
PT ORIENTED TO SELF. PT DISORIENTED TO THE SITUATION, PLACE AND TIME. PT CONSTANTLY TRYING TO GET OUT OF THE BED. PT ATTEMPTED TO SLIDE OUT OF THE BED. SCHEDULED HALDOL AND PRN ACTIVAN GIVEN BUT NO SUCESSFUL RESULTS. DR. LYNN WAS INFORMED ABOUT PT SITUATION AROUND 2315. HE GAVE AN ORDER FOR ONE TIME DOSE OF 5MG OF ZYPREXA. PT STILL RESTLESS AND TRYING TO SLIDE OUT AND CLIMB OUT OF THE BED. RESTRAINTS ORDER WERE GIVEN BY AYLEEN NEWMAN. PT HAS RIGHT SOFT WRIST AND LEFT LEG SOFT RESTRAINTS APPLIED. PT IS ON ROOMAIR AND VSS. PT TRANSFERRED TO CCU AROUND 0300 VIA PETE PENA AND THE CCU [employer]ER TRANSPORT. REPORT GIVEN TO PETE ALEGRIA.
[2019-07-16 05:53] LABS: HEMATOCRIT 30.5 % (37.0-47.0); HEMOGLOBIN 9.8 gm/dL (12.0-15.0); MCH 27.9 pg (26.0-34.0); MCV 87.2 fL (80.0-100.0); RBC 3.5 mil/uL (4.20-5.00); RDW 17.6 % (10.5-14.5); WBC 8.1 thou/uL (4.0-11.0)
[2019-07-16 05:55] LABS: CALCIUM 9.6 mg/dL (8.5-10.1); CREATININE 0.9 mg/dL (0.6-1.0); POTASSIUM 3.5 mmol/L (3.5-5.1)
[2019-07-16 08:00] VITALS: BP 102/62
--- NOTE | 2019-07-16 09:45 | EKG ---
[place] [address] [address] [facility] [place] [address] ELECTROCARDIOGRAM REPORT Name: TIM BAZZI Room #: 217-P ADM IN M.R.#: [id number] Admission: 07/04/19 Attend Phys: Sirisha Johnson MD Discharge: Date of : 60 Report #: [id number] THIS REPORT FOR: //name// [facility] Test Date: 2019-07-14 Test Time: 07:12:31 Pat Name: TIM BAZZI Department: Room: [facility] Gender: F Student Nurse: Rancho WATTS : 1960 Requested By: Sirisha Johnson Order Number: [id number] MD: Kamaljit Segal Measurements Intervals [place] Rate: 90 P: 70 GA: 217 QRS: -43 QRSD: 141 T: 100 QT: 412 QTc: 504 Interpretive Statements Sinus rhythm Prolonged GA interval Probable left atrial enlargement Nonspecific IVCD with LAD LVH with secondary repolarization abnormality Compared to ECG 07/13/2019 23:27:28 No significant change was found Electronically Signed On 07-16-2019 9:44:29 BEHAVIOR THERAPIST by Kamaljit Segal [email or web address] <ELECTRONICALLY SIGNED> By: Kamaljit Segal MD, [facility] 07/16/19 0944 0712 1 Kamaljit Segal MD, [facility] /EPI
--- NOTE | 2019-07-16 09:59 | NUR ---
FAXED CLINICAL UPDATE TO [facility] SPOKE WITH JOSE IN ADM HE RECEIVED UPDATE AND WILL BE ABLE TO SKILL PT. ANTICIPATE DC TODAY.
[2019-07-16 12:00] VITALS: BP 111/60
[2019-07-16] MEDS ORDERED: AUGMENTIN 875-1 EACH PO (12:18)
--- NOTE | 2019-07-16 12:56 | NUR ---
PLAN SKILLED CARE AT [facility] EM[facility] HOWEVER THEY CANNOT ACCEPT UNTIL RESTRAINT FREE 24 HOURS. POSSIBLE DC IN AM. CALL [phone] FAX ORDERS TO [phone] ARRANGE MARYJO ALVAREZ FROM [facility] [phone] AND CALL PATIENTS GUARDIAN [phone] FOR CONSENT TO DC.
[2019-07-16 16:00] VITALS: BP 100/63
--- NOTE | 2019-07-16 18:56 | NUR ---
PATIENT ASSISTED UP TO RESTROOM WITHOUT DYSPNEA. LESS SWAYING THIS EVENING. REMAINS IMPULSIVE AND FORGETFUL ABOUT GETTING UP. UP IN THE CHAIR FOR DINNER.
[2019-07-16 21:32] VITALS: BP 105/72
[2019-07-17 06:20] VITALS: BP 117/51
--- NOTE | 2019-07-17 09:21 | NUR ---
PSYCHE DOCTOR WAS HERE AND ORDERED ZYPREXIA.PATIENT HAS TREMORS AND VERY UNSTEADY WHEN WALKING.REFUSED SSI INSULIN.MONITOR SHOWS SR.POC CONTINUED.
--- NOTE | 2019-07-17 11:46 | NUR ---
CONSENT GIVEN FROM [facility] OFFICE FOR GUARDIANSHIP. PT TO RETURN HOME TO FACILITY SHE RESIDED PRIOR TO ADMIT. FACILITY AWARE OF DISCHARGE. TRANSPORTATION SET UP THROUGH [facility].
--- NOTE | 2019-07-17 12:23 | NUR ---
ATTEMPTED TO CALL REPORT TO [facility] THREE TIMES. PT LEFT FACILITY WITH [facility]. IV DISCONTINUED. TELEMONITOR OFF. CHART COPY SENT. DISCHARGE ORDERS AND SUMMARY FAXED TO FACILITY.
[2019-07-17] MEDS ORDERED: ZYPREXA 5 MG TAB5 M2 PO (13:10)
[2019-07-17] MEDS ORDERED: OLANZAPINE2.5 MG PO (13:10)
== END 2019-07-17 15:20 | DRG 870 ==
LOC: ER 12:26 → EROBS 15:38 → ICU 15:38 → 2N 07-16 02:45
PROVIDERS: Emergency Medicine; Hospitalist; Internal Medicine; Internal Medicine Pulmonary Disease; Nurse Practitioner; Nurse Practitioner Adult Health; Pediatrics; Specialist; ADMIT Internal Medicine
DX: A41.9 Sepsis, unspecified organism (principal); R65.21 Severe sepsis with septic shock; J69.0 Pneumonitis due to inhalation of food and vomit; J96.01 Acute respiratory failure with hypoxia; I46.9 Cardiac arrest, cause unspecified; J96.02 Acute respiratory failure with hypercapnia; F20.0 Paranoid schizophrenia; K56.7 Ileus, unspecified; F05 Delirium due to known physiological condition; I42.8 Other cardiomyopathies; I50.22 Chronic systolic (congestive) heart failure; J44.0 Chronic obstructive pulmonary disease with (acute) lower respiratory infection; J90 Pleural effusion, not elsewhere classified; N17.9 Acute kidney failure, unspecified; G93.1 Anoxic brain damage, not elsewhere classified; J44.1 Chronic obstructive pulmonary disease with (acute) exacerbation; F17.210 Nicotine dependence, cigarettes, uncomplicated; E11.9 Type 2 diabetes mellitus without complications; E03.9 Hypothyroidism, unspecified; E78.5 Hyperlipidemia, unspecified; I11.0 Hypertensive heart disease with heart failure; D53.9 Nutritional anemia, unspecified; R00.1 Bradycardia, unspecified; I95.9 Hypotension, unspecified; E87.6 Hypokalemia; I45.81 Long QT syndrome; R13.10 Dysphagia, unspecified; Z79.899 Other long term (current) drug therapy; Z85.71 Personal history of Hodgkin lymphoma; Z87.01 Personal history of pneumonia (recurrent); Z79.2 Long term (current) use of antibiotics
CPT/HCPCS: 10078; 10081; 10203; 85026

== ENCOUNTER 2019-07-17 21:26 | Emergency (ER) | payer OTHER ==
[~2019-07-17] VITALS: Ht 165.1 cm; Wt 77.1 kg
[~2019-07-17 21:26] MED LIST changes: +AUGMENTIN 875-1 EACH PO; +OLANZAPINE2.5 MG PO; +ZYPREXA 5 MG TAB5 M2 PO
[2019-07-17 22:23] LABS: ABSOLUTE NEUTROPHILS 3.6 thou/uL (1.4-8.2); BASOPHILS 1.1 % (0.0-2.0); EOSINOPHILS 2.8 % (0.0-3.0); HEMATOCRIT 32.6 % (37.0-47.0); HEMOGLOBIN 10.6 gm/dL (12.0-15.0); MCH 28.5 pg (26.0-34.0); MCHC 32.5 g/dL (28.0-37.0); MCV 87.7 fL (80.0-100.0); MONOCYTES 8.3 % (1.0-8.0); PLATELET COUNT 484 thou/uL (150-400); POLYS 50.8 % (36.0-66.0); RBC 3.72 mil/uL (4.20-5.00); RDW 17.7 % (10.5-14.5); WBC 7.1 thou/uL (4.0-11.0)
[2019-07-17 22:26] LABS: ANION GAP 7 mmol/L (7-16); BUN 10 mg/dL (7-18); CALCIUM 9.2 mg/dL (8.5-10.1); CHLORIDE 102 mmol/L (98-107); CO2 29 mmol/L (21-32); GLUCOSE 122 mg/dL (74-106); POTASSIUM 3.5 mmol/L (3.5-5.1); SODIUM 138 mmol/L (136-145)
[2019-07-17 22:36] LABS: ALBUMIN 2.9 g/dL (3.4-5.0); SGOT 15 U/L (15-37); SGPT 13 U/L (30-65); TOTAL BILIRUBIN 0.3 mg/dL (<0.1-1.0); TOTAL PROTEIN 9.5 g/dL (6.4-8.2); TROPONIN-I <0.06 ng/mL (<0.06)
[2019-07-17 23:16] LABS: HCO3 23.6 mmol/L (22.0-26.0); PCO2 38.9 mmHg (35.0-45.0); pH 7.401 (7.360-7.450); sO2 93.7 % (92.0-98.0)
[2019-07-18 02:13] VITALS: BP 110/58
--- NOTE | 2019-07-18 08:34 | EKG ---
[facility] [place] [address] ELECTROCARDIOGRAM REPORT Name: TIM BAZZI Room #: DEP YEHUDA Pinto#: [id number] Admission: 07/17/19 Attend Phys: Discharge: 07/18/19 Date of : 60 Report #: [id number] THIS REPORT FOR: //name// [facility] ED Test Date: 2019-07-17 Test Time: 21:40:32 Pat Name: TIM BAZZI Department: Room: Gender: F Flake Drier: charissa : 1960 Requested By: Steve Jaramillo Order Number: [id number] MD: Kamaljit Segal Measurements Intervals [place] Rate: 106 P: 174 OR: 145 QRS: -40 QRSD: 141 T: 129 QT: 383 QTc: 509 Interpretive Statements Sinus tachycardia IVCD, consider atypical RBBB LVH with IVCD and secondary repol abnrm Prolonged QT interval Compared to ECG 07/14/2019 07:12:31 Prolonged QT interval now present First degree AV block no longer present Electronically Signed On 07-18-2019 8:34:13 COLOR ADVISER by Kamaljit Segal [email or web address] <ELECTRONICALLY SIGNED> By: Kamaljit Segal MD, [facility] 07/18/19 0834 2140 Kamaljit Segal MD, [facility] /EPI
== END 2019-07-18 02:17 | disposition home or self-care (01) ==
LOC: ER 21:26
PROVIDERS: Emergency Medicine; Physician Assistant
DX: R41.82 Altered mental status, unspecified (principal); I11.0 Hypertensive heart disease with heart failure; I50.9 Heart failure, unspecified; E03.9 Hypothyroidism, unspecified; E78.5 Hyperlipidemia, unspecified; E11.9 Type 2 diabetes mellitus without complications; F20.0 Paranoid schizophrenia; F17.210 Nicotine dependence, cigarettes, uncomplicated; Z86.2 Personal history of diseases of the blood and blood-forming organs and certain disorders involving the immune mechanism

== ENCOUNTER → 2019-08-01 | Outpatient (CLI) | payer OTHER | LOC: RAD 07-30 12:57 → SPEECH 09:00 → RAD 11:11 | DX: R13.10 Dysphagia, unspecified (principal); R47.02 Dysphasia ==

== ENCOUNTER 2019-09-06 09:43 | Emergency (ER) | payer OTHER ==
[~2019-09-06] VITALS: Ht 162.6 cm; Wt 74.8 kg
[2019-09-06 12:28] VITALS: BP 122/51
--- NOTE | 2019-09-09 08:23 | EKG ---
[facility] [place] [address] ELECTROCARDIOGRAM REPORT Name: TIM BAZZI Room [facility] [id number] Admission: 09/06/19 Attend Phys: Discharge: 09/06/19 Date of : 60 Report #: [id number] THIS REPORT FOR: cc: Orlando Stephens MD, Dennis R MD Lundgren,Kamaljit Spann MD [facility] ~ THIS REPORT FOR: //name// [facility] ED Test Date: 2019-09-06 Test Time: 09:47:44 Pat Name: TIM BAZZI Department: Room: Gender: F Slide Developer: ANN : 1960 Requested By: Amadou Hernandez Order Number: [id number] MD: Kamaljit Segal Measurements Intervals [place] Rate: 91 P: -18 [place]: 161 QRS: -25 QRSD: 143 T: 84 QT: 448 QTc: 552 Interpretive Statements Sinus rhythm Left atrial enlargement LVH with IVCD and secondary repol abnrm Prolonged QT interval Compared to ECG 07/17/2019 21:40:32 No significant change was found Electronically Signed On 09-09-2019 8:22:07 TWENTY ONE DEALER by Kamaljit Segal [email or web address] <ELECTRONICALLY SIGNED> By: Kamaljit Segal MD, [facility] 09/09/19 0822 0947 Kamaljit Segal MD, [facility] /EPI
== END 2019-09-06 13:59 ==
LOC: ER
DX: R05 Cough (principal); J43.9 Emphysema, unspecified; I11.0 Hypertensive heart disease with heart failure; I50.9 Heart failure, unspecified; E11.9 Type 2 diabetes mellitus without complications; G47.00 Insomnia, unspecified; F17.210 Nicotine dependence, cigarettes, uncomplicated; F41.9 Anxiety disorder, unspecified; F20.9 Schizophrenia, unspecified

== ENCOUNTER 2019-09-08 10:48 | Inpatient (IN) | payer OTHER ==
[~2019-09-08] VITALS: Ht 162.6 cm; Wt 59.7 kg
[2019-09-08] VITALS (30 sets, daily range): BP systolic 93–131; BP diastolic 53–67
[2019-09-08 11:29] LABS: HEMATOCRIT 39.9 % (37.0-47.0); HEMOGLOBIN 12.7 gm/dL (12.0-15.0); MCH 28.1 pg (26.0-34.0); MCHC 31.8 g/dL (28.0-37.0); MCV 88.4 fL (80.0-100.0); PLATELET COUNT 214 thou/uL (150-400); RBC 4.52 mil/uL (4.20-5.00); RDW 15.8 % (10.5-14.5); WBC 6.1 thou/uL (4.0-11.0)
[2019-09-08 11:38] LABS: ANION GAP 10 mmol/L (7-16); BUN 13 mg/dL (7-18); CHLORIDE 105 mmol/L (98-107); CO2 30 mmol/L (21-32); CREATININE 1.1 mg/dL (0.6-1.0); GLUCOSE 188 mg/dL (74-106); POTASSIUM 3.1 mmol/L (3.5-5.1); SODIUM 145 mmol/L (136-145)
[2019-09-08 11:47] LABS: ALBUMIN 3.1 g/dL (3.4-5.0); SGOT 15 U/L (15-37); SGPT 13 U/L (30-65); TOTAL BILIRUBIN 0.3 mg/dL (<0.1-1.0); TOTAL PROTEIN 8.8 g/dL (6.4-8.2); TROPONIN-I <0.06 ng/mL (<0.06)
[2019-09-08 11:54] LABS: MAGNESIUM 2.1 mg/dL (1.8-2.4)
[2019-09-08 11:56] LABS: BE(vivo) -0.5 mmol/L (-2 to +3); HCO3 22.7 mmol/L (22.0-26.0); PCO2 32.6 mmHg (35.0-45.0); PO2 282.7 mmHg (80.0-100.0); pH 7.461 (7.360-7.450); sO2 99.7 % (92.0-98.0)
[2019-09-08 12:39] LABS: ABSOLUTE NEUTROPHILS 3.2 thou/uL (1.4-8.2); ANISOCYTOSIS 1+
--- NOTE | 2019-09-08 15:38 | NUR ---
VASCULAR ACCESS CONSULTED FOR CL PLACEMENT. CONSENT SIGNED BY DR POWERS MEDICAL NECCESSITY. PT INTUBATED. RIJ WAS WIDELY PATENT WITH USG. 6FR 25CM TL POWER JACC INSERTED TO 9CM EXTERNAL WITH BRISK BR. LINE SECURED STAT CXR ORDERED.
--- NOTE | 2019-09-08 17:11 | NUR ---
RIJ RELEASED FOR IMMEDIATE USE PER PROTOCOL TO DEUCE FREEMAN AFTER CXR CONFIRMATION
--- NOTE | 2019-09-08 19:07 | NUR ---
PT WAS ADMITTED TO ICU AROUND 1630. PT APPLIED TO MONITOR. VSS. INTUBATED AND SEDATED WITH 35 MCG OF PROPOFOL. PT HAS BA DRAINING CLEAR URINE. PT FROM [facility], ACCORDING TO PAPERWORK IS A DENIS OF [facility]. RIGHT IJ CENTRAL LINE IN PLACE. SR. OG TO LIWS. SCDS APPLIED. WILL CONTINUE TO MONITOR.
[2019-09-08] MEDS ORDERED: VITAMIN C500 M1 PO (19:15)
[2019-09-08] MEDS ORDERED: CLOZAPINE25 MG PO (19:17)
[2019-09-08] MEDS ORDERED: CLOZAPINE200 MG PO (19:17)
[2019-09-08] MEDS ORDERED: OLANZAPINE ODT5 MG PO (19:17)
[2019-09-08] MEDS ORDERED: HALDOL DEC100 MG/1 M IM (19:18)
[2019-09-08] MEDS ORDERED: HALDOL 0.5 MG0.5 M1 PO (19:18)
[2019-09-08 19:24] LABS: CALCIUM 8.5 mg/dL (8.5-10.1); CREATININE 0.9 mg/dL (0.6-1.0)
[2019-09-08 19:25] LABS: POTASSIUM 2.7 mmol/L (3.5-5.1)
[2019-09-09] VITALS (31 sets, daily range): BP systolic 68–140; BP diastolic 38–83
[2019-09-09 03:24] LABS: ABSOLUTE NEUTROPHILS 4.3 thou/uL (1.4-8.2); BASOPHILS 0.7 % (0.0-2.0); EOSINOPHILS 2.2 % (0.0-3.0); HEMATOCRIT 32.5 % (37.0-47.0); LYMPHOCYTES 30.5 % (24.0-44.0); MCHC 31.8 g/dL (28.0-37.0); MCV 87.9 fL (80.0-100.0); MONOCYTES 11.6 % (1.0-8.0); PLATELET COUNT 210 thou/uL (150-400); RDW 15.8 % (10.5-14.5); WBC 7.9 thou/uL (4.0-11.0)
[2019-09-09 03:35] LABS: HEMOGLOBIN 10.4 gm/dL (12.0-15.0)
[2019-09-09 03:36] LABS: ALBUMIN 2.4 g/dL (3.4-5.0); CALCIUM 8.3 mg/dL (8.5-10.1); CREATININE 0.9 mg/dL (0.6-1.0); POTASSIUM 3.1 mmol/L (3.5-5.1); TOTAL BILIRUBIN 0.4 mg/dL (<0.1-1.0); TOTAL PROTEIN 6.4 g/dL (6.4-8.2)
[2019-09-09 05:12] LABS: BE(vivo) 1.3 mmol/L (-2 to +3); HCO3 22.9 mmol/L (22.0-26.0); PCO2 26.9 mmHg (35.0-45.0); PO2 203.5 mmHg (80.0-100.0); pH 7.547 (7.360-7.450); sO2 99.5 % (92.0-98.0)
--- NOTE | 2019-09-09 06:33 | NUR ---
Hypotensive after turning to right side. Propofol gtt turned off. Pt repositioned onto back with improvement in BP.
--- NOTE | 2019-09-09 07:07 | NUR ---
Shift summary: Neuro status has waxed and waned over noc. Pt not following commands this am. SR 1st degree AV block. Potassium replacement ongoing. FiO2 titrated down to 30%. Lungs clear. OG to LIS with light green drng in small amt. Valencia with adequate uop. Report to oncoming shift. Plan of care reviewed and updated as able.
--- NOTE | 2019-09-09 08:40 | EKG ---
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: D : 1960 Requested By: Gabino Wilson Order Number: [id number] MD: Kamaljit Segal Measurements Intervals [place] Rate: 82 P: 54 IN: 218 QRS: -44 QRSD: 141 T: 78 QT: 458 QTc: 535 Interpretive Statements Sinus rhythm Prolonged IN interval IVCD LVH with IVCD and secondary repol abnrm Prolonged QT interval Compared to ECG 07/17/2019 21:40:32 No significant change was found Electronically Signed On 09-09-2019 8:39:08 LOGISTICS PROJECT MANAGER by Kamaljit Segal [email or web address] <ELECTRONICALLY SIGNED> By: Kamaljit Segal MD, [facility] 09/09/19 0839 1054 1054 Kamaljit Segal MD, [facility] /EPI
[2019-09-09 09:46] LABS: URINE BLOOD 1+ (Negative); URINE CLARITY CLEAR; URINE COLOR YELLOW; URINE GLUCOSE-RANDOM* NEGATIVE (Negative); URINE KETONES 1+ (Negative); URINE NITRITE-REFLEX NEGATIVE (Negative); URINE PROTEIN (DIPSTICK) 1+ (Negative); URINE SPECIFIC GRAVITY 1.015 (1.005-1.035)
[2019-09-09 09:50] LABS: URINE LEUKOCYTES-REFLEX 1+ (Negative)
[2019-09-09 09:54] LABS: AMP/METHAMP Negative (Negative); BARBITURATES Negative (Negative); BENZODIAZEPINES Negative (Negative); COCAINE Negative (Negative); METHADONE Negative (Negative); OPIATES POSITIVE (Negative); PCP Negative (Negative)
[2019-09-09 09:55] LABS: ICTOTEST (BILI CONFIRMATORY) Negative (Negative); URINE BILIRUBIN NEGATIVE (Negative)
[2019-09-09 10:11] LABS: SQUAMOUS 0-3 Few /LPF (0-3)
[2019-09-09 10:12] LABS: BACTERIA-REFLEX None Seen /HPF (None Seen); CASTS None Seen /LPF (None Seen); CRYSTALS None Seen /LPF (None Seen); URINE RBC 3-10 Few /HPF (0-2); URINE WBC-REFLEX 6-15 Few /HPF (0-5)
--- NOTE | 2019-09-09 10:36 | NUR ---
cm called, pa office spoke with viktoria, erin wanted to make sure pa knew she was here in icu on a vent. viktoria stated they were not notified over the weekend that she was here in the icu on vent, he provided after hours and weekend # [phone] to call if need consent for procedures and testing or any medical decision. day time hours can call viktoria or suraj at PA office. alvarez of [facility]. viktoria # [phone]. pt ltc at [facility], she was brought in my ems after she was found down. will cont following as needed for dc needs.
--- NOTE | 2019-09-09 16:40 | NUR ---
PT FOLLOWS COMMANDS ON SEATION VACATION. SQUEEZES HANDS ON COMMANDS AND WIGGLES TOES. LUNGS ARE CLEAR TO DIMINISHED. TURN Q 2 HOURS. REMAINS IN RESTRATINTS IS IMPULSIVE AT TIMES. REACHING FOR ET TUBE. ABDOMEN IS SOFT AND ROUND. BA IN PLACE. SCDS BILATERAL. NO ISUES OR CONERNS NOTED. WILL CONTINUE TO MONITOR AND ASSESS PER NURSING AND PROGRESS TOWARDS GOALS.
[2019-09-10] VITALS (22 sets, daily range): BP systolic 86–117; BP diastolic 43–59
[2019-09-10 04:36] LABS: CALCIUM 8.1 mg/dL (8.5-10.1); CREATININE 0.9 mg/dL (0.6-1.0)
[2019-09-10 04:41] LABS: POTASSIUM 2.8 mmol/L (3.5-5.1)
--- NOTE | 2019-09-10 04:52 | NUR ---
Shift summary: Uneventful night. Pt remains sedated on ventilator. Bilateral soft wrist restraints in place to prevent self extubation. Psych meds given via OG tube. Pt slept will. Will follow simple commands. Attempts to pull at ETT. VSS. Afebrile. K+ 2.8; replacing per electrolyte replacement protocol. No vent changes this shift. SaO2 100% on 30% FiO2. Portable chest xray obtained. No AM ABG ordered. Lungs clear. BS active. Blood sugars controlled, no coverage needed. OG to LIS w/ scant green drng. No nutrition ordered. Valencia with adequate uop. Plan of care reviewed and updated as able. Pt slowly progressing towards discharge goals.
--- NOTE | 2019-09-10 16:53 | NUR ---
PT REMAINS ON THE VENT. PT DOES NOT FOLLOW COMANDS. RESTING CALM ON SEDATION. LUNGS ARE COARSE. PT ABDOMEN IS ROUND AND SOFT BOWEL SOUNDS POSITIVIE. X4. BA CATH PRESENT. REMAINS IN RESTRAINTS BILATERAL. STARTED TUBE FEEDING TOLERATING WELL. NO RESIDUALS NOTED. SCDS ON BILATERAL. AND TURN Q2 HOURS PER NURSING. WILL CONTINUE TO ASSESS AND MONITOR PER NURSING
[2019-09-11] VITALS (28 sets, daily range): BP systolic 80–122; BP diastolic 42–64
[2019-09-11 05:21] LABS: HEMATOCRIT 32.5 % (37.0-47.0); HEMOGLOBIN 10.3 gm/dL (12.0-15.0); MCH 28.1 pg (26.0-34.0); MCHC 31.5 g/dL (28.0-37.0); MCV 89.1 fL (80.0-100.0); RBC 3.65 mil/uL (4.20-5.00); RDW 15.7 % (10.5-14.5); WBC 4.7 thou/uL (4.0-11.0)
[2019-09-11 05:38] LABS: CALCIUM 7.8 mg/dL (8.5-10.1); CREATININE 0.9 mg/dL (0.6-1.0); POTASSIUM 3.4 mmol/L (3.5-5.1)
--- NOTE | 2019-09-11 10:50 | NUR ---
heather huizar # [phone] with PA office called for update and tauza, information provided pt cont on vent. will cont following as needed for dc needs. pt ltc from [facility].
--- NOTE | 2019-09-11 18:33 | NUR ---
INTUBATED ON SEDATION. VERY AGITATED ON SEDATION VACATION SO NO WEAN TODAY. TOLERATING TUBE FEEDS.
[2019-09-12] VITALS (24 sets, daily range): BP systolic 82–109; BP diastolic 46–65
[2019-09-12 06:12] LABS: CALCIUM 7.7 mg/dL (8.5-10.1); CREATININE 0.9 mg/dL (0.6-1.0); HEMATOCRIT 29.7 % (37.0-47.0); HEMOGLOBIN 9.4 gm/dL (12.0-15.0); MCH 28.1 pg (26.0-34.0); MCHC 31.7 g/dL (28.0-37.0); MCV 88.7 fL (80.0-100.0); POTASSIUM 3.4 mmol/L (3.5-5.1); RBC 3.35 mil/uL (4.20-5.00); RDW 15.9 % (10.5-14.5); WBC 4.6 thou/uL (4.0-11.0)
--- NOTE | 2019-09-12 10:53 | NUR ---
Updated TF recommendations: vital high protein goal 50ml/hr
--- NOTE | 2019-09-12 13:50 | NUR ---
FAXED CLINICAL UPDATE TO [facility] RECEIVED CONFIRMATION AND LEFT MSG WITH RENZO IN ADM. DP TO FOLLOW.
--- NOTE | 2019-09-12 19:08 | NUR ---
PT REMAINS ON PROPOFOL FOR VENT MANAGEMENT. VERY AGITATED, COMBATIVE, THRASHING, AND ATTEMPTING TO SELF EXTUBATE WHEN PROPOFOL LIGHTENED. DISCUSSED WITH DR POWERS. HOME DOSES OF HALDOL RESTARTED ORDERED. PT UNABLE TO TOLERATE WEANING TRIALS TODAY. REMAINS IN BILAT WRIST RESTRAINTS. TUBE FEEDING FORMULA CHANGED ORDERED AND ADVANCING RATE Q4 HOURS. TOLERATING WELL. REPORT GIVEN TO TABBER RN.
[2019-09-13] VITALS (33 sets, daily range): BP systolic 86–190; BP diastolic 52–124
--- NOTE | 2019-09-13 04:35 | NUR ---
ASSUMED CARE OF PATIENT AT 0000. REMAINS SEDATED AND INTUBATED. SO S/S OF DISTRESS. PROPOFOL TITRATED DOWN SLIGHTLY, SEE DOCUMENTATION. NO CONCERNS AT THIS TIME. PROGRESSING SLOWLY TOWARDS POC GOALS.
[2019-09-13 05:51] LABS: CALCIUM 8.3 mg/dL (8.5-10.1)
[2019-09-13 08:52] LABS: BE(vivo) 0.2 mmol/L (-2 to +3); HCO3 25.2 mmol/L (22.0-26.0); PCO2 42.2 mmHg (35.0-45.0); PO2 65.4 mmHg (80.0-100.0); pH 7.394 (7.360-7.450); sO2 92.8 % (92.0-98.0)
--- NOTE | 2019-09-13 08:58 | NUR ---
PT SELF EXTUBATED. RN WAS IN ROOM AND PRESENT AT TIME OF SELF EXTUBATION. RN CALLED FOR ADDITIONAL HELP NEEDED. CODE BLUE WAS CALLED LOST AIRWAY HOWEVER, PT NEVER LOST PULSE AND RESPIRATORY THERAPIST WAS ON UNIT WELL HOSPITALIST AND THEY RESPONDED IMMEDIATELY . IT WAS DECIDED PER DR TO PUT PT ON NC AND DRAW A BLOOD GAS. PT'S O2 SAT NEVER FELL BELOW 88% AND WENT TO 95% WHEN NC WAS PLACED. ABG'S DRAWN. PT'S OWN HOSPITALIST ROUNDED DURING THIS EPISODE AND DECIDED TO LEAVE PT EXTUBATED AND CLOSELY MONITOR PT.
--- NOTE | 2019-09-13 10:17 | NUR ---
PT SELF EXTUBATED THIS AM AROUND 0845 AND SUPPORTED BY RNS AND RT BREATHING ON OWN. ABG WNL AND CURRENTLY ON 3 LITERS NC. REMAINS IN RESTRAINTS FOR INPULSIVITY. RN TRIED UNRESTRAINED AFTER EXTUBATION AND PT OUT OF BED WITHOUT ASSIST AND PULLING AT LINES. CLINCIAL UPDATE TO NIKHIL MARIE FROM [facility] PA OFFICE THEY ARE PT'S GUARDIAN. REQUESTED DC LINING FOLDER UPDATED [facility] ADMISSIONS. LIKELY NO W/E DC.
--- NOTE | 2019-09-13 16:42 | NUR ---
FAXED CLINICAL UPDATE TO [facility] RECEIVED CONFIRMATION AND LEFT MSG WITH JOSE DIAZ) AT FACILITY. DP TO FOLLOW.
--- NOTE | 2019-09-13 22:24 | NUR ---
BEDSIDE NURSING SWALLOW STUDY COMPLETED PER ORDERS, PATIENT TOLERATED HONEY THICK TEA, REFUSED PO MEDICATIONS.
--- NOTE | 2019-09-13 22:35 | NUR ---
PATIENT INTERMITTENTLY COMBATIVE ONE MOMENT AND CALM/THANKFUL THE NEXT. PULLED UP IN BED MULTIPLE TIMES. PATIENT SCOOTED DOWN IN BED AND PULLED OUT CATHETER WITH BALLOON STILL INFLATED. EDUCATED ON THE IMPORTANCE OF POTENTIAL INJURY FROM ACTIONS. ADDITIONAL PAD PLACED UNDERNEATH PATIENT, WILL MONITOR FOR BLEEDING. NO SIGN OF ACUTE DISTRESS AT THIS TIME. WILL CONTINUE TO MONITOR.
[2019-09-14 01:45] VITALS: BP 190/81
[2019-09-14 02:10] VITALS: BP 192/76
[2019-09-14 02:59] VITALS: BP 185/77
[2019-09-14 04:05] VITALS: BP 185/83
[2019-09-14 04:27] VITALS: BP 150/63
[2019-09-14 06:20] LABS: ABSOLUTE NEUTROPHILS 7.3 thou/uL (1.4-8.2); BASOPHILS 0.5 % (0.0-2.0); EOSINOPHILS 0.2 % (0.0-3.0); HEMATOCRIT 34.7 % (37.0-47.0); HEMOGLOBIN 10.6 gm/dL (12.0-15.0); LYMPHOCYTES 19.4 % (24.0-44.0); MCH 27.2 pg (26.0-34.0); MCHC 30.6 g/dL (28.0-37.0); MCV 88.7 fL (80.0-100.0); MONOCYTES 10.5 % (1.0-8.0); POLYS 69.4 % (36.0-66.0); RBC 3.92 mil/uL (4.20-5.00); RDW 15.9 % (10.5-14.5); WBC 10.5 thou/uL (4.0-11.0)
[2019-09-14 06:23] LABS: CALCIUM 8.6 mg/dL (8.5-10.1); CREATININE 1.1 mg/dL (0.6-1.0); POTASSIUM 3.7 mmol/L (3.5-5.1)
[2019-09-14 06:25] LABS: PLATELET COUNT 312 thou/uL (150-400)
--- NOTE | 2019-09-14 07:07 | NUR ---
ASSUMED CARE OF PATIENT AT 1900, PATIENT VERY AGRESSIVE TOWARDS STAFF INTERMITTENTLY. ONE MOMENT PLEASEANT AND THE NEXT VERBALLY ABUSIVE TOWARDS STAFF. PATENT TOLD MULTIPLE STAFF MEMBERS "LEAVE MY ROOM, [facility] PATIENT EDUCATED THAT IT IS NOT APPROPRIATE BEHAVIOR. RESTRAINTS PRESENT BILATERALLY, PATIENT TRYING TO BITE RESTRAINTS. REFUSED PO MEDICATION OVER NIGHT. LACTIC LABORATORY COMPLETED THIS MORNING, LACTIC 4.1 SIGNIFICANT INCREASE FROM PREVIOUS. THERES NO INCREASE IN WBC COUNT. PATIENT VOIDING WELL POST SELF-CATHETER REMOVAL, NO SIGN OF BLEEDING. SINUS TACHYCARDIA ON MEDICAL RECORDS SECRETARY. NO SIGN OF ACUTE DISTRESS NOTED AT THIS TIME. WILL CONTINUE TO MONITOR.
--- NOTE | 2019-09-14 10:04 | NUR ---
ASSUMED CARE AT 0700 ON 09/14/19. PT ASSESSMENT COMPLETED AND DOCUMENTED, REPORT GIVEN TO PETE RODGERS AT 0830.
--- NOTE | 2019-09-14 10:46 | NUR ---
REMOVED RIGHT WRIST RESTRAINT TO ASSIST PATIENT WITH MEAL. IMMEDIATELY PULLED OUT RIGHT TRIPLE LUMEN IJ. NO BLEEDING TO SITE. RESTRAINT REAPPLIED. BEDSIDE SWALLOW STUDY COMPLETED WITH SMALL SIPS WATER. TOLERATED WELL, NO CHOKING NOTED WITH SMALL SIPS THIN LIQUIDS. ATE 100% OF CHOCOLATE PUDDING AND YOGURT. VERY PLEASANT AND COOPERATIVE AT TIMES AND THEN BECOMES INPULSIVE AND BELIGERANT. PLACED CALL TO HOSPITALIST TO INFORM OF DISCONTINUED IJ.
--- NOTE | 2019-09-14 11:06 | NUR ---
REMOVED O2 PER DR. POWERS ORDER. WILL CALL [facility] TO SEE IF PATIENT COULD BE DISCHARGED BACK TO FACILITY. O2 SAT REMAINING >90% ON ROOM AIR.
[2019-09-14 16:25] VITALS: BP 138/73
--- NOTE | 2019-09-14 17:30 | NUR ---
RESTRAINTS REMOVED AND ASSITED TO BATHROOM VOIDED CLEAR YELLOW URINE. AMBULATED WITH SBA 150FT AND SITTING IN CHAIR. ATE 50% OF DINNER FED SELF. TOOK HALDOL BUT REFUSED ALL OTHER MEDS AND BLOOD SUGAR CHECK. TOREY FREEMAN
[2019-09-15 01:00] VITALS: BP 137/67
[2019-09-15 01:05] VITALS: BP 137/67
--- NOTE | 2019-09-15 04:01 | NUR ---
Pt has rested poorly through the night, yet denies that she is tired or lacking sleep. She is impulsive, restless, easily irritated and alternates between declining cares/meds then agreeing to take them. Pt states she wants to return to her facility, then relents, saying that it isn't her home. Her vitals were stable, her assessment is benign, she (finally) accepted her meds, no difficulty noted with swallowing. She is currently as close to baseline as possible, she has no IV access, no tele monitoring and could likely be discharged to more familiar surroundings at her facility with good results.
[2019-09-15 05:03] LABS: CALCIUM 8.5 mg/dL (8.5-10.1); POTASSIUM 3.1 mmol/L (3.5-5.1)
[2019-09-15 05:06] LABS: HEMATOCRIT 36.4 % (37.0-47.0); HEMOGLOBIN 11.3 gm/dL (12.0-15.0); MCH 27.4 pg (26.0-34.0); MCV 88.4 fL (80.0-100.0); RBC 4.12 mil/uL (4.20-5.00); RDW 15.5 % (10.5-14.5); WBC 8.8 thou/uL (4.0-11.0)
[2019-09-15 08:00] VITALS: BP 135/70
--- NOTE | 2019-09-15 19:51 | NUR ---
ASSUMED CARE OF PT APPROX 1430. PT A&OX4, PT REFUSES VITALS, ACCU CHECKS AND MEDICATION. PT HAS AUDITORY AND VISUAL HALLUCINATIONS. PATIENT HAS 1:1 SITTER. PT HAS BEEN ENCOURAGED TO REMAIN SEATED DUE TO UNSTEADY GAIT AND PATIENT REMAINS UNCOOPERATIVE.
--- NOTE | 2019-09-16 03:28 | NUR ---
PATIENT AOX3 MAKES NEEDS KNOWN. PATIENT AMBULATES WITH UNSTEADY GAITS.PATIENT REFUSED HS MEDICATION, AND BLOOD PRESSURE THIS SHIFT. PATIENT AGREED ON BLOOD SUGAR CHECK, BLOOD SUGAR WAS 110 AT AROUND 2300. PATIENT ENCOURAGED FLUIDS. PATIENT IN BED ASLEEP AT THIS TIME BREATHING REGULAR AND UNLABOURED.
[2019-09-16 07:55] VITALS: BP 155/82
--- NOTE | 2019-09-16 10:57 | NUR ---
FOLLOWING FOR DC PLANNING. PT TRANSFERRED OUT OF ICU TO M/S OVER W/E AND IS ON ROOM AIR THIS AM. UPDATED CLINICAL TO NIKHIL MARIE AT [facility] PA OFFICE AND INFORMED MAY BE READY FOR DC BACK TO [facility] TODAY AND INFORMED WILL UPDATE AFTER DISCUSS WITH HOSPITALIST ON CASE. 4W MSN CM UPDATED.
--- NOTE | 2019-09-16 14:08 | NUR ---
Assumed pt care at 7am.Pt in bed sleeping without distress s/s.Ns supervisior notified about siiter.Noc shift tech came around 730am to sit till 9AM.One of the tech replaced outgoing sitter around 10am.Dr Koenig and Cresencio here.Updates given.Pt now on mechanical soft diet but never woke up to eat nor take meds. Sitter at bs at alltimes.Will continue to monitor.
[2019-09-16 19:34] VITALS: BP 104/62
--- NOTE | 2019-09-17 01:25 | NUR ---
PATIENT AOX3 CONFUSED AND FORGETFUL. PATIENT TOOK MOST OF HER HS MEDS. PATIENT REFUSED IV INSERTION.PATIENT ENCOURAGED FLUIDS. PATIENT IS ON 1:1 D/T PATIENT BEING IMPULSIVE AND A FALL RISK. PATIENT AMBULATES WITH UNSTEADY GAITS. PATIENT INCONTINENT THIS SHIFT PERICARE AND BARRIER CREAM APPLIED NEEDED. PATIENT IN BED ASLEEP AT THIS TIME BREATHING REGULAR AND UNLABOURED.
[2019-09-17 04:20] LABS: HEMATOCRIT 34.6 % (37.0-47.0); HEMOGLOBIN 11.1 gm/dL (12.0-15.0); MCH 28.2 pg (26.0-34.0); MCHC 32.1 g/dL (28.0-37.0); MCV 87.7 fL (80.0-100.0); RBC 3.94 mil/uL (4.20-5.00); RDW 15.3 % (10.5-14.5)
[2019-09-17 04:40] LABS: CALCIUM 7.9 mg/dL (8.5-10.1); CREATININE 0.8 mg/dL (0.6-1.0); POTASSIUM 3.3 mmol/L (3.5-5.1)
[2019-09-17 07:35] VITALS: BP 119/51
[2019-09-17 09:46] VITALS: BP 119/51
--- NOTE | 2019-09-17 11:22 | NUR ---
Assumed pt care at 7am.Assessment completed.vss.Pt in bed resting and cooperate with staff today.Took meds and ate breakfast.Sitter at bs till 1030. Pt took shower with minimal assist.Dr Dupont here,he said pt will be dc to [facility] today.No agitation or restlessness noted at present.Will continue to monitor.
[2019-09-17] MEDS ORDERED: PREDNISONE 10 M10 M1 PO (12:29)
--- NOTE | 2019-09-17 13:21 | NUR ---
PATIENT CLEARED FOR DISCHARGE PER ATTENDING. PATIENT DISCHARGING BACK TO [facility]. PATIENT DISCHARGE ORDERS FAXED TO [facility], [facility] ADMISSIONS. CALL PLACED TO [facility] TO NOTIFY. VERIFIED ORDERS RECEIVED. PER [facility] CIFUENTES TO TRANSPORT PATIENT, [id number] HOURS. DISCHARGE ORDERS FAXED TO PATIENTS KEVIN MARIE. UNIT SW TO NOTIFY KEVIN. CONTACT NUMBER FOR REPORT [phone]. CHART COPY COMPLETED PER OFFICE PROFESSIONALS.
--- NOTE | 2019-09-17 13:54 | NUR ---
CARE TEAM INDICATED THAT PT IS MEDICALY STABLE TO DISCHARGE BACK TO [facility] THIS DAY. NIKHIL WITH PA OFFICE IS AWARE AND CONSENTS. CHART COPY ORDERED. ORDERS FAXED. TRANSPORT ARRANGED BETWEEN 1600 AND 1800. NO OTHER CM INTERVENTION INDICATED. CASE CLOSED.
--- NOTE | 2019-09-18 14:09 | NUR ---
F/U WITH PA'S OFFICE SPOKE WITH SURVEY FIELD TECHNICIAN THEY RECEIVED DC ORDERS/SUMMARY.
== END 2019-09-17 17:33 | DRG 207 ==
LOC: ER 10:48 → EROBS 12:55 → ICU 12:55 → 4W 09-15 14:45
PROVIDERS: Emergency Medicine; Internal Medicine; Internal Medicine Pulmonary Disease; Nurse Practitioner Family; Pediatrics; ADMIT Hospitalist
PROC: 5A1955Z Respiratory Ventilation, Greater than 96 Consecutive Hours (ICD-10-PCS; principal; 2019-09-08)
PROC: 0BH17EZ Insertion of Endotracheal Airway into Trachea, Via Natural or Artificial Opening (ICD-10-PCS; principal; 2019-09-08)
PROC: 02HV33Z Insertion of Infusion Device into Superior Vena Cava, Percutaneous Approach (ICD-10-PCS; principal; 2019-09-08)
DX: J96.01 Acute respiratory failure with hypoxia (principal); G92 Toxic encephalopathy; J91.8 Pleural effusion in other conditions classified elsewhere; I42.8 Other cardiomyopathies; F20.0 Paranoid schizophrenia; J43.9 Emphysema, unspecified; E11.9 Type 2 diabetes mellitus without complications; I50.9 Heart failure, unspecified; E03.9 Hypothyroidism, unspecified; E78.5 Hyperlipidemia, unspecified; F41.9 Anxiety disorder, unspecified; G47.00 Insomnia, unspecified; F17.210 Nicotine dependence, cigarettes, uncomplicated; E87.6 Hypokalemia; R22.2 Localized swelling, mass and lump, trunk; I11.0 Hypertensive heart disease with heart failure; I08.0 Rheumatic disorders of both mitral and aortic valves; T40.2X5A Adverse effect of other opioids, initial encounter; I95.9 Hypotension, unspecified; Z87.01 Personal history of pneumonia (recurrent); Z85.72 Personal history of non-Hodgkin lymphomas; Z79.4 Long term (current) use of insulin; Z79.899 Other long term (current) drug therapy; Z79.82 Long term (current) use of aspirin; Z79.51 Long term (current) use of inhaled steroids; Y92.89 Other specified places as the place of occurrence of the external cause
CPT/HCPCS: 10047; 10078

== ENCOUNTER 2020-01-04 09:07 | Inpatient (IN) | payer OTHER ==
[2020-01-04] VITALS (11 sets, daily range): BP systolic 116–151; BP diastolic 62–88
[~2020-01-04] VITALS: Ht 165.1 cm; Wt 64.1 kg
[~2020-01-04 09:07] MED LIST changes: +CLOZAPINE200 MG PO; +HALDOL 0.5 MG0.5 M1 PO; +HALDOL DEC100 MG/1 M IM; +OLANZAPINE ODT5 MG PO; +PREDNISONE 10 M10 M1 PO; +VITAMIN C500 M1 PO
--- NOTE | 2020-01-04 09:32 | NUR ---
DR. GONZALEZ BEDSIDE FOR EXAM.
--- NOTE | 2020-01-04 09:52 | NUR ---
IV ACCESS TEAM TO COME TO ER FOR IV INSERTION.
[2020-01-04] MEDS ORDERED: LIPITOR 20 MG T20 M1 PO (09:58)
[2020-01-04] MEDS ORDERED: ASA81BEC PO (09:58)
[2020-01-04] MEDS ORDERED: FERROUS SULFAT325 MG PO (09:59)
[2020-01-04] MEDS ORDERED: LEVO-T100 MCG PO (09:59)
[2020-01-04] MEDS ORDERED: CARVEDILOL12.5 MG PO (10:00)
[2020-01-04] MEDS ORDERED: VITAMIN C500 M1 PO ×2 (10:00→13:53)
[2020-01-04] MEDS ORDERED: HALOPERIDOL 2 MG2 M1 PO (10:01)
[2020-01-04] MEDS ORDERED: CORRECTOL5 M1 PO (10:01)
[2020-01-04] MEDS ORDERED: BENZTROPINE ME0.5 MG PO (10:01)
[2020-01-04] MEDS ORDERED: CLOZAPINE100 M1 PO (10:02)
[2020-01-04] MEDS ORDERED: CLOZAPINE25 MG PO (10:03)
[2020-01-04] MEDS ORDERED: DIVALPROEX SOD250 MG PO (10:03)
[2020-01-04] MEDS ORDERED: OLANZAPINE5 M1 PO (10:04)
--- NOTE | 2020-01-04 10:07 | NUR ---
IV ACCESS TEAM HERE TO INSERT IV. RT HERE PROVIDING TRMT..
[2020-01-04 10:11] LABS: BE(vivo) 1.9 mmol/L (-2 to +3); HCO3 27.3 mmol/L (22.0-26.0); PCO2 46.5 mmHg (35.0-45.0); PO2 91.4 mmHg (80.0-100.0); pH 7.387 (7.360-7.450); sO2 96.8 % (92.0-98.0)
[2020-01-04 11:04] LABS: HEMATOCRIT 30.1 % (37.0-47.0); HEMOGLOBIN 9.8 gm/dL (12.0-15.0); MCHC 32.4 g/dL (28.0-37.0); MCV 89.3 fL (80.0-100.0); RBC 3.37 mil/uL (4.20-5.00); RDW 17.7 % (10.5-14.5); WBC 7.4 thou/uL (4.0-11.0)
[2020-01-04 11:12] LABS: ANION GAP 2 mmol/L (7-16); BUN 18 mg/dL (7-18); CALCIUM 8.5 mg/dL (8.5-10.1); CHLORIDE 104 mmol/L (98-107); CO2 36 mmol/L (21-32); CREATININE 1.1 mg/dL (0.6-1.0); GLUCOSE 91 mg/dL (74-106); POTASSIUM 4.1 mmol/L (3.5-5.1); SODIUM 142 mmol/L (136-145)
[2020-01-04 11:20] LABS: TROPONIN-I <0.06 ng/mL (<0.06)
--- NOTE | 2020-01-04 11:53 | EKG ---
[facility] [place] [address] ELECTROCARDIOGRAM REPORT Name: TIM BZAZI [facility] [id number] Admission: 01/04/20 Attend Phys: Discharge: Date of : 60 Report #: [id number] THIS REPORT FOR: cc: Orlando Stephens MD, Dennis R MD Couchonnal,Goyo Seals MD ~ THIS REPORT FOR: //name// [facility] ED Test Date: 2020-01-04 Test Time: 09:24:35 Pat Name: TIM BAZZI Department: Room: Gender: F Banking Teacher: TIFF : 1960 Requested By: Amadou Hernandez Order Number: [id number] : Goyo Loo Measurements Intervals [place] Rate: 97 P: 32 [place]: 152 QRS: -38 QRSD: 144 T: 145 QT: 412 QTc: 524 Interpretive Statements Sinus rhythm LVH with IVCD, LAD and secondary repol abnrm Compared to ECG 09/08/2019 10:54:31 Electronically Signed On 01-04-2020 11:52:18 CDT by Goyo Loo [email or web address] <ELECTRONICALLY SIGNED> By: Goyo Loo MD 01/04/20 1152 3 3 Goyo Loo MD /EPI
--- NOTE | 2020-01-04 13:30 | NUR ---
RT TO ER FOR PLACEMENT OF BIPAP ON PATIENT
[2020-01-04] MEDS ORDERED: CARVEDILOL6.25 M1 PO (13:54)
[2020-01-04] MEDS ORDERED: DEPAKOTE ER500 M1 PO (13:55)
[2020-01-04] MEDS ORDERED: HUMALOG100 UNIT/1 SUBQ ×2 (13:56→13:57)
[2020-01-04] MEDS ORDERED: IPRAT-ALBUT 0.5-3 ML INH (13:58)
--- NOTE | 2020-01-04 15:49 | NUR ---
ASSUMED CARE OF PT ON ARRIVAL TO UNIT AT APPROX 1430. PT ALERT AND ORIENTED X3 IN MOD RESP DISTRESS. ACCESSORY MUSCLE USE. REQUIRING 2L NC. EXP WHEEZES IN ALL LUNG SIBLEY. URINARY URGENCY, FEMALE EXT DEVICE PLACED. PT REPORTS STARTING TO FEEL BETTER. DENIES PAIN. ASKING IF SHE CAN HAVE FOOD. SINUS TACHYCARDIA ON TELEMETRY. AFEBRILE. ENHANCED PRECAUTIONS IN PLACE UNTIL COVID-19 RULED OUT. WILL CONT TO MONITOR.
[2020-01-04 21:30] LABS: URINE BILIRUBIN NEGATIVE (Negative); URINE BLOOD 1+ (Negative); URINE CLARITY CLEAR; URINE COLOR YELLOW; URINE GLUCOSE-RANDOM* NEGATIVE (Negative); URINE KETONES NEGATIVE (Negative); URINE LEUKOCYTES-REFLEX TRACE (Negative); URINE NITRITE-REFLEX NEGATIVE (Negative); URINE PROTEIN (DIPSTICK) NEGATIVE (Negative); URINE UROBILINOGEN 0.2 E.U./dl (0.2-1.0)
[2020-01-04 21:38] LABS: BACTERIA-REFLEX 1-9 Few /HPF (None Seen); CASTS None Seen /LPF (None Seen); CRYSTALS None Seen /LPF (None Seen); MUCUS None Seen strn/LPF (None Seen); SQUAMOUS >10 Many /LPF (0-3); URINE RBC None Seen /HPF (0-2); URINE WBC-REFLEX None Seen /HPF (0-5)
[2020-01-05] VITALS (8 sets, daily range): BP systolic 12–139; BP diastolic 45–79
--- NOTE | 2020-01-05 00:56 | NUR ---
PT FIRST COVID SWAB CAME BACK NEGATIVE 195401/04/20. NOTIFIED CHARGE NURSE AND CONTROL AND RECOVERY COMBAT RESCUE. PT IS FROM [facility] AND WILL REQUIRE SECOND SWAB DURING THE DAY ON 01/05/20.
--- NOTE | 2020-01-05 05:11 | NUR ---
PT WAS VERY RESTLESS UNTIL APPROX 2300. CALLED AYLEEN MANN AND RECEIVED ORDERS TO RESTART CLOZAPINE AND MODERATE SCALE INSULIN. PT ACCU CHECK AT 2100 WAS 334. PT HAS EXTERNAL FEMALE CATH IN PLACE. OVER THE SHIFT PT REMOVED HER BLOOD PRESSURE CUFF AND 02 SENSOR MULTIPLE TIMES. RE-EDUCATION AND REDIRECTION WORKED MINIMALLY. FOLLOWING POC WITH IVPB ANTIBIOTICS AND SUPPLEMENTAL OXYGEN.
[2020-01-05 05:30] LABS: ABSOLUTE NEUTROPHILS 5.2 thou/uL (1.4-8.2); BASOPHILS 0.2 % (0.0-2.0); HEMATOCRIT 32.6 % (37.0-47.0); HEMOGLOBIN 10.5 gm/dL (12.0-15.0); LYMPHOCYTES 9.5 % (24.0-44.0); MCH 28.3 pg (26.0-34.0); MCHC 32.2 g/dL (28.0-37.0); MONOCYTES 10.2 % (1.0-8.0); PLATELET COUNT 291 thou/uL (150-400); POLYS 80.1 % (36.0-66.0); WBC 6.5 thou/uL (4.0-11.0)
[2020-01-05 05:48] LABS: ALBUMIN 2.3 g/dL (3.4-5.0); CREATININE 1.2 mg/dL (0.6-1.0); MAGNESIUM 1.9 mg/dL (1.8-2.4); POTASSIUM 3.8 mmol/L (3.5-5.1); TOTAL BILIRUBIN 0.3 mg/dL (0.2-1.0); TOTAL PROTEIN 7.3 g/dL (6.4-8.2)
--- NOTE | 2020-01-05 10:00 | NUR ---
PT SLIGHTLY LETHARGIC, ALERT TO SELF, PLACE AND YEAR. ASSISTED PT WITH BREAKFAST, REQUESTED COFFEE (DECAF GIVEN). ENCOURAGED PT TO ASSIST IN CARE. PUREWICK IN PLACE, FUNCTIONING PROPERLY. VITAL SIGNS STABLE, AFEBRILE. ALL QUESTIONS ANSWERED, PT WANTS TO GO HOME, DISCUSSED THE NEED FOR ANTIBIOTICS, PT/OT AND ST. DR. MALLORY REQUESTED A CALL TO BE PLACED TO NOÉ MEHTA REGARDING PT ISOLATION AND NEGATIVE SWAB- DISCUSSED WITH NOÉ PT VITAL SIGNS, TEMP AND CHEST XRAY. NOÉ HYMAN'D PT TO BE DISCONTINUED FROM COVID ISOLATION PRECAUTIONS.
--- NOTE | 2020-01-05 18:23 | NUR ---
ASSUMMED CARE OF PT AT 1745 FROM NATALY FREEMAN. PT TRANSFER FROM ICU TO CCU ROOM 213 VIA BED/O2/IV. VSS STABLE IN ROUTE AND UPON ARRIVAL. PT ON TELE, IN BED WITH BED ALARM SET. WILL CONTINUE TO MONITOR.
[2020-01-06 04:45] VITALS: BP 116/79
--- NOTE | 2020-01-06 04:55 | NUR ---
COMPLAINS THAT SHE WANTS SOMETHING FOR SLEEP (IT IS 0455). SHE HAS MULITPLE COMPLAINTS. SHE DOES NOT LIKE THE THICKENED LIQUIDS. NEEDS ENCOURAGING TO GET UP TO THE RESTROOM, SHE TENDS TO STAY CONTINENT WHEN SHE GETS UP REGULARLY.COMPLAINS THAT HER EYES HURT AND SHE IS COUGHING. CAREPLAN REVIEWED.
[2020-01-06 07:42] LABS: HEMATOCRIT 35.3 % (37.0-47.0); HEMOGLOBIN 11.3 gm/dL (12.0-15.0); MCH 28.6 pg (26.0-34.0); MCV 89.4 fL (80.0-100.0); RBC 3.95 mil/uL (4.20-5.00); RDW 18.1 % (10.5-14.5)
[2020-01-06 07:52] LABS: CREATININE 1.3 mg/dL (0.6-1.0)
[2020-01-06 08:00] VITALS: BP 119/64
--- NOTE | 2020-01-06 10:49 | NUR ---
Patient admits with low o2 sats. Patient admitted from [facility]. Sp with Lynn at PA office who was not aware patient admitted to [facility], She gave consent to tx. Updated RN Americo. [facility].
[2020-01-06 12:00] VITALS: BP 121/62
[2020-01-06 16:00] VITALS: BP 140/70
[2020-01-06 18:10] VITALS: BP 121/62
--- NOTE | 2020-01-06 18:22 | NUR ---
PT CARE ASSUMED AT 0700. ASSESSMENT CHARTED. MEDICATION CHARTED. PT TO SWALLOW STUDY. PT NEEDS TO BE CONVINCED TO TAKE MEDICATION. WHEN 'SITTING' IN THE CHAIR, PT TENDS TO LAY DOWN AND NEEDS TO BE REMINDED TO SIT UP. PT TO BE TRANSFERRED TO 357.
[2020-01-06 20:00] VITALS: BP 114/62
--- NOTE | 2020-01-06 21:52 | NUR ---
PT ALERT AND ORIENTED X4. REINSTRUCTED PT ON FALL PRECAUTIONS. BED ALARM IS ON VSS AFEBRILE HRR SR ON THE MONITOR. NO C/O PAIN . NO S/S RESP DISTRESS PRESENTLY.
[2020-01-07] VITALS (7 sets, daily range): BP systolic 100–125; BP diastolic 45–76
--- NOTE | 2020-01-07 00:06 | NUR ---
PT RESTING QUIETLY. RT TX GIVEN PER RT. VSS 100% ON 2LNC. NO C/O PAIN OR S/S DISTRESS. BED DOWN BED ALARM IS ON.
--- NOTE | 2020-01-07 03:53 | NUR ---
PT PROGRESSING SLOWLY TOWARDS D/C GOALS. VSS AFEBRILE. SAT 100% ON 2LNC. RESP TX GIVEN PER RT. LUNGS STILL HAVE WHEEZES. UNLABORED PRESENTLY. PT WENT BACK TO SLEEP. NO C/O PAIN OR SOA. BED ALARM ON. INC OF URINE MOD AMTS. PT ALSO VOIDED PER BSC. ZOSYN INFUSING.
[2020-01-07 05:58] LABS: HEMATOCRIT 34.7 % (37.0-47.0); MCH 28.3 pg (26.0-34.0); MCHC 31.8 g/dL (28.0-37.0); RBC 3.9 mil/uL (4.20-5.00); RDW 17.6 % (10.5-14.5); WBC 9.2 thou/uL (4.0-11.0)
[2020-01-07 06:10] LABS: ANION GAP < 0 mmol/L (7-16); BUN 24 mg/dL (7-18); CHLORIDE 99 mmol/L (98-107); CO2 41 mmol/L (21-32); CREATININE 1.1 mg/dL (0.6-1.0); GLUCOSE 209 mg/dL (74-106); MAGNESIUM 2.5 mg/dL (1.8-2.4); POTASSIUM 4.4 mmol/L (3.5-5.1); SODIUM 139 mmol/L (136-145)
--- NOTE | 2020-01-07 13:32 | NUR ---
SW reviewed chart and spoke with nursing and attending physician. Pt was transferred to from . Psych consulted. account planner to fax clinical info to [facility] for review. Pt will return to [facility], when medically stable. LAYNE is following to assist as needed with discharge planning.
--- NOTE | 2020-01-07 13:45 | NUR ---
FAXED CLINICAL UPDATE TO [facility] SPOKE WITH [facility] IN ADM SHE RECEIVED UPDATE AND WILL FOLLOW.
--- NOTE | 2020-01-07 14:26 | NUR ---
CARED ASSUMED AT 0700, PT ALERT AND ORIENTED X3, FORGETFUL AT TIMES AND CAN BE IMPULSIVE. DENIES ANY CHEST PAIN, NAUSEA AND VOMITING. PT IS ON 2L OF O2 VIA NC AND HAS SOME SOB WITH EXERTION. CALL LIGHT AND TABLE WITHIN REACH. BED ALARM ON AND BED AT LOWEST LEVEL. WILL CONTINUE TO MONITOR.
--- NOTE | 2020-01-08 03:07 | NUR ---
PT ALERT AND ORIENTED X3 . VSS AFEBRILE. O2 SAT DECREASED TO 80'S WITHOUT O2 THEN QUICKLY BACK TO 90'S WITH 2LNC ON. PT KEEPS TAKING O2 OFF IN HER SLEEP. LUNGS ARE DIMINISHED WITH WHEEZES. UNLABORED ON 2L NC PRESENTLY. PT VOIDS AND AND HAS HAD A STOOL TODAY. NO C/O PAIN PRESENTLY. ZOSYN INFUSING. NO S/S DISTRESS. WILL CONTINUE TO MONITOR PT FOR CHANGES.
[2020-01-08 03:20] VITALS: BP 134/68
[2020-01-08 08:04] VITALS: BP 132/65
--- NOTE | 2020-01-08 12:10 | NUR ---
DISCHARGE NOTE: SW reviewed chart and spoke with nursing and attending physicain. Pt is medically stable for discharge back to [facility] today. Awaiting final discharge orders/summary at this time. Pt able to transport via w/c van. marine air ground task force planners to coordinate with [facility] and [facility]. Chart copy requested from . LAYNE notified Saud Ocasio with the [facility] Public Exhaust Worker's office of pt's discharge. Consent for discharge obtained. Nursing to call report. No additional SW needs identified at this time, but is available to assist should needs arise.
[2020-01-08] MEDS ORDERED: PREDNISONE 5 MG5 M1 PO (12:44)
[2020-01-08] MEDS ORDERED: ZYPREXA 5 MG TAB5 M1 PO (12:44)
[2020-01-08] MEDS ORDERED: LASIX 40 MG TAB40 M2 PO (12:44)
[2020-01-08] MEDS ORDERED: AUGMENTIN 875-1 EACH PO (12:44)
[2020-01-08] MEDS ORDERED: PEPCID20 MG PO (12:44)
--- NOTE | 2020-01-08 14:28 | NUR ---
PT DISCHARGING ROBB BACK TO [facility] FAXED DC ORDERS/SUMMARY RECEIVED CONFIRMATION AND SPOKE WITH ANTOINE IN ADM TRANSPORT ARRANGED [facility] FOR 1530 TODAY. FAXED DC ORDERS TO PT'S PA'S OFFICE RECEIVED CONFIRMATION. NOTIFIED UNIT TIME OF TRANSPORT AND CHART COPY PER US.
--- NOTE | 2020-01-08 16:37 | NUR ---
PATIENT DISCHARGED TO [facility] AT THIS TIME. SHE IS ALERT ORIENTED X3. AMBULATES WITH STEAD GAIT. SHE WAS CALM AT VANDANA OF TRANSFER. WILL CONT [facility] PLAN OF CARE.
== END 2020-01-08 17:25 | DRG 871 ==
LOC: ER 09:07 → 2N 11:55 → EROBS 11:55 → ICU 14:39 → 2N 01-05 16:20 → 3W 01-06 20:17
PROVIDERS: Emergency Medicine; Internal Medicine Pulmonary Disease; ADMIT Internal Medicine; ATTEND Internal Medicine
PROC: 5A09357 Assistance with Respiratory Ventilation, Less than 24 Consecutive Hours, Continuous Positive Airway Pressure (ICD-10-PCS; principal; 2020-01-05)
DX: A41.9 Sepsis, unspecified organism (principal); J96.22 Acute and chronic respiratory failure with hypercapnia; J18.9 Pneumonia, unspecified organism; G92 Toxic encephalopathy; I50.23 Acute on chronic systolic (congestive) heart failure; J96.21 Acute and chronic respiratory failure with hypoxia; F20.0 Paranoid schizophrenia; J91.8 Pleural effusion in other conditions classified elsewhere; I42.8 Other cardiomyopathies; Z20.828 Contact with and (suspected) exposure to other viral communicable diseases; J43.9 Emphysema, unspecified; E11.9 Type 2 diabetes mellitus without complications; E03.9 Hypothyroidism, unspecified; I11.0 Hypertensive heart disease with heart failure; E78.5 Hyperlipidemia, unspecified; F41.9 Anxiety disorder, unspecified; G47.00 Insomnia, unspecified; F17.210 Nicotine dependence, cigarettes, uncomplicated; K59.00 Constipation, unspecified; R13.10 Dysphagia, unspecified; I08.3 Combined rheumatic disorders of mitral, aortic and tricuspid valves; Z79.82 Long term (current) use of aspirin; Z85.71 Personal history of Hodgkin lymphoma; Z79.899 Other long term (current) drug therapy; Y95 Nosocomial condition
CPT/HCPCS: 10081; 10204; 10879

== ENCOUNTER 2020-04-21 06:15 | Inpatient (IN) | payer OTHER ==
[~2020-04-21] VITALS: Ht 165.1 cm; Wt 52.9 kg
[~2020-04-21 06:15] MED LIST changes: +ASA81BEC PO; +CARVEDILOL12.5 MG PO; +CARVEDILOL6.25 M1 PO; +CLOZAPINE100 M1 PO; +CORRECTOL5 M1 PO; +DEPAKOTE ER500 M1 PO; +DIVALPROEX SOD250 MG PO; +FERROUS SULFAT325 MG PO; +HALOPERIDOL 2 MG2 M1 PO; +LASIX 40 MG TAB40 M2 PO; +LEVO-T100 MCG PO; +LIPITOR 20 MG T20 M1 PO; +OLANZAPINE5 M1 PO; +PEPCID20 MG PO; +PREDNISONE 5 MG5 M1 PO; +ZYPREXA 5 MG TAB5 M1 PO
[2020-04-21 06:16] VITALS: BP 115/53
[2020-04-21 06:44] LABS: BE(vivo) 7.4 mmol/L (-2 to +3); HCO3 32.3 mmol/L (22.0-26.0); PCO2 46.8 mmHg (35.0-45.0); PO2 91.8 mmHg (80.0-100.0); pH 7.457 (7.360-7.450); sO2 97.3 % (92.0-98.0)
[2020-04-21 07:03] LABS: RDW 20.1 % (10.5-14.5); WBC 15.9 thou/uL (4.0-11.0)
[2020-04-21 07:05] LABS: HEMATOCRIT 35.9 % (37.0-47.0); HEMOGLOBIN 11.2 gm/dL (12.0-15.0); MCH 28.1 pg (26.0-34.0); MCHC 31.3 g/dL (28.0-37.0); MCV 89.9 fL (80.0-100.0); PLATELET COUNT 189 thou/uL (150-400); RBC 3.99 mil/uL (4.20-5.00)
[2020-04-21 07:19] LABS: ANION GAP 11 mmol/L (7-16); BUN 44 mg/dL (7-18); CALCIUM 8.4 mg/dL (8.5-10.1); CHLORIDE 103 mmol/L (98-107); CO2 29 mmol/L (21-32); CREATININE 1.4 mg/dL (0.6-1.0); GLUCOSE 180 mg/dL (74-106); POTASSIUM 3.9 mmol/L (3.5-5.1); SODIUM 143 mmol/L (136-145)
[2020-04-21 07:31] LABS: URINE BILIRUBIN NEGATIVE (Negative); URINE BLOOD NEGATIVE (Negative); URINE CLARITY CLEAR; URINE COLOR YELLOW; URINE GLUCOSE-RANDOM* NEGATIVE (Negative); URINE KETONES NEGATIVE (Negative); URINE LEUKOCYTES-REFLEX NEGATIVE (Negative); URINE NITRITE-REFLEX NEGATIVE (Negative); URINE PROTEIN (DIPSTICK) NEGATIVE (Negative)
[2020-04-21 07:36] LABS: ALBUMIN 2.7 g/dL (3.4-5.0); MAGNESIUM 2.3 mg/dL (1.8-2.4); SGOT 496 U/L (15-37); SGPT 1122 U/L (30-65); TOTAL BILIRUBIN 0.7 mg/dL (0.2-1.0); TROPONIN-I <0.06 ng/mL (<0.06)
[2020-04-21 07:38] LABS: AMP/METHAMP Negative (Negative); BARBITURATES Negative (Negative); BENZODIAZEPINES Negative (Negative); COCAINE Negative (Negative); METHADONE Negative (Negative); OPIATES Negative (Negative); PCP Negative (Negative)
--- NOTE | 2020-04-21 07:42 | EKG ---
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: : 1960 Requested By: Gabino Wilson Order Number: [id number] MD: Beto Moreno Measurements Intervals Partridge Rate: 79 P: 56 AK: 203 QRS: -44 QRSD: 168 T: 127 QT: 456 QTc: 523 Interpretive Statements Sinus rhythm Borderline prolonged AK interval Left atrial enlargement Right bundle branch block LVH with IVCD and secondary repol abnrm Prolonged QT interval Compared to ECG 01/04/2020 09:24:35 Atrial abnormality now present Electronically Signed On 04-21-2020 7:42:44 CDT by Beto Moreno [email or web address] <ELECTRONICALLY SIGNED> By: Beto Moreno MD, FACC 04/21/20 0742 1 1 Beto Moreno MD, [facility] /EPI
[2020-04-21 08:29] LABS: ABSOLUTE NEUTROPHILS 13.7 thou/uL (1.4-8.2); ANISOCYTOSIS 1+; LARGE PLATELETS OCCASIONAL; NUCLEATED RBCS 1 /100WBC; POIKILOCYTOSIS SLIGHT; POLYCHROMASIA SLIGHT
[2020-04-21 11:14] LABS: TSH 1.682 uIU/mL (0.358-3.740)
[2020-04-21 11:40] LABS: FOLIC ACID 42.4 ng/mL (8.6-58.9)
[2020-04-21 19:40] VITALS: BP 122/64
[2020-04-21 21:46] VITALS: BP 94/77
[2020-04-22 00:08] VITALS: BP 111/56
[2020-04-22] MEDS ORDERED: BREO ELLIPTA 21 EACH INH (01:05)
[2020-04-22] MEDS ORDERED: GLIPIZIDE 10 MG10 MG PO ×2 (01:06→01:08)
[2020-04-22] MEDS ORDERED: METFORMIN HCL500 MG PO (01:07)
[2020-04-22] MEDS ORDERED: HALDOL DEC100 MG/1 M IM (01:09)
[2020-04-22] MEDS ORDERED: LOPRESSOR50 MG PO (01:10)
[2020-04-22] MEDS ORDERED: OXYBUTYNIN 5 MG5 M2 PO (01:12)
[2020-04-22] MEDS ORDERED: BUMETANIDE0.5 MG PO (01:15)
[2020-04-22] MEDS ORDERED: CELEXA 20 MG TA20 MG PO (01:18)
--- NOTE | 2020-04-22 01:30 | NUR ---
PT ARRIVED TO THE UNIT VIA BED WITH ER MIXER TENDER. PT ARRIVED WITHOUT ANY IVF RUNNING AND NO IV ACCESS. PLACED IN ROOM 351. ADMISSION ASSESSMENTS COMPLETED. PT SLOW TO ANSWER QUESTIONS JUST FREQUENTLY ASKING FOR WATER. SEE CHARTING.
[2020-04-22 02:06] VITALS: BP 99/53
--- NOTE | 2020-04-22 15:17 | NUR ---
PT CARE ASSUMED AT 0700, PT ALERT AND ORIENTED X2, CONFUSED, FORGETFUL AND IMPULSIVE. PT DENIES ANY PAIN, NAUSEA AND VOMITTING. PT IS ON 4L OF OXYGEN`, SOB WITH EXERTION. FALL PRECAUTIONS IN PLACE, PT CONTINUES TO TRY TO GET OUT OF BED, EDUCATIONS REINFORCED. YELLOW SOCKS ON, BED ALARM ON WITH BED AT LOWEST LEVEL AND CALL LIGHT AND TABLE WITHIN REACH.
--- NOTE | 2020-04-22 15:48 | NUR ---
INITIAL ASSESSMENT: LAYNE reviewed chart and spoke with nursing and attending physician. Pt was admitted from [facility] due to AMS/sepsis/pneumonia. Pt was placed in Enhanced Isolation to r/o COVID-19. Pt's test was negative. Pt is afebrile and on IV abx. Pt is on 5L of O2. Pt with hx of schizophrenia. Pt is a alvarez of the State through [facility] Public Slate Roofer's office. LAYNE updated Saud Ocasio this morning of pt's admission. Plan is for pt to return to [facility] when medically stable. LAYNE faxed clinical info/COVID test results for the facility for review. LAYNE left voice message for BRITTNY Fontana at [facility]. LAYNE updated pt's nurse to obtain consents form the [employer]'s office. Anticipate pt will be ready for discharge back to [facility] tomorrow. LAYNE is following to assist as needed with discharge planning. [facility] PUBLIC PENSION FUND MANAGER- After Hours: [phone]
--- NOTE | 2020-04-22 16:01 | NUR ---
PT CARE ASSUMED AT 0700, PT ALERT AND ORIENTED X2, FORGETFUL, ABLE TO FOLLOW COMMANDS. PT DENIES CHEST PAIN, NAUSEA AND VOMITTING. PT COMPLAINS OF GENERALIZED PAIN, PAIN MED GIVEN PER ORDER. PT WOUND CARE COMPLETED AND PICTURES TAKEN. BA AND FECAL MANAGEMENT IN PLACE. FEEDING TUBE IN PLACE AND RUNNING PER ORDER. NO RESIDUAL NOTED. PT REPOITIONED EVERY [address] PRECAUTIONS IN PL[address]. CONTINUES TO BE IN ENHANCED PRECAUTIONS. WILL CONTINUE TO MONITOR.
[2020-04-22 16:15] VITALS: BP 101/51
[2020-04-22 20:20] VITALS: BP 123/71
--- NOTE | 2020-04-22 22:13 | NUR ---
REPORT CALLED TO GAVIN FREEMAN. WILL TRANSFER PT VIA BED TO ROOM 226.
[2020-04-23 01:07] VITALS: BP 104/48
--- NOTE | 2020-04-23 06:21 | NUR ---
Pt transfered to SICU from 3W. Pt is A&O x3. Confused. Forgetful. Pt slept well. At some point slept off and on. Maxwell in place for voiding. Pt asked several times to have have maxwell taken off. Asked to have brief on for voiding. Education provided as to why maxwell is in place. Unsure how much of it patient comprehends. This morning, pt have been asking for sedative. Pt educated she does not need sedative. Fall precautions in place. LFA IV SL. Call light within reach. Hourly roundings made. Will continue to monitor.
[2020-04-23 06:54] LABS: ALBUMIN 2.8 g/dL (3.4-5.0); CALCIUM 7.9 mg/dL (8.5-10.1); CREATININE 1.2 mg/dL (0.6-1.0); POTASSIUM 3.5 mmol/L (3.5-5.1); TOTAL BILIRUBIN 0.8 mg/dL (0.2-1.0); TOTAL PROTEIN 6.3 g/dL (6.4-8.2)
[2020-04-23] MEDS ORDERED: CLOZAPINE100 MG PO (08:11)
[2020-04-23 08:28] VITALS: BP 108/47
--- NOTE | 2020-04-23 10:36 | NUR ---
DISCHARGE NOTE: LAYNE reviewed chart and spoke with nursing. Pt was transferred from to then to SICU. Pt is medically stable for discharge back to [facility] today. LAYNE arranged w/c van transportation through [facility] [facility] for [id number]. LAYNE faxed finalized discharge orders to [facility] and spoke with [employer], to notify of pt's discharge and transportation time. LAYNE notified Saud Ocasio with the [facility] [place] office of discharge. Saud gave consent for discharge. LAYNE faxed discharge ppwk to the [place] office for review. Chart copy requested from [facility]. LAYNE provided number for report to pt's nurse and notified of discharge time. No additional SW needs identified at this time, but is available to assist should needs arise.
--- NOTE | 2020-04-23 10:48 | NUR ---
ASSUMED CARE AT CHANGE OF SHIFT. ALERT X3, SLEEPY, COMPLIANT WITH CARES. REMOVED IV AND BA FOR DISCHARGE THIS MORNING AT 11AM VIA WHEELCHAIR PAIN. LEFT MESSAGE WITH FACILTY IN ORDER TO GIVE REPORT.
== END 2020-04-23 11:50 | DRG 871 ==
LOC: ER 06:15 → EROBS 09:00 → 3W 09:00 → EROBS 09:38 → 3W 21:15 → SICU 04-22 22:24
PROVIDERS: Emergency Medicine; ADMIT Hospitalist; ATTEND Hospitalist
DX: A41.9 Sepsis, unspecified organism (principal); J18.9 Pneumonia, unspecified organism; I42.9 Cardiomyopathy, unspecified; N17.9 Acute kidney failure, unspecified; I13.0 Hypertensive heart and chronic kidney disease with heart failure and stage 1 through stage 4 chronic kidney disease, or unspecified chronic kidney disease; G93.40 Encephalopathy, unspecified; R65.20 Severe sepsis without septic shock; E11.649 Type 2 diabetes mellitus with hypoglycemia without coma; Z20.828 Contact with and (suspected) exposure to other viral communicable diseases; J43.9 Emphysema, unspecified; I50.9 Heart failure, unspecified; E03.9 Hypothyroidism, unspecified; E78.5 Hyperlipidemia, unspecified; K59.00 Constipation, unspecified; D64.9 Anemia, unspecified; G47.00 Insomnia, unspecified; N18.9 Chronic kidney disease, unspecified; F17.210 Nicotine dependence, cigarettes, uncomplicated; F41.9 Anxiety disorder, unspecified; F60.1 Schizoid personality disorder; E11.22 Type 2 diabetes mellitus with diabetic chronic kidney disease; Z79.899 Other long term (current) drug therapy; Z85.72 Personal history of non-Hodgkin lymphomas
CPT/HCPCS: 10879; 15001; 15002